=== PATIENT | female | born 1985 | race Caucasian/White ===

== ENCOUNTER 2023-03-19 20:08 | Outpatient (REF) | payer MEDICAID, SELFPAY ==
[2023-03-26 12:08] LABS: Age Gdln ACOG Testing Note (.); HPV Aptima Negative (Negative); IGP, Aptima HPV, rfx 16/18,45 Note (.)
== END 2023-03-19 20:09 | disposition home or self-care (01) ==
LOC: LAB 20:08
PROVIDERS: Visit Provider Obstetrics & Gynecology
DX: Z01.419 Encounter for gynecological examination (general) (routine) without abnormal findings (principal)
CPT/HCPCS: 87624; G0145

== ENCOUNTER 2023-10-08 22:08 | Outpatient (REF) | payer MEDICAID, SELFPAY ==
--- OUTSIDE RECORDS SUMMARY | 2023-10-08 22:14 | XMS_ITS | CCD ---
Author Organization [facility] Care Team Providers Care Manager [employer] Name Role Phone DR KHADRA COX Attending Unavailable KENNY, DR GAVIRIA Consulting Unavailable DR KHADRA COX Admitting Unavailable HOY ., DR MAIN Primary Care Unavailable KHADRA COX Attending Unavailable Allergies Allergy Classification Reported Allergen(s) Allergy Type Date of Onset Reaction(s) Facility (1 source) Codeine Drug Allergy 08-25-2014 [facility] Repository Problems Problem Classification Problem Date Documented Date Episodic/Chronic Immunizations and screening for infectious disease (1 source) Encounter for screening for human papillomavirus (HPV); Translations: [ENC SCREENING HUMAN PAPILLOMAVIRUS] Onset: 03-19-2022 Episodic Other screening for suspected conditions (not mental disorders or infectious disease) (4 sources) Encounter for screening for malignant neoplasm of cervix; Translations: [ENC SCREENING MALIG NEOPLASM CERV] Onset: 03-15-2022 Episodic Results Test Name Value Interpretation Reference Range Facil ity PAP ACOG PANEL 2: 30 to 65on 03-23-2022 . . Normal [facility] Comment on above: Result Comment: Performed at: WB Performed By: #### [id number] #### [facility] [address] [address] [address] Douglas Stout Age Gdln ACOG Testing 30-65 Normal [facility] Comment on above: Performed By: #### [id number] #### [facility] [address] [address] [address] Douglas Stout DIAGNOSIS: Comment Normal [facility] Comment on above: Result Comment: NEGATIVE FOR INTRAEPITHE LIAL LESION OR MALIGNANCY. Performed at: WB Performed By: #### [id number] #### [facility] [id number] Douglas Stout HPV Aptima Negative Normal Negative [facility] Comment on above: Result Comment: This nucleic acid amplif ication test detects fourteen high-risk HPV types (16,18,31,33,35,39,45,51,52,56,58,59,66,68) without differentiation. Performed at: =G Performed By: #### [id number] #### [facility] [address] [place] [address] Dr. Douglas Stout HPV Genotype Reflex Comment Normal [facility] Comment on above: Result Comment: Criteria not met, HPV Ge notype not performed. Performed at: WB Performed By: #### [id number] #### [facility] [address] [place] [address] Dr. Douglas Stout Methodology: Comment Normal [facility] Comment on above: Result Comment: This liquid based ThinPr ep(R) pap test was screened with the use of an image guided system. Performed at: WB Performed By: #### [id number] #### [facility] [address] [place] [address] Dr. Douglas Stout Note: Comment Normal [facility] Comment on above: Result Comment: The Pap smear is a scree neisha test designed to aid in the detection of premalignant and malignant conditions of the uterine cervix. It is not a diagnostic procedure and should not be used as the sole means of detecting cervical cancer. Both false-positive and false-negative reports do occur. . Performed at: WB Performed By: #### [id number] #### [facility] [address] [place] [address] Dr. Douglas Stout Performed by: Comment Normal [facility] Comment on above: Result Comment: Fang Raza [employer] ologist (ASCP) Performed at: WB Performed By: #### [id number] #### [facility] [address] [place] [address] Dr. Douglas Stout Specimen adequacy: Comment Normal [facility] Comment on above: Result Comment: Satisfactory for evaluat ion. Endocervical and/or squamous metaplastic cells (endocervical component) are present. Performed at: WB Performed By: #### [id number] #### [facility] [address] [place], [place] [address] Dr. Douglas Stout Encounters Encounter Date Encounter Type Care Provider Facility Start: 04-05-2023 End: 04-05-2023 ambulatory KHADRA COX Not Available Start: 03-15-2022 End: 03-15-[address] KHADRA COX Facility: Payers Date Payer Category Payer Medicaid [id number] 1985 Unknown [id number] 1985 Unknown [id number] 1958 Unknown [id number] Summary Purpose Family History No Family History Records FoundNo Family History Records Found Advance Directives No Advanced Directives Records FoundNo Advanced Directives Records Found Additional Source Comments INFORMATION SOURCE (unrecogn ized section and content) DATE CREATED AUTHOR 09/22/2022 [facility] DATE CREATED AUTHOR AUTHOR'S ORGANIZ ATION 04/07/2023 [facility] EPIC FOR RECORDS PERTAINING TO PATIENTS WHO ARE OR HAVE BEEN ENROLLED IN A CHEMICAL DEPENDENCY/SUBSTANCEABUSE PROGRAM, SOME INFORMATION MAY BE OMITTED. This clinical summary was aggregated from multiple sources. Caution should be exercised in using it in the provision of clinical care. This summary normalizes information from multiple sources, and as a consequence, information in this document may materially change the coding, format and clinical context of patient data. In addition, data may be omitted in some cases. CLINICAL DECISIONS SHOULD BE BASED ON THE PRIMARY CLINICAL RECORDS. [facility] [employer] provides no warranty or guarantee of the accuracy or completeness of information in this document.
== END 2023-10-08 22:09 | disposition home or self-care (01) ==
LOC: LAB 22:08
PROVIDERS: Visit Provider Obstetrics & Gynecology
DX: R87.612 Low grade squamous intraepithelial lesion on cytologic smear of cervix (LGSIL) (principal)
CPT/HCPCS: G0145

== ENCOUNTER 2024-03-22 12:16 | Outpatient (OUT) | payer MEDICAID, SELFPAY ==
[2024-03-22 13:41] LABS: Alanine Aminotransferase 16 U/L (14-59); Aspartate Amino Transferase 15 U/L (15-37)
== END 2024-03-22 12:17 | disposition home or self-care (01) ==
LOC: LAB 12:18
PROVIDERS: PCP Family Medicine
DX: B35.1 Tinea unguium (principal)
CPT/HCPCS: 36415; 84450; 84460

== ENCOUNTER 2024-03-25 20:57 | Outpatient (REF) | payer MEDICAID, SELFPAY ==
--- OUTSIDE RECORDS SUMMARY | 2024-03-25 21:00 | XMS_ITS | CCD ---
Author Organization [facility] Care Team Providers Care Ice Delivery Driver Name Role Phone DR HELDER TANG Attending Unavailable KENNY, DR GAVIRIA Consulting Unavailable DR HELDER TANG Admitting Unavailable COLBY ., DR MAIN Primary Care Unavailable Colby VAZQUEZ, Aris Donald Primary Care Provider [phone] HELDER TANG Attending Unavailable HELDER TANG Attending Unavailable KATHRIN BOOTH Attending Unavailable Allergies Allergy Classification Reported Allergen(s) Allergy Type Date of Onset Reaction(s) Facility (1 source) Codeine Drug Allergy 08-25-2014 [facility] (4 sources) Codeine Drug Allergy 03-19-2023 Unknown [facility] Work Phone: (4 sources) Prednisone Allergy to substance 03-19-2023 Other [facility] (4 sources) Wound Dressing Adhesive Drug Allergy 03-19-2023 Rash [facility] Medications Current Medications Medication Drug Class(es) Dates Sig (Normalized) Sig (Original) methylPREDNISolone (3 sources) Corticosteroid Start: 4 methylPREDNISolone (Medrol Dospak) 4 MG tablets Indications: Lichen planus Take as directed on package. 21 tablet 03/19/2024 Active terbinafine 250 mg oral tablet (1 source) Allylamine Antifungal Start: 4 End: 5 take 1 tablet by mouth once daily terbinafine (LamISIL) 250 MG tablet Indications: Onychomycosis Take 1 tablet (250 mg) by mouth Daily 90 tablet 03/24/2024 06/22/2024 Active Problems Active Problems Problem Classification Problem Date Documented Da te Episodic/Chronic Mycoses (5 sources) Onychomycosis; Translations: [Tinea unguium] 03-19-2024 Episodic Other connective tissue disease (2 sources) Pain in right foot; Translations: [Pain in right foot] 03-19-2024 Episodic Other inflammatory condition of skin (2 sources) Lichen planus; Translations: [Lichen planus, unspecified] 03-19-2024 Episodic Past or Other Problems Problem Classification Problem Date Documented Date [...] Name Value Interpretation Reference Range Facil ity AST AND Marcus 03-24-2024 [facility] PAP ACOG PANEL 2: 30 to 65on 03-23-2022 . . Normal [facility] Comment on above: Result Comment: Performed at: WB Performed By: #### [id number] #### [facility] [address] [place] [address] Dr. Douglas Stout Age Gdln ACOG Testing 30- Normal [facility] Comment on above: Performed By: #### [id number] #### [facility] [address] [address] [address] Douglas Stout DIAGNOSIS: Comment Normal [facility] Comment on above: Result Comment: NEGATIVE FOR INTRAEPITHE LIAL LESION OR MALIGNANCY. Performed at: WB Performed By: #### [id number] #### [facility] [address] [address] [address] Douglas Stout HPV Aptima Negative Normal Negative [facility] Comment on above: Result Comment: This nucleic acid amplif ication test detects fourteen high-risk HPV types (16,18,31,33,35,39,45,51,52,56,58,59,66,68) without differentiation. Performed at: =G Performed By: #### [id number] #### [facility] [address] [address] [address] Douglas Stout HPV Genotype Reflex Comment Normal [facility] Comment on above: Result Comment: Criteria not met, HPV Ge notype not performed. Performed at: WB Performed By: #### [id number] #### [facility] [address] [place] [address] Dr. Douglas Stout Methodology: Comment [facility] Comment on above: Result Comment: This liquid based ThinPr ep(R) pap test was screened with the use of an image guided system. Performed at: WB Performed By: #### [id number] #### [facility] [address] [place] [address] Dr. Douglas Stout Note: Comment Normal [facility] Comment on above: Result Comment: The Pap smear is a scree neisha test designed to aid in the detection of premalignant and malignant conditions of the uterine cervix. It is not a diagnostic procedure and should not be used as the sole means of detecting cervical cancer. Both false-positive and false-negative reports do occur. . Performed at: WB Performed By: #### [id number] #### [facility] [address] [place] [address] Dr. Douglas Stout Performed by: Comment Normal [facility] Comment on above: Result Comment: Fang Raza Cytotechn ologist (ASCP) Performed at: WB Performed By: #### [id number] #### [facility] [address] [place] [address] Dr. Douglas Stout Specimen adequacy: Comment [facility] Comment on above: Result Comment: Satisfactory for evaluat ion. Endocervical and/or squamous metaplastic cells (endocervical component) are present. Performed at: WB Performed By: #### [id number] #### [facility] [address] [place] [address] Dr. Douglas Stout Vital Signs Date Time Vital Sign Value Performing Clinician Faci lity 03-19-2024 13: Body height 175.3 cm Kathrin Booth DPM Work Phone: [facility] 03-19-2024 13:090400 Body mass index (BMI) [Ratio] 28.32 kg/m2 Kathrin Booth DPM Work Phone: [facility] 03-19-2024 13:090400 Body weight 87 kg Kathrin MARTINEZM Work Phone: [facility] Encounters Encounter Date Encounter Type Care Provider Facility Start: 03-24-2024 End: 03-24-2024 Orders Only Kathrin Booth DPM Work Phone: [facility] Comment on above: Onychomycosis (Prima ry Dx) Start: 03-19-2024 End: 03-19-2024 Bamboo flowsheet Kathrin Booth DPM Work Phone: [facility] Start: 03-19-2024 End: 03-19-2024 Bamboo flowsheet Kathrin Booth DPM Work Phone: [facility] Start: 03-19-2024 End: 03-19-2024 Office outpatient new 45 minutes Kathrin Booth DPM Work Phone: [facility] Comment on above: Onychomycosis (Prima ry Dx); Tinea pedis of right foot; Lichen planus; Right foot pain Start: 03-19-2024 End: 03-19-2024 ambulatory KATHRIN BOOTH Not Available Start: 10-08-2023 End: 10-08-2023 ambulatory HELDER TANG Not Available Start: 04-05-2023 End: 04-05-2023 ambulatory HELDER TANG Not Available Start: 03-15-2022 End: 03-15-[address] HELDER TANG Facility: Procedures Date Procedure Procedure Detail Performing Clinician Start: 03-24-2024 AST AND ALT Kathrin Booth DPM Work Phone: Plan of Treatment Date Care Activity Detail Author Start: 07-23-2024 End: 07-23-2024 Patient encounter procedure 07/23/2024 2:00 PM EST Office Visit [facility] [address] [place] [address] Kathrin Booth DPM [address] [place] [address] [facility] Start: 03-25-2024 End: 03-25-2024 Patient encounter procedure 03/25/2024 2:00 PM EST Office Visit [facility] [address] [place] [id number] Helder Tang DO [address] [place] [address] [facility] Start: 03-19-2024 End: 03-19-2025 Alanine aminotransferase [Enzymatic activity/volume] in Serum or Plasma ALT Lab Routine Onychomycosis Expected: 03/19/2024 (Approximate), Expires: 03/19/2025 [facility] Work Phone: Comment on above: Expected: 03/19/2024 (Approximate), Expires: 03/19/2025 Start: 03-19-2024 End: 03-19-2025 Aspartate aminotransferase [Enzymatic activity/volume] in Serum or Plasma AST Lab Routine Onychomycosis Expected: 03/19/2024 (Approximate), Expires: 03/19/2025 [facility] Comment on above: Expected: 03/19/2024 (Approximate), Expires: 03/19/2025 Start: 03-19-2024 End: 03-19-2024 Patient encounter procedure 03/19/2024 1:30 PM EDT Office Visit [facility] [address] [place] [phone] Kathrin Booth DPM [address] [place] [address] Arrived [facility] Comment on above: Arrived Immunizations Immunization Date Immunization Notes Care Provider [facility] 01-19-1999 measles, mumps and rubella virus vaccine Kathrin Booth DPM Work Phone: [facility] 01-08-1992 diphtheria, tetanus toxoids and pertussis vaccine Kathrin Booth DPM Work Phone: [facility] 01-07-1991 diphtheria, tetanus toxoids and pertussis vaccine Kathrin Booth DPM Work Phone: [facility] 01-07-1991 trivalent poliovirus vaccine, live, oral Kathrin Rusher DPM Work Phone: [facility] 12-31-1989 diphtheria, tetanus toxoids and pertussis vaccine Kathrin Rusher DPM Work Phone: [facility] 05-18-1988 haemophilus influenz ae type b vaccine, conjugate unspecified formulation Kathrin Rusher DPM Work Phone: [facility] 03-15-1988 diphtheria, tetanus toxoids and pertussis vaccine Kathrin Rusher DPM Work Phone: [facility] 03-15-1988 trivalent poliovirus vaccine, live, oral Kathrin Rusher DPM Work Phone: [facility] 02-03-1988 diphtheria, tetanus toxoids and pertussis vaccine Kathrin Rusher DPM Work Phone: [facility] 02-03-1988 trivalent poliovirus vaccine, live, oral Kathrin Rusher DPM Work Phone: [facility] 1986 measles, mumps and rubella virus vaccine Kathrin Rusher DPM Work Phone: [facility] 1986 trivalent poliovirus vaccine, live, oral Kathrin Rusher DPM Work Phone: [facility] Payers Date Payer Category Payer Medicaid [employer] [place] [place] [id number] 2022 Medicaid [id number] 1986 Unknown [id number] 1986 Unknown [id number] 1986 Unknown [id number] 1986 Unknown [id number] 1959 Unknown [id number] Social History Date Type Detail Facility Start: 03-05-2023 End: 03-19-2024 Tobacco smoking status ILIS Smokes tobacco daily [facility] History of tobacco use Cigarette Smoker [facility] Start: 10-08-2023 End: 03-19-2024 Alcoholic beverage intake Current drinker of alcohol (finding) [facility] Start: 03-05-2023 End: 03-19-2024 History of Social function [facility] Start: 03-05-2023 End: 03-19-2024 Tobacco use panel [facility] Start: 03-05-2023 Tobacco Comment Patient starte d smoking 20 years ago (noted 03/15/22).Smokes 11-20 cigarettes/day after 31-60 minutes of waking up. [facility] Start: 03-05-2023 Alcohol Comment 3 or 4 drinks on a typical day / 2 to 4 times a month. [facility] Start: 1985 Sex assigned at Female [facility] Start: 03-14-2023 Gender identity Identifies as female gender (finding) [facility] Start: 03-14-2023 Sexual orientation Heterosexual (fin ding) [facility] History of Present illness Narrative 03-19-2024 Kathrin Booth DPM - 03/19/2024 1:30 PM EDT Note Date & Type Note Facility 03-19-2024 History of Presen t illness Narrative Images from the original note were not included. Subjective Patient ID: Carly Ventura is a 39 y.o. 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 Pt relates having lichens planus and is now localized to right foot, pt relates very itchy. ). HPI This is a new patient who presents to clinic with multiple concerns. Patient primarily concerned with a rash on the plantar aspect of the right foot. She states that she has been diagnosed with lichen planus a proximally 3 years ago by a machine repairman who took a biopsy from a rash on her wrist. She states that since that time she has had a rash on the plantar aspect of the right foot. She notes pruritus. She has tried topical steroid ointment as well as topical antifungal without relief of symptoms. Continues to have redness, scaling, pruritus on the plantar aspect of the right foot. Additionally patient is concerned about yellow discoloration of the right hallux toenail. She states that she noticed this a few months ago after removing toenail [place]. No treatment tried. She denies injury. Review of Systems Constitutional: Negative for activity change and appetite change. Respiratory: Negative for chest tightness and shortness of breath. Cardiovascular: Negative for chest pain and leg swelling. Musculoskeletal: Negative for arthralgias. Skin: Positive for color change. Negative for wound. Neurological: Negative for weakness and numbness. Psychiatric/Behavioral: Negative for agitation and behavioral problems. Hematological: Does not bruise/bleed easily. Endocrine: Negative for cold intolerance and heat intolerance. Allergic/Immunologic: Negative for immunocompromised state. Past medical History Past Medical History: Diagnosis Date Anxiety Cervical dysplasia Cystitis Heart murmur HPV in female Medications Current Outpatient Medications: methylPREDNISolone (Medrol Dospak) 4 MG tablets, Take as directed on package., Disp: 21 tablet, Rfl: 0 Allergies Codeine, Prednisone, and Wound dressing adhesive Past Surgical History Past Surgical History: Procedure Laterality Date CERVICAL BIOPSY W/ LOOP ELECTRODE EXCISION 2018 SECTION, LOW TRANSVERSE 2005,2008 PAP SMEAR 02/16/2020 negative TUBAL LIGATION 2009 Family History Family History Problem Relation Name Age of Onset Heart disease Mother Psoriasis Neg Hx Objective Physical Exam Constitutional: General: She is not in acute distress. HENT: Head: Normocephalic and atraumatic. Cardiovascular: Pulses: Normal pulses. Pulmonary: Effort: Pulmonary effort is normal. No respiratory distress. Musculoskeletal: Cervical back: Neck supple. Skin: Capillary Refill: Capillary refill takes less than 2 seconds. Comments: Right hallux toenail exhibit clinical mycosis with thickened appearance, yellow/brown discoloration, crumbly texture, subungual debris. There is onycholysis of approximately 50 percent of the distal toenail. Slight tenderness with manipulation. There is scaling, peeling of the skin with mild erythema in a moccasin distribution on the plantar aspect of the right foot. No active drainage noted. Mild maceration in peeling of the skin with redness interdigitally in the 3rd and 4th webspace most notably of the right foot. Neurological: Mental Status: She is alert. Comments: No loss of protective sensation, gross sensation intact. Psychiatric: Mood and Affect: Mood normal. Behavior: Behavior normal. Assessment/Plan ICD-10-CM 1. Onychomycosis B35.1 ALT AST 2. Tinea pedis of right foot B35.3 3. Lichen planus L43.9 methylPREDNISolone (Medrol Dospak) 4 MG tablets 4. Right foot pain M79.671 Patient was examined and evaluated. Clinically patient seems to have onychomycosis and I discussed causes and treatment options. Treatment options were laid out including observation versus periodic debridement versus topical or oral antifungals. Additionally I have discussed chemical matrixectomy. At this time the patient elects for oral antifungal therapy. A clean nail nipper was utilized to take a sample of the affected right hallux toenail and sent for pathological examination, fungal stain, and culture to guide antifungal therapy. A nail nipper and electric bur tap grinder were also utilized to debride the affected nails to help reduce fungal load and to palliate the symptomatic nails. Once nail specimen reviewed if there is positive fungal infection then she will get lab work. I printed out in order requisition for her today because she will get this done at [facility]. When I receive these results I will prescribe oral antifungal therapy if appropriate. Follow-up in 4 months. Additionally patient has clinical exam consistent with tinea pedis. Possibility of lichen planus as well given her history of biopsy but this was many years ago and on her wrist. Recommend oral Medrol Dosepak at this time to reduce pruritic symptomatology along the plantar aspect of the right foot. Also believe there is a component of fungal infection given the scaling, erythema, peeling of the skin in a moccasin distribution. Recommend oral antifungal therapy. At this time we will see if there is fungal disease in the nail as well because this will change the duration of oral Lamisil therapy. If her liver enzymes are within normal we will do 3 months of oral Lamisil which will clear both the skin and nail infection very likely. Follow up 4 months for re-evaluation. This note was created with the assistance of a speech recognition program. While intending to generate a timely document that accurately reflects the content of the visit, no guarantee can be provided that every grammatical or spelling mistake has been or will be identified or corrected. Thank you for your understanding. Kathrin Booth DPM documented in this encounter [facility] Evaluation note Note Date & Type Note Facility Evaluation note Diagnosis Onychomycosis- Primary Dermatophytosis of nail Tinea pedis of right foot Lichen planus Right foot pain Pain in soft tissues of limb documented in this encounter [facility] Evaluation note Note Date & Type Note Facility Evaluation note Diagnosis Onychomycosis- Primary Dermatophytosis of nail documented in this encounter [facility] Summary Purpose Family History No Family History Records FoundNo Family History Records Found Advance Directives No Advanced Directives Records FoundNo Advanced Directives Records Found Additional Source Comments INFORMATION SOURCE (unrecogn ized section and content) DATE CREATED AUTHOR 09/22/2022 [facility] DATE CREATED AUTHOR AUTHOR'S ORGANIZ ATION 03/21/2024 [facility] EPIC Care Teams (unrecognized sec tion and content) Ice Delivery Driver Relationship Specialty Start Date End Date Aris Bishop MD [address] [place] [address] PCP - General Family Medicine 03/19/23 Ice Delivery Driver Relationship Specialty Start Date End Date Aris Bishop MD [address] [place] [address] PCP - General Family Medicine 03/19/23 Ice Delivery Driver Relationship Specialty Start Date End Date Aris Bishop MD [address] [place] [address] PCP - General Family Medicine 03/19/23 Reason for Visit (unrecogniz ed section and content) Reason Comments 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 Pt relates having lichens planus and is now localized to right foot, pt relates very itchy. FOR RECORDS PERTAINING TO PATIENTS WHO ARE [...] BE BASED ON THE PRIMARY CLINICAL RECORDS. [employer] provides no warranty or guarantee of the accuracy or completeness of information in this document.
== END 2024-03-25 20:58 | disposition home or self-care (01) ==
LOC: LAB 20:57
PROVIDERS: PCP Family Medicine; Visit Provider Obstetrics & Gynecology
DX: Z01.419 Encounter for gynecological examination (general) (routine) without abnormal findings (principal)
CPT/HCPCS: 87624; 88175

== ENCOUNTER 2024-03-29 07:58 | Outpatient (OUT) | payer MEDICAID, SELFPAY ==
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
[2024-03-29 08:39] LABS: Basophils Absolute Auto 0.1 10^3/uL (0.0-0.1); Basophils Percent Auto 0.5 % (0.2-2.0); Eosinophils Absolute Auto 0.2 10^3/uL (0.0-0.7); Eosinophils Percent Auto 1.7 % (0.9-7.0); Hematocrit 42.5 % (36.0-48.0); Hemoglobin 13.8 g/dL (12.0-16.0); Immature Granulocytes Abs Auto 0.07 10^3/uL (0.00-0.03); Immature Granulocytes Pct Auto 0.7 % (0.0-0.5); Lymphocytes Absolute Auto 2.6 10^3/uL (1.2-3.8); Lymphocytes Percent Auto 25.5 % (20.5-60.0); Mean Corpuscular HGB Conc 32.5 g/dL (29.9-35.2); Mean Corpuscular Volume 95.5 fL (81.0-99.0); Mean Platelet Volume 9.9 fL (9.5-13.5); Monocytes Absolute Auto 0.8 10^3/uL (0.3-0.8); Monocytes Percent Auto 7.9 % (1.7-12.0); Neutrophils Absolute Auto 6.5 10^3/uL (1.4-6.5); Neutrophils Percent Auto 63.7 % (43.0-75.0); Platelet Count 233 10^3/uL (150-450); Red Blood Count 4.45 10^6/uL (4.20-5.40); Red Cell Distribution Width 13.9 % (11.0-15.0); White Blood Count 10.2 10^3/uL (4.0-11.0)
[2024-03-29 08:44] LABS: Estimated Average Glucose 111 mg/dL; Glycohemoglobin A1C 5.5 % (4.5-6.2)
[2024-03-29 09:20] LABS: Alanine Aminotransferase 15 U/L (14-59); Albumin Globulin Ratio 0.9; Albumin Level 3.2 g/dL (3.4-5.0); Alkaline Phosphatase 86 U/L (46-116); Anion Gap 13.4; Aspartate Amino Transferase 11 U/L (15-37); BUN Creatinine Ratio 8.9; Bilirubin Total 0.5 mg/dL (0.2-1.0); Calcium 8.5 mg/dL (8.5-10.1); Carbon Dioxide 25.9 mmol/L (21.0-32.0); Chloride 107 mmol/L (98-107); Chol HDL Ratio 3.6; Cholesterol 221 mg/dL (<=200); Estimated GFR (African America >60 (>=60 mL/min/1.73m^2); Estimated GFR (Non-African Ame >60 (>=60 mL/min/1.73m^2); Globulin 3.6 g/dL; Glucose 97 mg/dL (74-106); HDL Cholesterol 61 mg/dL (40-60); Potassium 4.3 mmol/L (3.5-5.1); Sodium 142 mmol/L (136-145); Total Protein 6.8 g/dL (6.4-8.2); Triglycerides 120 mg/dL (<=150)
== END 2024-03-29 07:59 | disposition home or self-care (01) ==
LOC: LAB 07:59
PROVIDERS: Visit Provider Obstetrics & Gynecology
DX: R53.83 Other fatigue (principal)
CPT/HCPCS: 36415; 80053; 80061; 83036; 84443; 85025

== ENCOUNTER 2024-10-04 08:50 | Outpatient (OUT) | payer MEDICAID, SELFPAY ==
--- OUTSIDE RECORDS SUMMARY | 2024-10-04 08:55 | XMS_ITS | CCD ---
Author Organization [facility] Providers Care Hosted Services Analyst Name Role Phone DR KHADRA TANG Attending Unavailable KITTY, DR GAVIRIA Consulting Unavailable KITTY, DR GAVIRIA Admitting Unavailable COLBY ., DR MAIN Primary Care Unavailable Aris Bishop MD Primary Care Provider [phone] KHADRA TANG Attending Unavailable KATHRIN MANSFIELD Attending Unavailable KHADRA TANG Attending Unavailable JOHN CEJA Attending Unavailable JOHN CEJA Referring Unavailable SANDER DANIELS Attending Unavailable JOHN CEJA Referring Unavailable NATI EDEN Attending Unavailable JOHN CEJA Referring Unavailable SANDER DANIELS Attending Unavailable JOHN CEJA Referring Unavailable LEROY IVERSON Attending Unavailable JOHN CEJA Referring Unavailable JOHN CEJA Attending Unavailable LEROY IVERSON Attending Unavailable JOHN CEJA Referring Unavailable JAMEEL THEODORE Attending Unavailable JOHN CEJA Referring Unavailable LEROY IVERSON T Attending Unavailable JOHN CEJA Referring Unavailable LEROY IVERSON T Attending Unavailable JOHN CEJA Referring Unavailable JAMEEL THEODORE Attending Unavailable JOHN CEJA Referring Unavailable LEROY IVERSON T Attending Unavailable JOHN CEJA Referring Unavailable JR. BROWN GEORGE C Attending Unavaila JOHN Gordon Attending Unavailable JOHN CEJA Referring Unavailable NO PCP, NO PCP Primary Care Unavailable JOHN CEJA Referring Unavailable NO PCP, NO PCP Primary Care Unavailable SYD DAI Attending Unavailable JOHN CEJA Referring Unavailable NO PCP, NO PCP Primary Care Unavailable SYD DAI Attending Unavailable SYD DAI Referring Unavailable NO PCP, NO PCP Primary Care Unavailable SYD DAI Attending Unavailable MAILE HERRERA Referring Unavailable NO PCP, NO PCP Primary Care Unavailable Allergies Allergy Classification Reported Allergen(s) Allergy Type Date of Onset Reaction(s) Facility (3 sources) Codeine; Translations: [CODEINE] Drug Allergy 5 [facility] Repository (20 sources) Codeine Drug Allergy 3 Unknown [facility] Work Phone: (20 sources) Prednisone Allergy to substance 3 Other [facility] (20 sources) Wound Dressing Adhesive Drug Allergy 3 Rash [facility] (1 source) Adhesive agent; Translations: [ADHESIVE] Propensity to adverse reactions to drug (disorder) 5 [facility] Repository Medications Current Medications Medication Drug Class(es) Dates Sig (Normalized) Sig (Original) terbinafine 250 mg oral tablet (6 sources) Allylamine Antifungal Start: 03-24-2024 End: 06-22-2024 take 1 tablet by mouth once daily terbinafine (LamISIL) 250 MG tablet Indications: Onychomycosis Take 1 tablet (250 mg) by mouth Daily 90 tablet 03/24/2024 06/22/2024 Active Completed/Discontinued Medications Medication Drug Class(es) Dates Sig (Normalized) Sig (Original) celecoxib 200 mg oral capsule (19 sources) Nonsteroidal Anti-inflammatory Drug Start: 5 End: 5 take 1 capsule by mouth once daily celecoxib (CeleBREX) 200 MG capsule Indications: Acute pain of left shoulder , Scapular dyskinesis Take 1 capsule (200 mg) by mouth Daily 30 capsule 1 07/02/2024 08/26/2024 Discontinued (Therapy completed) methylPREDNISolone (6 sources) Corticosteroid Start: 4 End: 4 methylPREDNISolone (Medrol Dospak) 4 MG tablets Indications: Lichen planus Take as directed on package. 21 tablet 03/19/2024 03/25/2024 Discontinued Start: 03-19-2024 methylPREDNISo lone (Medrol Dospak) 4 MG tablets Indications: Lichen planus Take as directed on package. 21 tablet 03/19/2024 Active Problems Active Problems Problem Classification Problem Date Documented Date Episodic/Chronic Malaise and fatigue (2 sources) Fatigue; Translations: [Other fatigue] 03-25-2024 Episodic Mycoses (5 sources) Onychomycosis; Translations: [Tinea unguium] 03-19-2024 Episodic Other connective tissue disease (2 sources) Pain in right foot; Translations: [Pain in right foot] 03-19-2024 Episodic Other connective tissue disease (2 sources) Myofascial pain; Translations: [Myalgia, other site] 07-02-2024 Episodic Other hereditary and degenerative nervous system conditions (8 sources) Finding of scapular structure; Translations: [Other specified extrapyramidal and movement disorders] 07-02-2024 Chronic Other inflammatory condition of skin (2 sources) Lichen planus; Translations: [Lichen planus, unspecified] 03-19-2024 Episodic Other non-traumatic joint disorders (4 sources) Derangement of left shoulder joint; Translations: [Other specific joint derangements of left shoulder, not elsewhere classified] 07-30-2024 Chronic Other non-traumatic joint disorders (1 source) Other specific joint derangements of left shoulder, not elsewhere classified; Translations: [Other specific joint derangements of left shoulder, not elsewhere classified] Onset: 08-22-2024 Chronic Other non-traumatic joint disorders (10 sources) Pain in left shoulder; Translations: [Pain in joint, shoulder region] 07-02-2024 Episodic Other non-traumatic joint disorders (1 source) Shoulder pain Onset: 08-27-2024 Episodic Spondylosis; intervertebral disc disorders; other back problems (1 source) Spondylosis without myelopathy or radiculopathy, thoracic region; Translations: [Spondylosis without myelopathy or radiculopathy, thoracic region] Onset: 10-01-2024 Chronic Spondylosis; intervertebral disc disorders; other back problems (8 sources) Acute thoracic back pain; Translations: [Pain in thoracic spine] Onset: 08-22-2024 07-30-2024 Episodic Unclassified (2 sources) Acute pain of left shoulder 07-02-2024 Unclassified (2 sources) Finding of scapular structure 07-02-2024 Past or Other Problems Problem Classification Problem [...] Results Test Name Value Interpretation Reference Range Facility MR THORACIC SPINE WO CONTon 09-28-2024 MR THORACIC SPINE WO CONT MR THORACIC SPINE WO CONT EXAM: MRI THORACIC SPINE WITHOUT CONTRAST CLINICAL HISTORY: Thoracic spine pain, failure to improve. TECHNIQUE: Routine unenhanced MRI of the thoracic spine was obtained. COMPARISONS: Radiographs of the thoracic spine dated 08/22/2024 FINDINGS: There is no malalignment of the thoracic spine. There is no significant loss of the vertebral body or disc space heights. There are focal areas of marrow edema involving the left half of the T5, T6, and T7 vertebral bodies also involving the pedicles, facets, and adjacent posterior ribs. There are localized degenerative changes of the costovertebral junctions and these findings are suspected degenerative and mechanical in etiology. There is no associated loss of the disc space heights or convincing discrete fracture identified. There is also adjacent focal degenerative endplate marrow edema involving the left half of the T4-5 disc space. There is a benign hemangioma in the T12 vertebral body. There are no signal abnormalities of the visualized thoracic spinal cord. Disc space levels: The disc space levels of the thoracic spine are normal without evidence for significant disc bulge/protrusion, canal stenosis, neural foraminal stenosis, or focal nerve impingement. IMPRESSION: 1. Sequential marrow edema involving the left halves of the T5, T6, and T7 vertebral bodies, as well as the adjacent pedicles, facets, and ribs. There are associated degenerative changes of the left T5, T6, and T7 costovertebral junctions and these findings are suspected to represent a chronic degenerative and mechanical etiology. There is no associated loss of the vertebral body or disc space heights. There is no convincing discrete fracture identified. 2. Localized minimal nonaggressive degenerative endplate marrow edema involving the adjacent left posterior T4-5 disc space. 3. No loss of the vertebral body or disc space height throughout the thoracic spine. The disc space levels of the thoracic spine are normal. Finalized by August Obrien MD on 09/28/2024 12:18 AM Normal [facility] MR SHOULDER LT WO CONTon MR SHOULDER LT WO CONT MR SHOULDER LT WO CONT MR SHOULDER LT WO CONT CLINICAL INFORMATION: 39 years old Female with left shoulder pain times 3-5 months. COMPARISON: None PROCEDURE: Multiplanar multisequence images of the shoulder performed. No intravenous contrast. FINDINGS: ROTATOR CUFF AND ASSOCIATED STRUCTURES Long head biceps tendon: No tear or significant tendinosis. The extra articular portion of the long head of the biceps tendon is properly situated within the bicipital groove. Rotator cuff and muscles: Supraspinatus: No tear or tendinopathy. Infraspinatus: No tear or tendinopathy. Teres minor: No tear or tendinopathy. Subscapularis: No tear or tendinopathy. Fluid: No fluid in the bursa. Minimal thickening/edema of the bursa OSSEOUS STRUCTURES Acromioclavicular joint and shoulder arch: Type 1 acromion. No os acromiale. No osteoarthritis of the acromioclavicular joint. No narrowing of the shoulder arch. No signs of impingement. Bones: No Hill-Sachs, reverse Hill-Sachs, or bony Bankart lesions. No fracture. No osteonecrosis. No suspicious osseous lesion. GLENOHUMERAL JOINT Joint: Trace joint fluid. Normal alignment. Cartilage: No full thickness chondral defect. Labrum: No displaced labral tear. No paralabral cyst. Other support structures: No capsular or ligamentous abnormality. IMPRESSION: * Minimal thickening/edema of the subacromial/subdeltoid bursa. No fluid in the bursa. * Otherwise unremarkable MRI of the left shoulder. No discrete rotator cuff tear. Approved by Resident Clint Sanchez DO on 08/25/2024 1:07 PM ICliff MD have personally reviewed the image(s) and agree with and/or edited the report Finalized by Cliff Cantor MD on 08/25/2024 1:20 PM Normal [facility] XR SPINE THORACIC 2 VWSon XR SPINE THORACIC 2 VWS XR SPINE THORACIC 2 VWS EXAM: XR SPINE THORACIC 2 VWS CLINICAL INFORMATION: Acute left-sided thoracic pain. COMPARISON: None. FINDINGS: There is no malalignment within the thoracic spine. There is no significant loss of the vertebral body or disc space heights. There is no evidence for an acute displaced fracture. IMPRESSION: Normal AP and lateral views of the thoracic spine. Finalized by August Obrien MD on 08/24/2024 2:43 PM Normal [facility] XR Shoulder - left 2 Viewson 07-02-2024 Imaging Result: AP and Scap Y Left shoulder: No acute fracture or dislocation Minimal degenerative changes AC joint Visualized lung kingsley unremarkable Glenohumeral joint well aligned Impression: no acute process left shoulder [facility] observation (narrative[facility] IGP,APTIMA HPV,AGE GDLNon AGE GDLN ACOG TESTING Note . [facility] Comment on above: TESTS RESULT FLAG UN ITS REF RANGE LAB Clinician Provided Cytology Information Source.............Cervix;Endocervix No. of containers..01 ThinPrep Vial Age Algo ACOG Juana... 30-65 01 FLAG LEGEND: L-Low Normal,H-High Normal,LL-Alert Low,HH-Alert High <-Panic Low,>-Panic High,A-Abnormal,AA-Critical Abnormal Performed at: 01 =[facility] [place] [address] Lesley Metz MD, HPV APTIMA Negative Negative [facility] Comment on above: This nucleic acid am plification test detects fourteen high- risk HPV types (16,18,31,33,35,39,45,51,52,56,58,59,66,68) without differentiation. Performed at: =[facility] [place] [address] [facility] [place] [id number] Internal Review And Audit Compliance: Lesley Metz MD, Phone: [phone] Performed at: - [facility] [address] [facility] [place] [id number] Internal Review And Audit Compliance: Lesley Metz MD, Phone: [phone] IGP, APTIMA HPV, RFX 16/18,45 Note Abnormal . [facility] Comment on above: TESTS RESULT FLAG UN ITS REF RANGE LAB DIAGNOSIS: [A] 02 EPITHELIAL CELL ABNORMALITY. ATYPICAL SQUAMOUS CELLS OF UNDETERMINED SIGNIFICANCE (ASC-US). Recommendation: [A] 02 Suggest follow up as clinically appropriate. Specimen adequacy: 02 Satisfactory for evaluation. Endocervical and/or squamous metaplastic cells (endocervical component) are present. Performed by: 02 Jody Merino, Senior Lead Project Manager (ASCP) Electronically si... 02 Keren Jarrell MD, Pathologist . 02 Pathologist ICD10: 02 R87.610 Note: Note 02 The Pap smear is a screening test designed to aid in the detection of premalignant and malignant conditions of the uterine cervix. It is not a diagnostic procedure and should not be used as the sole means of detecting cervical cancer. Both false-positive and false-negative reports do occur. Test Methodology: Note 02 This liquid based ThinPrep(R) pap test was screened with the use of an image guided system. HPV Genotype Reflex Note 02 Criteria not met, HPV Genotype not performed. FLAG LEGEND: L-Low Normal,H-High Normal,LL-Alert Low,HH-Alert High <-Panic Low,>-Panic High,A-Abnormal,AA-Critical Abnormal Performed at: [address] [id number] Lesley Metz MD, Interpretation and review of laboratory results Abnormal [facility] re BRUSH-SPATULA CERVIX ENDOCERVIX CLINISYNC [facility] Healthcar e ALL CBC WITH AUTO DIFFon BASOPHILS ABSOLUTE AUTO 0.1 [facility] Basophils/100 WBC (Bld) 0.5 % 0.2 - 2.0 % [facility] Eosinophils/100 WBC (Bld) 1.7 % 0.9 - 7.0 % [facility] Erythrocyte distribution width (RBC) [Ratio] 13.9 % 11.0 - 15.0 % [facility] Hematocrit (Bld) [Volume fraction] 42.5 % 36.0 - 48.0 % [facility] Hemoglobin (Bld) [Mass/Vol] 13.8 g/dL 12.0 - 16.0 g/dL [facility] IMMATURE GRANULOCYTES ABS AUTO 0.07 High [facility] Immature granulocytes/100 WBC (Bld) 0.7 % High 0.0 - 0.5 % [facility] Interpretation and review of laboratory results Abnormal [facility] re LYMPHOCYTES ABSOLUTE AUTO 2.6 [facility] Lymphocytes/100 WBC (Bld) 25.5 % 20.5 - 60.0 % [facility] MCH (RBC) [Entitic mass] 31 pg 26.7 - 34.0 pg [facility] MCHC (RBC) [Mass/Vol] 32.5 g/dL 29.9 - 35.2 g/dL [facility] MCV (RBC) [Entitic vol] 95.5 fL 81.0 - 99.0 fL [facility] MONOCYTES ABSOLUTE AUTO 0.8 [facility] Monocytes/100 WBC (Bld) 7.9 % 1.7 - 12.0 % [facility] NEUTROPHILS ABSOLUTE AUTO 6.5 [facility] Neutrophils/100 WBC (Bld) 63.7 % 43.0 - 75.0 % [facility] Platelet mean volume (Bld) [Entitic vol] 9.9 fL 9.5 - 13.5 fL [facility] EO # 0.2 [facility] PLT 233 [facility] RBC 4.45 [facility] WBC 10.2 [facility] AST AND Marcus 03-24-2024 [facility] Cytology Cervical or vaginal smear or scraping studyOrdered By: Herlinda Saenz on 10-08-2023 [facility] PAP ACOG PANEL 2: 30 to 65on 03-23-2022 . . Normal [facility] Comment on above: Result Comment: Perf ormed at: WB Performed By: #### [id number] #### [facility] [address] [address] [address] Douglas Stout Age Gdln ACOG Testing 30-65 [facility] Comment on above: Performed By: #### [id number] #### [facility] [address] [address] [address] Douglas Stout DIAGNOSIS: Comment Normal [facility] Comment on above: Result Comment: NEGA TIVE FOR INTRAEPITHELIAL LESION OR MALIGNANCY. Performed at: WB Performed By: #### [id number] #### [facility] [address] [address] [address] Douglas Stout HPV Aptima Negative Normal Negative [facility] Comment on above: Result Comment: This nucleic acid amplification test detects fourteen high-risk HPV types (16,18,31,33,35,39,45,51,52,56,58,59,66,68) without differentiation. Performed at: =G Performed By: #### [id number] #### [facility] [address] [address] [address] Douglas Stout HPV Genotype Reflex Comment Normal [facility] Comment on above: Result Comment: Crit eria not met, HPV Genotype not performed. Performed at: WB Performed By: #### [id number] #### [facility] [address] [address] [address] Douglas Stout Methodology: Comment Normal [facility] Comment on above: Result Comment: This liquid based ThinPrep(R) pap test was screened with the use of an image guided system. Performed at: WB Performed By: #### [id number] #### [facility] [address] [address] [address] Douglas Stout Note: Comment Normal [facility] Comment on above: Result Comment: The Pap smear is a screening test designed to aid in the detection of premalignant and malignant conditions of the uterine cervix. It is not a diagnostic procedure and should not be used as the sole means of detecting cervical cancer. Both false-positive and false-negative reports do occur. . Performed at: WB Performed By: #### [id number] #### [facility] [address] [address] [address] Douglas Stout Performed by: Comment Normal [facility] Comment on above: Result Comment: Nicolette Raza, Senior Lead Project Manager (ASCP) Performed at: WB Performed By: #### [id number] #### [facility] [address] [place] [address] Dr. Douglas Stout Specimen adequacy: Comment Normal [facility] Comment on above: Result Comment: Sati sfactory for evaluation. Endocervical and/or squamous metaplastic cells (endocervical component) are present. Performed at: WB Performed By: #### [id number] #### [facility] [address] [place] [address] Dr. Douglas Stout Vital Signs Date Time Vital Sign Value Performing Clinician Faci lity 03-25-2024 14:24050 Body height 175.3 cm [employer] Work Phone: [facility] 03-25-2024 14:24-0500 Body mass index (BMI) [Ratio] 28.86 kg/m2 [employer] Work Phone: [facility] 03-25-2024 14:24-050 Body weight 88.63 kg [employer] Work Phone: [facility] 03-25-2024 14:24-0500 Diastolic blood pressure 70 mm[Hg] [employer] Work Phone: [facility] 03-25-2024 14:24-0500 Systolic blood pressure 124 mm[Hg] Khadra Tang DO Work Phone: [facility] 03-19-2024 13: Body height 175.3 cm Kathrin Mansfield DPM Work Phone: [facility] 03-19-2024 13:040 Body mass index (BMI) [Ratio] 28.32 kg/m2 Kathrin Mansfield DPM Work Phone: [facility] 03-19-2024 13: Body weight 87 kg Kathrin Mansfield DPM Work Phone: [facility] Encounters Encounter Date Encounter Type Care Provider Facility Start: 10-01-2024 End: 10-01-2024 [facility] Start: 09-25-2024 End: 09-25-2024 [facility] Start: 08-28-2024 End: 08-28-2024 Telephone encounter Jr. Jennifer Brown DO Work Phone: [facility] Comment on above: change appt Start: 08-27-2024 End: 08-27-2024 [facility] Start: 08-26-2024 End: 08-26-2024 Office outpatient visit 15 minutes Jr. Jennifer Brown DO Work Phone: [facility] Comment on above: Acute left-sided tho racic back pain (Primary Dx) Start: 08-26-2024 End: 08-26-2024 ambulatory JENNIFER VIZCAINO Not Available Start: 08-25-2024 End: 08-26-2024 ambulatory Leroy Iverson PT Work Phone: [facility] Comment on above: Acute pain of left s houlder (Primary Dx); Scapular dyskinesis Start: 08-25-2024 End: 08-25-2024 Bamboo flowsheet Leroy Iverson PT Work Phone: [facility] Start: 08-25-2024 End: 08-25-2024 Bamboo flowsheet Leroy Tone Blackston PT Work Phone: [facility] Start: 08-22-2024 End: 08-22-2024 ambulatory JOHN CEJA [facility] Start: 08-20-2024 End: 08-20-2024 ambulatory Jameel Brink INSTRUCTIONAL DESIGN SPECIALIST [facility] Comment on above: Acute pain of left s houlder (Primary Dx); Scapular dyskinesis Start: 08-20-2024 End: 08-20-2024 Bamboo flowsheet Jameel Brink INSTRUCTIONAL DESIGN SPECIALIST [facility] Start: 08-20-2024 End: 08-20-2024 Bamboo flowsheet Jameel Brink INSTRUCTIONAL DESIGN SPECIALIST [facility] Start: 08-14-2024 End: 08-14-2024 ambulatory Leroy Tone Blackston PT Work Phone: [facility] Comment on above: Acute pain of left s houlder (Primary Dx); Scapular dyskinesis Start: 08-14-2024 End: 08-14-2024 Bamboo flowsheet Leroy T Blackston PT Work Phone: [facility] Start: 08-14-2024 End: 08-14-2024 Bamboo flowsheet Leroy T Blackston PT Work Phone: [facility] Start: 08-12-2024 End: 08-13-2024 ambulatory LEROY T BLACKSTON Not Available Start: 08-06-2024 End: 08-06-2024 ambulatory JAMEEL BRINK Not Available Start: 08-05-2024 End: 08-05-2024 ambulatory LEROY Tone BLACKSTON Not Available Start: 07-30-2024 End: 07-30-2024 Bamboo flowsheet John Ceja PA Work Phone: [facility] Start: 07-30-2024 End: 07-30-2024 Bamboo flowsheet John Ceja PA Work Phone: [facility] Start: 07-30-2024 End: 07-30-2024 Office outpatient visit 15 minutes John Ceja PA Work Phone: [facility] Comment on above: Acute pain of left s houlder (Primary Dx); Acute left-sided thoracic back pain; Internal derangement of left shoulder Start: 07-30-2024 End: 07-30-2024 ambulatory JOHN J CEJA Not Available Start: 07-28-2024 End: 07-29-2024 ambulatory LEROY IVERSON Not Available Start: 07-28-2024 End: 07-28-2024 Bamboo flowsheet Leroy Iverson PT Work Phone: [facility] Start: 07-28-2024 End: 07-28-2024 Bamboo flowsheet Leroy Iverson PT Work Phone: [facility] Start: 07-21-2024 End: 07-22-2024 ambulatory Sander Daniels PT [facility] Comment on above: Acute pain of left s houlder (Primary Dx); Scapular dyskinesis Start: 07-21-2024 End: 07-21-2024 Bamboo flowsheet Sander Daniels PT [facility] Start: 07-21-2024 End: 07-21-2024 Bamboo flowsheet Sander Daniels PT [facility] Start: 07-17-2024 End: 07-17-2024 ambulatory Natikaycee Kimbley INSTRUCTIONAL DESIGN SPECIALIST [facility] Comment on above: Acute pain of left s houlder (Primary Dx); Scapular dyskinesis Start: 07-17-2024 End: 07-17-2024 Bamboo flowsheet Nati Kelbley INSTRUCTIONAL DESIGN SPECIALIST [facility] Start: 07-17-2024 End: 07-17-2024 Bamboo flowsheet Nati Kelbley INSTRUCTIONAL DESIGN SPECIALIST [facility] Start: 07-14-2024 End: 07-15-2024 ambulatory Sander Daniels PT [facility] Comment on above: Acute pain of left s houlder (Primary Dx); Scapular dyskinesis Start: 07-14-2024 End: 07-14-2024 Bamboo flowsheet Sander Daniels PT [facility] Start: 07-14-2024 End: 07-14-2024 Bamboo flowsheet Sander Daniels PT [facility] Start: 07-02-2024 End: 07-02-2024 Bamboo flowsheet John Ceja PA Work Phone: [facility] Start: 07-02-2024 End: 07-02-2024 Bamboo flowsheet John Ceja PA Work Phone: [facility] Start: 07-02-2024 End: 07-02-2024 Office outpatient new 45 minutes John COLLINS Work Phone: [facility] Comment on above: Acute pain of left s houlder (Primary Dx); Scapular dyskinesis; Chronic myofascial pain Start: 07-02-2024 End: 07-02-2024 ambulatory JOHN CEJA Not Available Start: 03-29-2024 End: 03-29-2024 Clinisync Result Encounter Khadra Kitty DO Work Phone: [facility] Unsolicited Start: 03-29-2024 End: 03-29-2024 Clinisync Result Encounter Khadra Kitty DO Work Phone: [facility] Unsolicited Start: 03-25-2024 End: 03-25-2024 Bamboo flowsheet Khadra Kitty DO Work Phone: [facility] Start: 03-25-2024 End: 04-03-2024 Bamboo flowsheet Khadra Kitty DO Work Phone: [facility] Start: 03-25-2024 End: 04-03-2024 Clinisync Result Encounter Khadra Kitty DO Work Phone: [facility] Unsolicited Start: 03-25-2024 End: 03-25-2024 Patient encounter procedure Khadra Kitty DO Work Phone: [facility] Work Phone: Start: 03-25-2024 End: 03-25-2024 Periodic preventive med est patient 18-39 yrs Khadra Kitty DO Work Phone: [facility] Comment on above: Well woman exam with routine gynecological exam; Fatigue, unspecified type Start: 03-25-2024 End: 03-25-2024 ambulatory KHADRA TANG Not Available Start: 03-24-2024 End: 03-24-2024 Orders Only Kathrin Mansfield DPM Work Phone: [facility] Comment on above: Onychomycosis (Prima ry Dx) Start: 03-19-2024 End: 03-19-2024 Bamboo flowsheet Kathrin Mansfield DPM Work Phone: [facility] Start: 03-19-2024 End: 03-19-2024 Bamboo flowsheet Kathrin Mansfield DPM Work Phone: [facility] Start: 03-19-2024 End: 03-19-2024 Office outpatient new 45 minutes Kathrin Mansfield DPM Work Phone: [facility] Comment on above: Onychomycosis (Prima ry Dx); Tinea pedis of right foot; Lichen planus; Right foot pain Start: 03-19-2024 End: 03-19-2024 ambulatory KATHRIN MANSFIELD Not Available Start: 10-08-2023 End: 10-08-2023 ambulatory KHADRA TANG Not Available Start: 03-15-2022 End: 03-15-[address] KHADRA TANG Facility: Procedures Date Procedure Procedure Detail Performing Clinician Start: 07-02-2024 Radex shoulder compl ete minimum 2 views John COLLINS Work Phone: Start: 03-29-2024 ALL CBC WITH AUTO DIFF Khadra Kitty DO Work Phone: Start: 03-25-2024 IGP,APTIMA HPV,AGE GDLN Khadra Kitty DO Work Phone: Start: 03-24-2024 AST AND ALT Kathrin Mansfield DPM Work Phone: Start: 05-20-2024 Cytp cerv/vag auto t hin layer prep mnl screen Khadra Tang DO Work Phone: Plan of Treatment Date Care Activity Detail Author Start: 09-23-2024 End: 09-23-2024 Patient encounter procedure 09/23/2024 9:45 AM EDT Office Visit [facility] [address] [place] [phone] Jr. Jennifer Brown, DO [address] [place] [address] [facility] Start: 08-26-2024 End: 08-26-2024 Patient encounter procedure 08/26/2024 8:15 AM EDT Office Visit [facility] [address] [place] [phone] Jr. Jennifer Brown, DO [address] [facility] [address] [place] [address] [facility] Start: 08-25-2024 End: 08-25-2024 ambulatory [facility] Comment on above: Arrived Start: 08-20-2024 End: 08-20-2024 ambulatory [facility] Comment on above: Acute pain of left s houlder (Primary Dx); Scapular dyskinesis Start: 08-14-2024 End: 08-14-2024 ambulatory [facility] Comment on above: Arrived Start: 08-12-2024 End: 08-12-2024 ambulatory 08/12/2024 5:00 PM EDT Treatment [facility] [address] [place] [address] Leroy Iverson, PT [address] [place] [address] [facility] Start: 08-06-2024 End: 08-06-2024 ambulatory 08/06/2024 4:00 PM EDT Treatment [facility] [address] [place] [address] Jameel Theodore PTA [facility] Start: 08-04-2024 End: 08-04-2024 ambulatory 08/04/2024 4:30 PM EDT Treatment [facility] [address] [place] [address] Leroy Iverson, PT [address] [place] [address] [facility] Start: 07-30-2024 End: 07-30-2025 MR Shoulder - left WO contrast MR shoulder left wo IV contrast Imaging Routine Internal derangement of left shoulder Expected: 07/30/2024 (Approximate), Expires: 07/30/2025 [facility] Comment on above: Expected: 07/30/2024 (Approximate), Expires: 07/30/2025 Start: 07-30-2024 End: 07-30-2025 XR Thoracic spine 2 Views XR thoracic spine 2 views Imaging Routine Acute left-sided thoracic back pain Expected: 07/30/2024 (Approximate), Expires: 07/30/2025 [facility] Work Phone: Comment on above: Expected: 07/30/2024 (Approximate), Expires: 07/30/2025 Start: 07-30-2024 End: 07-30-2024 Patient encounter procedure [facility] Comment on above: Acute pain of left s houlder (Primary Dx) Start: 07-28-2024 End: 07-28-2024 ambulatory [facility] Comment on above: Arrived Start: 07-23-2024 End: 07-23-2024 Patient encounter procedure 07/23/2024 2:00 PM EST Office Visit [facility] [address] [place] [phone] Kathrin Mansfield, DPM [address] [place], [place] [id number] [facility] Start: 07-21-2024 End: 07-21-2024 ambulatory 07/21/2024 4:30 PM EST Treatment [facility] [address] [facility] [address] [place] [address] Sander Daniels, PT [facility] Start: 07-17-2024 End: 07-17-2024 ambulatory 07/17/2024 4:00 PM EST Treatment [facility] [address] [place] [address] Nati Eden, INSTRUCTIONAL DESIGN SPECIALIST [facility] Start: 07-14-2024 End: 07-14-2024 ambulatory 07/14/2024 4:00 PM EST Evaluation [facility] [address] [facility] [address] [place] [address] Sander Daniels, PT Acute pain of left shoulder; Scapular dyskinesis [facility] Comment on above: Acute pain of left s houlder; Scapular dyskinesis Start: 07-02-2024 End: 07-02-2024 Patient encounter procedure 07/02/2024 1:30 PM EST Office Visit [facility] [address] [phone] John Ceja, PA [address] [facility] [address] [place] [address] Acute pain of left shoulder (Primary Dx) [facility] Comment on above: Acute pain of left s houlder (Primary Dx) Start: 03-25-2024 End: 03-25-2025 Lipid 1996 panel - Serum or Plasma Lipid panel Lab Routine Fatigue, unspecified type Expected: 03/25/2024 (Approximate), Expires: 03/25/2025 [facility] Comment on above: Expected: 03/25/2024 (Approximate), Expires: 03/25/2025 Start: 03-25-2024 End: 03-25-2024 Patient encounter procedure [facility] Comment on above: Arrived Start: 03-19-2024 End: 03-19-2025 Alanine aminotransferase [Enzymatic activity/volume] in Serum or Plasma ALT Lab Routine Onychomycosis Expected: 03/19/2024 (Approximate), Expires: 03/19/2025 [facility] Work Phone: Comment on above: Expected: 03/19/2024 (Approximate), Expires: 03/19/2025 Start: 03-19-2024 End: 03-19-2025 Aspartate aminotransferase [Enzymatic activity/volume] in Serum or Plasma AST Lab Routine Onychomycosis Expected: 03/19/2024 (Approximate), Expires: 03/19/2025 [facility] Comment on above: Expected: 03/19/2024 (Approximate), Expires: 03/19/2025 Start: 03-19-2024 End: 03-19-2024 Patient encounter procedure 03/19/2024 1:30 PM EDT Office Visit [facility] [address] [place] [phone] Kathrin Mansfield, DPM [address] [place] [address] Arrived [facility] Comment on above: Arrived CBC W Auto Different ial panel - Blood CBC and differential Lab Routine Fatigue, unspecified type Ordered: 03/25/2024 [facility] Comment on above: Ordered: 03/25/2024 Comprehensive metabo lic 2000 panel - Serum or Plasma Comprehensive metabolic panel Lab Routine Fatigue, unspecified type Ordered: 03/25/2024 [facility] Comment on above: Ordered: 03/25/2024 Cytology Cervical or vaginal smear or scraping study Pap Smear Pathology and Cytology Routine Well woman exam with routine gynecological exam Ordered: 03/25/2024 [facility] Work Phone: Comment on above: Ordered: 03/25/2024 Hemoglobin A1c/Hemoglobin.total in Blood Hemoglobin A1c Lab Routine Fatigue, unspecified type Ordered: 03/25/2024 [facility] Comment on above: Ordered: 03/25/2024 Human papilloma viru s DNA [Presence] in Unspecified specimen by Probe with amplification HPV DNA probe, amplified Microbiology Routine Well woman exam with routine gynecological exam Ordered: 03/25/2024 [facility] Comment on above: Ordered: 03/25/2024 Thyrotropin [Units/volume] in Serum or Plasma TSH Lab Routine Fatigue, unspecified type Ordered: 03/25/2024 [facility] Work Phone: Comment on above: Ordered: 03/25/2024 Immunizations Immunization Date Immunization Notes Care Provider Alexander mohitjose 01-19-1999 measles, mumps and rubella virus vaccine Kathrin Rusher DPM Work Phone: [facility] 01-08-1992 diphtheria, tetanus toxoids and pertussis vaccine Kathrin Rusher DPM Work Phone: [facility] 01-07-1991 diphtheria, tetanus toxoids and pertussis vaccine Kathrin Rusher DPM Work Phone: [facility] 01-07-1991 trivalent poliovirus vaccine, live, oral Kathrin Rusher DPM Work Phone: [facility] 12-31-1989 diphtheria, tetanus toxoids and pertussis vaccine Kathrin Rusher DPM Work Phone: [facility] 05-18-1988 haemophilus influenz ae type b vaccine, conjugate unspecified formulation Kathrin Rusher DPM Work Phone: [facility] 03-15-1988 diphtheria, tetanus toxoids and pertussis vaccine Kathrin Rusher DPM Work Phone: [facility] 03-15-1988 trivalent poliovirus vaccine, live, oral Kathrin Rusher DPM Work Phone: [facility] 02-03-1988 diphtheria, tetanus toxoids and pertussis vaccine Kathrin Rusher DPM Work Phone: [facility] 02-03-1988 trivalent poliovirus vaccine, live, oral Kathrin Rusher DPM Work Phone: [facility] 1986 measles, mumps and rubella virus vaccine Kathrin Rusher DPM Work Phone: [facility] 1986 trivalent poliovirus vaccine, live, oral Kathrin Rusher DPM Work Phone: [facility] Payers Date Payer Category Payer Medicaid [facility] [id number] 2022 Medicaid [id number] 1986 Unknown [id number] [id number] 1986 Unknown [id number] 2.16.840.1.261437.3.579.2.1258 1986 Unknown [id number] 2.16.840.1.510691.3.579.2.1258 1986 Unknown [id number] 2.16.840.1.093376.3.579.2.1258 1986 Unknown [id number] 2.16.840.1.051408.3.579.2.1258 1986 Unknown [id number] 2.16.840.1.961250.3.579.2.1258 1986 Unknown [id number] 2.16.840.1.416661.3.579.2.1258 1986 Unknown [id number] 2.16.840.1.927930.3.579.2.1258 1986 Unknown [id number] 2.16.840.1.194809.3.579.2.1258 1986 Unknown [id number] 2.16.840.1.704222.3.579.2.1258 1986 Unknown [id number] 2.16.840.1.302695.3.579.2.1258 1986 Unknown [id number] 2.16.840.1.447084.3.579.2.1258 1986 Unknown [id number] 2.16.840.1.481262.3.579.2.1259 1986 Unknown [id number] 2.16.840.1.220870.3.579.2.1259 1986 Unknown [id number] 2.16.840.1.821760.3.579.2.1259 1986 Unknown [id number] 2.16.840.1.989168.3.579.2.9 1986 Unknown [id number] 2.16.840.1.474594.3.579.2.1259 1986 Unknown [id number] 2.16.840.1.254567.3.579.2.9 1986 Unknown [id number] 2.16.840.1.165502.3.579.2.1286 1986 Unknown [id number] 2.16.840.1.686537.3.579.2.1285 1986 Unknown [id number] 2.16.840.1.965594.3.579.2.1286 1986 Unknown [id number] 2.16.840.1.044164.3.579.2.1286 1986 Unknown [id number] 2.16.840.1.666642.3.579.2.1286 1959 Unknown [id number] Social History Date Type Detail Facility Start: 03-05-2023 End: 03-19-2024 Tobacco smoking status [facility] Smokes tobacco daily [facility] History of tobacco use Cigarette Smoker [facility] Start: 10-08-2023 End: 08-26-2024 Alcoholic beverage intake Current drinker of alcohol (finding) [facility] Start: 03-05-2023 End: 08-26-2024 History of Social function [facility] Start: 03-05-2023 End: 08-26-2024 Tobacco use panel [facility] Start: 03-05-2023 Tobacco Comment Patient starte d smoking 20 years ago (noted 03/15/22).Smokes 11-20 cigarettes/day after 31-60 minutes of waking up. [facility] Start: 03-05-2023 Alcohol Comment 3 or 4 drinks on a typical day / 2 to 4 times a month. [facility] Start: 1985 Sex assigned at Female N [facility] Start: 03-14-2023 Gender identity Identifies as female gender (finding) [facility] Start: 03-14-2023 Sexual orientation Heterosexual (fin ding) [facility] Clinical Notes 03-19-2024 to 08-28-2024 Telephone Encounter - Sandra Jennings - 08/28/2024 2:55 PM EDTTelephone Encounter - [facility] - 08/28/2024 2:55 PM EDTJr. Jennifer Brown, DO - 08/26/2024 8:15 AM EDT Note Date & Type Note Facility 08-28-2024 Telephone encount er Note Carly seen Dr. Brown 08/26 he referred her to Pain Management Dr. Herrera, but, before they will see her they want her to have a Thor MRI and she couldn't get in to have that done until the , she cancelled her next appt with Dr Brown that was scheduled for the . But once she gets the MRI done then she will see Pain Management, and then will call back and reschedule with Dr. Brown to set up his appt. [facility] 08-28-2024 Miscellaneous Notes Formattin g of this note might be different from the original. Carly seen Dr. Brown 08/26 he referred her to Pain Management Dr. Herrera, but, before they will see her they want her to have a Thor MRI and she couldn't get in to have that done until the , she cancelled her next appt with Dr Brown that was scheduled for the . But once she gets the MRI done then she will see Pain Management, and then will call back and reschedule with Dr. Brown to set up his appt. documented in this encounter [facility] 08-26-2024 History of Presen t illness Narrative Images from the original note were not included. EveryHISTORY OF PRESENT ILLNESS: EST PT Carly Ventura is an 39 y.o. @ female. (EST PT WITH [facility]) RECHECK LT SHOULDER PAIN - HERE FOR RESULTS; XRAY T-SPINE AND MRI LT SHOULDER DONE 08/22/24 @ [facility] - [facility] ALSO REFERRED PT TO PAIN MANAGEMENT ; 1ST APPT IS TOMORROW (08/27/24) - FINISHED PT [facility] [place]; TRIED DRY NEEDLING; DENIES RELIEF - S/P CELEBREX; DISCONTINUED DUE TO HEART PALPITATIONS MRI LT SHOULDER 08/22/24 [facility] 08/22/24 [facility] ([facility] SHOULDER 07/02/24 IN [facility] XRAY EXA 04/09/19 DEPO INJECTION 04/09/19 - NO RELIEF P.T [facility] (#4 VISITS) PAIN MANAGEMENT [facility]; 1ST VISIT WILL BE 08/27/24 NOTES SOME LATERAL SHOULDER AFTER PHYSICAL THERAPY-PAIN CONTINUES BETWEEN LT SCAPULA AND SPINE- DENIES RADIATING PAIN- DENIES N/T- PAIN IS CONSTANT- INCREASE PAIN WITH SNEEZING/YAWNING/COUGHING-NOTES SOME LIMITATIONS WITH SHOULDER ROM- +TYLENOL/IBUPROFEN - +WAKES HS RT HANDED ALLERGIES: Allergies Allergen Reactions Codeine Unknown Prednisone Other Wound Dressing Adhesive Rash Band-aids HOME MEDICATIONS: Current Outpatient Medications Medication Instructions celecoxib (CELEBREX) 200 mg, Oral, Daily PHYSICAL EXAM: Shoulder Musculoskeletal Exam Inspection Left Left shoulder inspection is normal. Ecchymosis: none Peripheral edema: none Atrophy: none Masses: none Palpation Left Crepitus: no crepitus Increased warmth: none Tenderness: present Anterior shoulder: none Posterior shoulder: moderate Clavicle: none AC joint: mild Rotator cuff: mild Trapezius: moderate Medial scapula: severe Superior pole of scapula: severe Inferior pole of scapula: none Bicipital groove: none Proximal biceps: none Distal biceps: none Lateral arm: mild Elbow: none Palpation additional comments: + pain left parathoracic soft tissues/ + pain medial scapular border left Neg MARCELL TEST, No winging noted. Range of Motion Right Right shoulder active abduction: + pain passing 90 degrees. Left Left shoulder range of motion is normal. Active ROM: pain. Passive ROM: pain. Active forward elevation: 160. Passive forward elevation: 180. Shoulder active abduction: 160. Passive abduction: 160. Active external rotation at side: 80. Passive external rotation at side: 80. Internal rotation: L5 and L2. Strength Left External rotation: 5/5. External rotation is affected by pain. Internal rotation: 5/5. Internal rotation is affected by pain. Abduction: 5/5. Biceps: 5/5. Triceps: 5/5. Neurovascular Left Radial pulse: normal and 2+ Capillary refill: <3 sec Axillary nerve sensory distribution: normal Scapula Left Left shoulder scapula is normal. Position: normal Dyskinesia: positive Winging: lateral Special Tests Left Rotator Cuff Signs Pham test: positive Painful arc test: positive Biceps/jaun Signs Speed's test: negative General Constitutional: appears stated age Neurological: alert and oriented x3 Vitals: There is no height or weight on file to calculate BMI. Tobacco Use: High Risk (07/30/2024) Patient History Smoking Tobacco Use: Every Day Smokeless Tobacco Use: Unknown Passive Exposure: Not on file Alcohol Use: Not on file IMAGING: Procedures No orders of the defined types were placed in this encounter. ASSESSMENT: No diagnosis found. PLAN: We have discussed her case with her at length including stretching her home exercise program and restrictions. She has an appointment with pain management tomorrow. We will see her back in 1 month. If her symptoms persist or worsen, we would probably recommend an MRI of her thoracic spine. She has not responded to physical therapy sessions. Pain is along the medial border of her left scapula. There was no gross evidence of winging. Questions answered in laymen terms at the bedside. The diagnosis, home exercise plan and any ongoing restrictions/ recommendations reviewed. If unable to be reached in office, I recommend evaluation at nearest Emergency Room if any symptoms worsened or new symptoms develop for requiring urgent evaluation. documented in this encounter [facility] 08-25-2024 History of Presen t illness Narrative Images from the original note were not included. Physical Therapy Treatment Visit Patient Name: Carly Ventura Today's Date: 08/25/24 Encounter Diagnoses Name Primary? Acute pain of left shoulder Yes Scapular dyskinesis Visit number: 10 Timed Code Treatment : 30 minutes Total Treatment Time: 30 minutes Time In: 1622 Time Out: 1700 History: Pt states left shoulder has been gradually worsening over the last 3 months. Pt states she has been noticing popping and tightness in shoulder but now having significant pain. States can barely buckle seat belt with left UE. Some pain in anterior shoulder but greatest most posterior and near shoulder blade. Pt states she has had multiple cortisone injections; however, never really noticed relief. Last injection was about 10 years ago. Precautions: Wendell Subjective: Pt. Reports of no change in her left scapular pain. Pt reports that there is improvement in pain and less frequency of shooting pain. Pain: 5/10 w/o activity, gets to a shooting pain. Objective: PT Evaluation (07/14/2024) LEFT SHOULDER AROM: 108 degrees flexion, 106 degrees abduction, 65 degrees ER, IR to mid lumbar region PROM: 132 degrees flexion, 114 degrees abduction, full ER Joint mobility: limited thoracic mobility mid to lower thoracic regions Strength: shoulder extension 4-/5 due to pain, middle trap 3/5 due to pain, lower trap 3-/5 due to pain Palpation: Moderate to severe tenderness left mid to lower thoracic region and Special Test: pain with lift off testing, pain with Neers at 54 degrees elevation Treatment: Manual Therapy: (12 minutes) Delivered manual while in prone to thoracic region. STM/TPR to upper trap , levator, and rhomboids. Thoracic PA mobs, grade II to T1- T10, one cavitation at T3-T5 level. Rotational mobs on R side due to L side discomfort. Supine cervical Passive ROM and stretches to improve ROM. Hypertonic of cervical region limited ROM. Therapeutic Exercise: (18 minutes supervised) guided pt through ther and flex ex per grid to improve postural cervical muscle strength, awareness and mobility Therapeutic Activity: Exercises to improve dynamic activities, functional tasks, functional mobility to return to prior activity level as needed. Neuromuscular re-education: ( minutes supervised) Movements performed to improve muscular facilitation of scap stabilizers and postural awareness. Moderate cues needed to improve scapular movement and coordination Balance Training, Muscle Facilitation, Dynamic Stability, Core Stabilization, and Blood Flow Restriction Training (BFRT) as needed. Modalities: ( minutes) Post session pt seated IFC/MHP to thoracic area to reduce muscle tone and soreness Assessment: Pt has completed 9 PT sessions for left shoulder and scapular pain. Focused on postural and scapular/shoulder strength to reduce reliance on rhomboid regions. Moderate cues needed to improve scapular movement and coordination. Less TTP to UT muscle today. MRI is scheduled for 08/22/24 Pain management scheduled for next week. No progress with PT treatment recommend discharge. Outcome Measure: Upper Extremity Functional Index (UEFI): 40/80 Rehab Diagnosis: left shoulder pain and weakness Short Term Goal: To be met in 2 weeks Goal 1: Pt to be instructed in home exercise program. 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 Goal 2: Pt to achieve 140 degrees of left shoulder flexion to assist with overhead reaching. Goal 3: Pt to achieve 120 degrees of left shoulder abduction to assist with grooming hair. Goal 4: Pt to achieve 4+ to 5/5 strength left shoulder in all planes to assist with functional tasks and lifting. Goal 5: Pt to score no less than 60/80 on UEFI indicating improved QOL. PLAN: Pt. Will be discharged from PT due to no progress toward PT goals. I hereby deem this POC medically necessary. Please sign below. Date: documented in this encounter [facility] 08-14-2024 History of Presen t illness Narrative Images from the original note were not included. Physical Therapy Treatment Visit Patient Name: Carly Ventura Today's Date: 08/14/24 Encounter Diagnoses Name Primary? Acute pain of left shoulder Yes Scapular dyskinesis Visit number: 8 Timed Code Treatment : 25 minutes Total Treatment Time: 33 minutes Time In: 1600 Time Out: 1633 History: Pt states left shoulder has been gradually worsening over the last 3 months. Pt states she has been noticing popping and tightness in shoulder but now having significant pain. States can barely buckle seat belt with left UE. Some pain in anterior shoulder but greatest most posterior and near shoulder blade. Pt states she has had multiple cortisone injections; however, never really noticed relief. Last injection was about 10 years ago. Precautions: Wendell Subjective: Pt. Reports of no change in her left scapular pain. No progress. Pain: 10 Objective: PT Evaluation (07/14/2024) LEFT SHOULDER AROM: 108 degrees flexion, 106 degrees abduction, 65 degrees ER, IR to mid lumbar region PROM: 132 degrees flexion, 114 degrees abduction, full ER Joint mobility: limited thoracic mobility mid to lower thoracic regions Strength: shoulder extension 4-/5 due to pain, middle trap 3/5 due to pain, lower trap 3-/5 due to pain Palpation: Moderate to severe tenderness left mid to lower thoracic region and Special Test: pain with lift off testing, pain with Neers at 54 degrees elevation Treatment: Manual Therapy: (15 minutes) Delivered manual while in prone to thoracic region. STM/TPR to upper trap , levator, and rhomboids. Thoracic PA mobs, grade II to T1- T10, one cavitation at T3-T5 level. Rotational mobs on R side due to L side discomfort. Therapeutic Exercise: (15 minutes supervised) guided pt through ther and flex ex per grid to improve postural cervical muscle strength, awareness and mobility Therapeutic Activity: Exercises to improve dynamic activities, functional tasks, functional mobility to return to prior activity level as needed. Neuromuscular re-education: ( minutes supervised) Movements performed to improve muscular facilitation of scap stabilizers and postural awareness. Moderate cues needed to improve scapular movement and coordination Balance Training, Muscle Facilitation, Dynamic Stability, Core Stabilization, and Blood Flow Restriction Training (BFRT) as needed. Modalities: ( minutes) Post session pt seated IFC/MHP to thoracic area to reduce muscle tone and soreness Assessment: Pt has completed 8 PT sessions for left shoulder and scapular pain. Focused on postural and scapular/shoulder strength to reduce reliance on rhomboid regions. Moderate cues needed to improve scapular movement and coordination. Pain with shoulder flex above 150 degrees. No progress toward PT goals. Less TTP to UT muscle today. Cervical spine tightness still present. Outcome Measure: Upper Extremity Functional Index (UEFI): 40/80 Rehab Diagnosis: left shoulder pain and weakness Short Term Goal: To be met in 2 weeks Goal 1: Pt to be instructed in home exercise program. [facility] Goals: To be met in 10 weeks Goal 1: Pt to report independence and compliance with home program. Goal 2: Pt to achieve 140 degrees of left shoulder flexion to assist with overhead reaching. Goal 3: Pt to achieve 120 degrees of left shoulder abduction to assist with grooming hair. Goal 4: Pt to achieve 4+ to 5/5 strength left shoulder in all planes to assist with functional tasks and lifting. Goal 5: Pt to score no less than 60/80 on UEFI indicating improved QOL. Pt will benefit from skilled PT for 2x/week from 07/14/2024 to 09/22/2024 to address the above impairments. I hereby deem this POC medically necessary. Please sign below. Date: documented in this encounter [facility] 07-30-2024 History of Presen t illness Narrative Images from the original note were not included. HISTORY OF PRESENT ILLNESS: EST PT Carly Ventura is an 39 y.o. @ female. (EST PT) RECHECK LT SHOULDER PAIN - S/P CELEBREX, TOPICAL CAPSAICIN CREAM, AND P.T AT [facility] (#4 VISITS) XRAY (L) SHOULDER 07/02/24 IN EPIC XRAY EXA 04/09/19 DEPO INJECTION 04/09/19 - NO RELIEF P.T [facility] (#4 VISITS) MINIMAL IMPROVEMENT WITH CELEBREX. +TYL PRN. NOT MUCH DIFFERENCE FROM THERAPY. PAIN CONTINUES NEAR SCAPULA AND SPINE. OCCAS RADIATES TO RIBS. DENIES TOPICALS. MINIMAL NUMBNESS IN LT HAND AT HS. WEAKNESS. PAIN IS WORSE WITH MOVEMENTS. WAKES AT HS. RT HANDED. ALLERGIES: Allergies Allergen Reactions Codeine Unknown Prednisone Other Wound Dressing Adhesive Rash Band-aids HOME MEDICATIONS: Current Outpatient Medications Medication Instructions celecoxib (CELEBREX) 200 mg, Oral, Daily PHYSICAL EXAM: Shoulder Musculoskeletal Exam Inspection Left Left shoulder inspection is normal. Ecchymosis: none Peripheral edema: none Atrophy: none Masses: none Palpation Left Crepitus: no crepitus Increased warmth: none Tenderness: present Anterior shoulder: none Posterior shoulder: moderate Clavicle: none AC joint: mild Rotator cuff: mild Trapezius: moderate Medial scapula: severe Superior pole of scapula: severe Inferior pole of scapula: none Bicipital groove: none Proximal biceps: none Distal biceps: none Lateral arm: mild Elbow: none Palpation additional comments: + pain left parathoracic soft tissues/ + pain medial scapular border Neg MARCELL TEST Range of Motion Right Right shoulder active abduction: + pain passing 90 degrees. Left Left shoulder range of motion is normal. Active ROM: pain. Passive ROM: pain. Active forward elevation: 160. Passive forward elevation: 180. Shoulder active abduction: 160. Passive abduction: 160. Active external rotation at side: 80. Passive external rotation at side: 80. Internal rotation: L5 and L2. Strength Left External rotation: 5/5. External rotation is affected by pain. Internal rotation: 5/5. Internal rotation is affected by pain. Abduction: 5/5. Biceps: 5/5. Triceps: 5/5. Neurovascular Left Radial pulse: normal and 2+ Capillary refill: <3 sec Axillary nerve sensory distribution: normal Scapula Left Left shoulder scapula is normal. Position: normal Dyskinesia: positive Winging: lateral Special Tests Left Rotator Cuff Signs Pham test: positive Painful arc test: positive Biceps/jaun Signs Speed's test: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
[2024-10-04 09:10] LABS: Basophils Percent Auto 0.4 % (0.2-2.0); Eosinophils Absolute Auto 0.1 10^3/uL (0.0-0.7); Eosinophils Percent Auto 1.1 % (0.9-7.0); Hemoglobin 14.2 g/dL (12.0-16.0); Immature Granulocytes Abs Auto 0.04 10^3/uL (0.00-0.03); Immature Granulocytes Pct Auto 0.4 % (0.0-0.5); Lymphocytes Absolute Auto 2.3 10^3/uL (1.2-3.8); Lymphocytes Percent Auto 24.2 % (20.5-60.0); Mean Corpuscular Hemoglobin 30.9 pg (26.7-34.0); Mean Corpuscular Volume 93.5 fL (81.0-99.0); Mean Platelet Volume 9.7 fL (9.5-13.5); Monocytes Absolute Auto 0.7 10^3/uL (0.3-0.8); Monocytes Percent Auto 7.9 % (1.7-12.0); Neutrophils Absolute Auto 6.2 10^3/uL (1.4-6.5); Platelet Count 251 10^3/uL (150-450); Red Cell Distribution Width 15.2 % (11.0-15.0); White Blood Count 9.4 10^3/uL (4.0-11.0)
[2024-10-04 09:27] LABS: Estimated Average Glucose 120 mg/dL; Glycohemoglobin A1C 5.8 % (4.5-6.2)
[2024-10-04 09:47] LABS: Alanine Aminotransferase 19 U/L (14-59); Albumin Globulin Ratio 0.9; Albumin Level 3.4 g/dL (3.4-5.0); Alkaline Phosphatase 102 U/L (46-116); Anion Gap 8.5; Aspartate Amino Transferase 15 U/L (15-37); BUN Creatinine Ratio 14.3; Bilirubin Total 0.5 mg/dL (0.2-1.0); Calcium 9.1 mg/dL (8.5-10.1); Carbon Dioxide 30.6 mmol/L (21.0-32.0); Chloride 104 mmol/L (98-107); Chol HDL Ratio 4.6; Cholesterol 239 mg/dL (<=200); Estimated GFR (African America >60 (>=60 mL/min/1.73m^2); Estimated GFR (Non-African Ame >60 (>=60 mL/min/1.73m^2); Free T3 2.62 pg/mL (2.18-3.98); Glucose 117 mg/dL (74-106); HDL Cholesterol 52 mg/dL (40-60); Potassium 4.1 mmol/L (3.5-5.1); Sodium 139 mmol/L (136-145); Thyroid Stimulating Hormone 1.334 uIU/mL (0.358-3.740); Total Protein 7.4 g/dL (6.4-8.2); Triglycerides 129 mg/dL (<=150); VLDL CHOLESTEROL 25.8 mg/dL
== END 2024-10-04 08:51 | disposition home or self-care (01) ==
PROVIDERS: PCP Family Medicine; Visit Provider Family Medicine
DX: I10 Essential (primary) hypertension (principal)
CPT/HCPCS: 36415; 80053; 80061; 83036; 84436; 84443; 84481; 85025

== ENCOUNTER 2025-01-24 12:30 | Outpatient (OUT) | payer BC, SELFPAY ==
--- OUTSIDE RECORDS SUMMARY | 2024-09-04 09:37 | XMS_ITS ---
Author Organization [facility] [place] Address [address] [place] [address] Care Team Providers Care Warehouse Loader Name Role Phone Denis Bishop Primary Care Provider [phone] REASON FOR VISIT BP Check Medications Medication SIG (Take, Route, Frequency, Duration) Notes Start Date End Date Status Coreg 12.5 MG 1 tablet with food O rally Twice a day for 30 days 09/01/2024 Active hydroCHLOROthiazide 25 MG 1 tablet in th e morning Orally Once a day for 30 days 09/04/2024 Active Encounters Encounter Location Date Provider Diagnosis [facility] [address] [place] [address] 09/04/2024 Denis Bishop Hypertension I10 Assessments Encounter Date Diagnosis (ICD Code) Assessment Notes Treatment Notes Treatment Clinical Notes Section Notes 09/04/2024 Hypertension (ICD-10 - I10) Plan Of Treatment Medication Medication Name Sig Start Date Stop Date Notes Coreg 12.5 MG 1 tablet with food O rally Twice a day for 30 days 09/01/2024 hydroCHLOROthiazide 25 MG 1 tablet in th e morning Orally Once a day for 30 days 09/04/2024 Progress Notes * Carly VENTURADOB:1985 (39 yo F)Acc No.[id number]:09/04/2024 Patient: Martine MIRANDAary :1985 A ge:39 Y S ex:Female Address:[address] [place] [address] [address], [place], [address] * Refills Refill Coreg Tablet, 12.5 MG, Orally, 60, 1 tablet with food, Twice a day, 30 days Start hydroCHLOROthiazide Tablet, 25 MG, Orally, 30, 1 tablet in the morning, Once a day, 30 days * true * Date: Generated for Ashlee seals/Yan/Anaitting on: 0 01/24/2025 12:36 PM EDT
--- OUTSIDE RECORDS SUMMARY | 2024-09-04 09:45 | XMS_ITS ---
Author Organization [facility] in [place] Address [address] [place] [address] Care Team Providers Care Reclamation Furnace Operator Name Role Phone Denis Bishop Primary Care Provider [phone] REASON FOR VISIT bp check Vital Signs Height 69 in 09/04/2024 Blood pressure systolic 188 mm Hg 09/05/19 25 Blood pressure diastolic 110 mm Hg 025 Encounters Encounter Location Date Provider Diagnosis [facility] [address] [place] [address] 09/04/2024 Denis Bishop Hypertension I10 Assessments Encounter Date Diagnosis (ICD Code) Assessment Notes Treatment Notes Treatment Clinical Notes Section Notes 09/04/2024 Hypertension (ICD-10 - I10) Plan Of Treatment No Information Progress Notes * MARY CARMEN CarlyDOB:1985 (39 yo F)Acc No.[id number]:09/04/2024 BP Check Patient: Carly MIRANDA Provider: Dale Bishop ([facility])MD :1985 A ge:39 Y S ex:Female Date:09/04/2024 Address:[address] [place] [address] [address], [id number] Check In:01:33 PM ESTCheck O ut:01:37 PM EST Subjective: * Chief Complaints: * 1 . Bp check. * Active Problem List I10 Hypertension Modified On:09/01/2024W/U Status:confirmed E78.5 Hyperlipidemia Modified On:10/06/2024W/U Status:confirmed * Medical History: Objective: * Vitals: H t: 69 in, BP:188/110mm Hg, Ht-cm: 175.26 cm. Assessment: * Assessment: 1. H ypertension - I10 (Primary) Plan: * Treatment: * * Sign off status: Completed Visit Status: C SKYLER (Check Out) true * Provider: Dale Bishop ([facility])MD Date: 0 09/04/2024 Generated for Ashlee seals/Yan/Anaitting on: 0 01/24/2025 12:36 PM EDT
--- OUTSIDE RECORDS SUMMARY | 2024-09-18 07:15 | XMS_ITS ---
Author Organization [facility] in [place] Address [address] [place] [address] Care Team Providers Care Epic Director Name Role Phone Denis Bishop Primary Care Provider [phone] REASON FOR VISIT BP CHECK Vital Signs Height 69 in 09/18/2024 Blood pressure systolic 170 mm Hg 09/19/19 25 Blood pressure diastolic 104 mm Hg 025 Encounters Encounter Location Date Provider Diagnosis [facility] [address] [place] [address] 09/18/2024 Denis Bishop Plan Of Treatment No Information Progress Notes * Carly LENTZDOB:1985 (39 yo F)Acc No.[id number]:09/18/2024 BP Check Patient: Carly MIRANDA Provider: Dale Bishop ([facility])MD :1985 A ge:39 Y S ex:Female Date:09/18/2024 Address:[address] [place] [address] [address], [id number] Check In:11:17 AM ESTCheck O ut:11:26 AM EST Subjective: * Chief Complaints: * 1 . BP CHECK. * Active Problem List I10 Hypertension Modified On:09/01/2024W/U Status:confirmed E78.5 Hyperlipidemia Modified On:10/06/2024/U Status:confirmed * Medical History: Objective: * Vitals: H t: 69 in, BP:170/104mm Hg, Ht-cm: 175.26 cm. Assessment: Plan: * Treatment: * * Sign off status: Completed Visit Status: Lay HOLLAND (Check Out) true * Provider: Dale Bishop ([facility])MD Date: 0 09/18/2024 Generated for Ashlee seals/aYn/Anaitting on: 0 01/24/2025 12:35 PM EDT
--- OUTSIDE RECORDS SUMMARY | 2024-09-18 07:23 | XMS_ITS ---
Author Organization [facility] in [place] Address [address] [place] [address] Care Team Providers Care Property Disposal Officer Name Role Phone Denis Bishop Primary Care Provider [phone] REASON FOR VISIT b/p check- Medications Medication SIG (Take, Route, Frequency, Duration) Notes Start Date End Date Status Coreg 25 MG 1 tablet with food O rally Twice a day for 30 days 09/01/2024 Active Encounters Encounter Location Date Provider Diagnosis [facility] [address] [place] [address] 09/18/2024 Denis Bishop Hypertension I10 Assessments Encounter Date Diagnosis (ICD Code) Assessment Notes Treatment Notes Treatment Clinical Notes Section Notes 09/18/2024 Hypertension (ICD-10 - I10) Plan Of Treatment Medication Medication Name Sig Start Date Stop Date Notes Coreg 25 MG 1 tablet with food O rally Twice a day for 30 days 09/01/2024 Pending Test Test Name Order Date COMPREHENSIVE METABOLIC PROFILE WITH GFR 09/18/2024 CBC W/AUTO DIFF 09/18/2024 GLYCOHEMOGLOBIN A1C 09/18/2024 THYROID PANEL (T4/TSH/FREE T3) Lipid Panel 09/18/2024 Progress Notes * Carly VENTURADOB:1985 (39 yo F)Acc No.[id number]:09/18/2024 Patient: Martine MIRANDAary :1985 A ge:39 Y S ex:Female Address:[address] [place] [address], [place] [address] * Refills Refill Coreg Tablet, 25 MG, Orally, 60, 1 tablet with food, Twice a day, 30 days Subjective: * Chief Complaints: * B /p check- * Medical History: * Surgical History: * Hospitalization/Major Diagno stic Procedure: * Medications: Objective: * Vitals: * Physical Examination: Assessment: * Assessment: 1. H ypertension - I10 Plan: * Treatment: * Procedure Codes: * true * Date: Generated for Ashlee seals/Yan/eTnicksmitting on: 0 01/24/2025 12:36 PM EDT
--- OUTSIDE RECORDS SUMMARY | 2024-10-05 18:52 | XMS_ITS ---
Author Organization [facility] [place] Address [address] [place] [address] Care Team Providers Care Discharge Door Operator Name Role Phone Denis Bishop Primary Care Provider [phone] REASON FOR VISIT labs Problems Problem Type SNOMED Code ICD Code Onset Dates Problem Status W/U Status Risk Notes Problem Hyperlipidemia (86024777) Hyperlipidemia (E78.5) Active confirmed Encounters Encounter Location Date Provider Diagnosis [facility] [address] [place] [address] 10/05/2024 Denis Bishop Hyperlipidemia E78.5 Assessments Encounter Date Diagnosis (ICD Code) Assessment Notes Treatment Notes Treatment Clinical Notes Section Notes 10/05/2024 Hyperlipidemia (ICD-10 - E78.5) Plan Of Treatment Pending Test Test Name Order Date Lipid Panel 10/05/2024 Progress Notes * Carly VENTURADOB:1985 (39 yo F)Acc No.[id number]:10/05/2024 Patient: Carly MIRANDA :1985 A ge:39 Y S ex:Female Address:[address] [place] [address] [address], [place], [address] Subjective: * Chief Complaints: * L abs * Medical History: * Surgical History: * Hospitalization/Major Diagno stic Procedure: * Medications: Objective: * Vitals: * Physical Examination: Assessment: * Assessment: 1. H yperlipidemia - E78.5 (Primary) Plan: * Treatment: * Procedure Codes: * true * Date: Generated for Ashlee seals/Yan/Nikita on: 0 01/24/2025 12:36 PM EDT
--- OUTSIDE RECORDS SUMMARY | 2025-01-21 15:00 | XMS_ITS | Encounter Summary ---
Author Organization [facility] Address [address] [address] Care Team Providers Care Crepe Sole Scourer Name Role Phone Aris Bishop MD Primary Care Provider [phone] Reason for Visit * Reason Comments Menstrual Problem Encounter Details Date Type Department Care Team (Late st Contact Info) Description 01/21/2025 3:00 PM EDT Office [facility] [address] [place] [phone] Helder Tang DO [address] [facility] [place] [address] Amenorrhea (Primary Dx); Irregular periods/menstrual cycles Social History Tobacco Use Types Packs/Day Years Used Date Smoking Tobacco: Every Day Cigarettes Comments:Patient started smo mallika 20 years ago (noted 03/15/22). Smokes 11-20 cigarettes/day after 31-60 minutes of waking up. Alcohol Use Standard Drinks/Week Comments Yes 0 (1 standard drink = 0.6 oz pure alcohol) 3 or 4 drinks on a typical day / 2 to 4 times a month. Comments Unknown Sex and Gender Information Value Date Recorded Sex Assigned at Female 03/14/2023 9:47 AM EDT Legal Sex Female 8:28 PM EDT Gender Identity Female 03/14/2023 9:47 AM EDT Sexual Orientation Straight 03/14/2023 9: 47 AM EDT documented as of this encounter Last Filed Vital Signs Vital Sign Reading Time Taken Comments Blood Pressure 120/76 01/21/2025 3:27 PM EDT Pulse - - Temperature - - Respiratory Rate - - Oxygen Saturation - - Inhaled Oxygen Concentration - - Weight 88.5 kg (195 lb) 01/21/2025 3:27 PM EDT Height - - Body Mass Index 28.8 03/25/2024 2:24 PM EST documented in this encounter Plan of Treatment Upcoming Encounters Date Type Department Care Team ([facility] st Contact Info) Description 04/15/2025 2:00 PM EST Office Visit [facility] [address] [address] Helder Tang DO [address] [facility] [place] [address] Scheduled Orders Name Type Priority Associated Diagnoses Orde r Schedule POCT , urine manually resulted Point of Care Testing Routine Irregular periods/menstrual cycles Ordered: 01/21/2025 TSH Lab Routine Amenorrhea Ordered: 01/21/2025 CBC and differential Lab Routine Amenorrhea Ordered: 01/21/2025 Prolactin Lab Routine Amenorrhea Ordered: 01/21/2025 hCG, quantitative, Lab Routine Amenorrhea Ordered: 01/21/2025 Hemoglobin A1c Lab Routine Amenorrhea Ordered: 01/21/2025 US Pelvis w/ TV Imaging Routine Amenorrhea Expected: 01/21/2025, Expires: 01/21/2026 documented as of this encounter Visit Diagnoses Diagnosis Amenorrhea- Primary Absence of menstruation Irregular periods/menstrual cycles documented in this encounter Care Teams Crepe Sole Scourer Relationship Specialty Start Date End Date Aris Bishop MD [address] [place] [address] PCP - General Family Medicine 03/19/23 documented as of this encounter
--- NOTE | 2025-01-24 | US_ITS ---
The [address] [address] Patient Name: SUSAN LENTZ MRN: [id number] date: 1985 Sex: F Assigned Patient Location: US Current Patient Location: Accession/Order Number: [id number] Exam Date: 01/24/2025 13:58 Report Date: 01/24/2025 14:57 At the request of: KASHMIR RAMSEY Procedure: US pelvis w/ transvaginal Pelvic ultrasound. Reason for exam: Hematuria. Comparison: none Technique: Transabdominal imaging of the uterus and ovaries was performed. Transvaginal imaging of the uterus and ovaries was also obtained. Additional spectral Doppler analysis of the ovaries was also obtained. Findings: Uterus measures 6.9 x 3.1 x 3.3 cm. Endometrium measures 4.3 mm without focal abnormality. Fibroid involving the anterior fundus measuring 1.7 x 1.5 x 1.4 cm. Right ovary measures 2.3 x 1.9 x 2.0 cm. Left ovary measures 1.6 x 1.5 x 1.8 cm. Normal arterial and venous Doppler waveforms. No adnexal mass or cyst. US/US pelvis w/ transvaginal Impression: Fibroid uterus. Unremarkable endometrium and ovaries. Impression dictated by: Abhinav Grullon Jr., D.O. 01/24/2025 2:57 PM Dictation Location: [place] [address] Electronically authenticated by: [id number] Y Date: 01/24/2025 14:57
--- OUTSIDE RECORDS SUMMARY | 2025-01-24 12:36 | XMS_ITS | Encounter Summary ---
Author Organization [facility] Address [address] [place] [address] Care Team Providers Care Utility Sales And Service Manager Name Role Phone Aris Bishop MD Primary Care Provider [phone] Encounter Details Date Type Department Care Team (Late st Contact Info) Description 04/04/2024 Orders Only [facility] [address] [place] [address] Herlinda Saenz [place] [address] [place] [address] Social History Tobacco Use Types Packs/Day Years [...] AM EDT documented as of this encounter Plan of Treatment Upcoming Encounters Date Type Department Care Team (Late st Contact Info) Description 04/15/2025 2:00 PM EST Office Visit [facility] [address] [place] [address] Helder Tang DO [address] [place] [address] documented as of this encounter Procedures Procedure Name Priority Date/Time Associated Diagnosis Comments PAP SMEAR Routine 03/26/2024 12:00 AM EST documented in this encounter Results * Pap Smear (03/26/2024 12:00 AM EST) Swab Cervical swab / Unknown us Helder Tang DO LAB CYTOLOGY ORDERABLES Final Re sult EXTERNAL LAB documented in this encounter Visit Diagnoses Not on filedocumented in this encounter Care Teams Utility Sales And Service Manager Relationship Specialty Start Date End Date Aris Bishop MD [address] [place] [address] PCP - General Family Medicine 03/19/23 documented as of this encounter
--- OUTSIDE RECORDS SUMMARY | 2025-01-24 12:36 | XMS_ITS | Encounter Summary ---
Author Organization [facility] Address [address] [place] [address] Care Team Providers Care Vba Programmer Name Role Phone Aris Bishop MD Primary Care Provider [phone] Encounter Details Date Type Department Care Team (Late Contact Info) Description 01/21/2025 Bamboo flowsheet [facility] [address] [place] [address] Helder Tang DO [address] [place] [address] Dr [place], [facility] Social History Tobacco Use Types Packs/Day Years [...] Encounters Date Type Department Care Team (Late Contact Info) Description 04/15/2025 2:00 PM EST Office Visit [facility] [address] [place] [phone] Helder Tang, [address] [place], [place] [phone] documented as of this encounter Visit Diagnoses Not on filedocumented in this encounter Care Teams Vba Programmer Relationship Specialty Start Date End Date Aris Bishop MD [address] [facility] [place] [address] PCP - General Family Medicine 03/19/23 documented as of this encounter
--- OUTSIDE RECORDS SUMMARY | 2025-01-24 12:36 | XMS_ITS | Clinical Summary ---
Author Organization [facility] Address [address] [place] [address] [place] [address] Care Team Providers Care Cardiology Coordinator Name Role Phone Aris Bishop MD Primary Care Provider [phone] Allergies Active Allergy Reactions Criticality Noted Date Comments Codeine Unknown 03/19/2023 Prednisone Other 03/19/2023 Wound Dressing Adhesive Rash Low 03/19/2023 Band-aids Medications carvedilol (Coreg) 12.5 MG tablet Take 12.5 mg by mouth in the morning and 12.5 mg in the evening. Take with meals. 09/04/2024 Active hydroCHLOROthia zide (HYDRODiuril) 25 MG tablet Take 25 mg by mouth Daily Active cyclobenzaprine (Flexeril) 10 MG tablet Take 10 mg by mouth 3 (three) times a day as needed for muscle spasms 01/17/2025 Active meloxicam (Mobic) 7.5 MG tablet Take 7.5 mg by mouth Daily 01/17/2025 Active Active Problems No known active problems Encounters Date Type Department Care Team Description 01/21/2025 3:00 PM EDT Office Visit [facility] [address] [place] [address] Helder Tang DO Amenorrhea (Primary Dx); Irregular periods/menstrual cycles 01/21/2025 Bamboo flowsheet [facility] [address] [place] [address] Helder Tang DO from Last 3 Months Immunizations Immunization Administration Dates Next Due DTP 01/08/1992,01/07/1991,12/31/1989 ,03/15/1988,02/03/1988 HiB, unspecified 05/18/1988 MMR 01/19/1999,1986 OPV 01/07/1991,03/15/1988,02/03/1988 ,1986 Family History Medical History Relation Name Comments Heart disease Mother Psoriasis Neg Hx Relation Name Status Comments Father Alive Mother Alive Social History Tobacco Use Types Packs/Day Years Used Date Smoking Tobacco: Every Day Cigarettes Tobacco Cessation:Ready to Q uit: Not Asked; Counseling Given: Not Answered Comments:Patient started smoking 20 years ago (noted 03/15/22). [...] Orientation Straight 03/14/2023 9: 47 AM EDT Last Filed Vital Signs Vital Sign Reading Time Taken Comments Blood Pressure 120/76 01/21/2025 3:27 PM EDT Pulse - - Temperature - - Respiratory Rate - - Oxygen Saturation - - Inhaled Oxygen Concentration - - Weight 88.5 kg (195 lb) 01/21/2025 3:27 PM EDT Height 175.3 cm (5' 9 ) 03/25/2024 2:24 PM EST Body Mass Index 28.8 03/25/2024 2:24 PM EST Plan of Treatment Upcoming Encounters Date Type Department Care Team (Late st Contact Info) Description 04/15/2025 2:00 PM EST Office Visit [facility] [address] [place] [phone] Helder Tang DO [address] [place] [address] Insurance BC[employer] Care Teams Cardiology Coordinator Relationship Specialty Start Date End Date Aris Bishop MD [address] [place] [address] PCP - General Family Medicine 03/19/23
--- OUTSIDE RECORDS SUMMARY | 2025-01-24 12:36 | XMS_ITS | Encounter Summary ---
Author Organization [facility] Address [address] [place] [address] Care Team Providers Care Automobile Accessories Installer Name Role Phone Aris Bishop MD Primary Care Provider [phone] Encounter Details Date Type Department Care Team (Late st Contact Info) Description 08/24/2024 External Result Encounter [facility] [address] [place] [phone] Hector Ceja, KARINA [address] [place] [phone] Social History Tobacco Use Types Packs/Day Years [...] PM EST Office Visit [facility] [address] [place] [address] [place] [phone] Helder Tang, DO [address] [facility] [address] [place] [phone] documented as of this encounter Procedures Procedure Name Priority Date/Time Associated Diagnosis Comments MR SHOULDER LEFT WO IV CONTRAST 08/25/2024 1:21 PM EDT XR THORACIC SPINE 2 VIEWS 08/24/2024 2:44 PM EDT documented in this encounter Results * MR shoulder left wo IV contrast (08/25/2024 1:21 PM EDT) Anatomical Region Laterality Modality Upper Extremities, Shoulder Left Magn etic Resonance 08/25/2024 1:21 PM EDT Narrative 08/25/2024 1:20 PM EDT THIS EXAM WAS PERFORMED AT [facility] MR SHOULDER LT WO CONT CLINICAL INFORMATION: [...] Cliff Cantor MD on 08/25/2024 1:20 PM Procedure Note Radiology, Radiologist, MD - 08/25/2024 THIS EXAM WAS PERFORMED AT [facility] SHOULDER LT WO CONT CLINICAL INFORMATION: 39 years old Female with left shoulder pain times3-5 months. COMPARISON: None PROCEDURE: Multiplanar multisequence images of the shoulder performed. Nointravenous contrast. FINDINGS: ROTATOR CUFF AND ASSOCIATED STRUCTURES Long head biceps tendon: No tear or significant tendinosis. The extraarticular portion of the long head of the biceps tendon is properlysituated within the bicipital groove. Rotator cuff and muscles: Supraspinatus: No tear or tendinopathy. Infraspinatus: No tear or tendinopathy. Teres minor: No tear or tendinopathy. Subscapularis: No tear or tendinopathy. Fluid: No fluid in the bursa. Minimal thickening/edema of the bursa OSSEOUS STRUCTURES Acromioclavicular joint and shoulder arch: Type 1 acromion. No osacromiale. No osteoarthritis of the acromioclavicular joint. No narrowingof the shoulder arch. No signs of impingement. Bones: No Hill-Sachs, reverse Hill-Sachs, or bony Bankart lesions. Nofracture. No osteonecrosis. No suspicious osseous lesion. GLENOHUMERAL JOINT Joint: Trace joint fluid. Normal alignment. Cartilage: No full thickness chondral defect. Labrum: No displaced labral tear. No paralabral cyst. Other support structures: No capsular or ligamentous abnormality. IMPRESSION: * Minimal thickening/edema of the subacromial/subdeltoid bursa. No fluidin the bursa. * Otherwise unremarkable MRI of the left shoulder. No discrete rotatorcuff tear. Approved by Resident Clint Sanchez DO on 08/25/2024 1:07 PM Cliff Vaughn MD have personally reviewed the image(s) and agree withand/or edited the report Finalized by Cliff Cantor MD on 08/25/2024 1:20 PM us [facility] IMG MRI PROCEDURES Final Resu lt * XR thoracic spine 2 views (08/24/2024 2:44 PM EDT) Anatomical Region Laterality Modality Spine, T-spine Radiographic Yesica ging 08/24/2024 2:44 PM EDT Narrative 08/24/2024 2:43 PM EDT [facility] EXAM: XR SPINE THORACIC 2 VWS CLINICAL [...] August Obrien MD on 08/24/2024 2:43 PM Procedure Note Radiology, Radiologist, MD - 08/24/2024 THIS EXAM WAS PERFORMED AT [facility] EXAM: XR SPINE THORACIC 2 VWS CLINICAL INFORMATION: Acute left-sided thoracic pain. COMPARISON: None. FINDINGS: There is no malalignment within the thoracic spine. There is nosignificant loss of the vertebral body or disc space heights. There is noevidence for an acute displaced fracture. IMPRESSION: Normal AP and lateral views of the thoracic spine. Finalized by August Obrien MD on 08/24/2024 2:43 PM [facility] XR PROCEDURES Final Resul t documented in this encounter Visit Diagnoses Not on filedocumented in this encounter Care Teams Automobile Accessories Installer Relationship Specialty Start Date End Date Aris Bishop MD [address] [place] [phone] PCP - General Family Medicine 03/19/23 documented as of this encounter
--- OUTSIDE RECORDS SUMMARY | 2025-01-24 12:36 | XMS_ITS | Encounter Summary ---
Author Organization [facility] Address [address] [place] [address] Care Team Providers Care Dog Show Judge Name Role Phone Aris Bishop MD Primary Care Provider [phone] Encounter Details Date Type Department Care Team (Late st Contact Info) Description 04/01/2024 Abstract [facility] [address] [place] [phone] Ildefonso Mansfield, DPM [address] [place] [address] Social History Tobacco Use Types Packs/Day Years [...] PM EST Office Visit [facility] [address] [place] [address] [place] [phone] Helder Tang, [address] [place] [address] documented as of this encounter Visit Diagnoses Not on filedocumented in this encounter Care Teams Dog Show Judge Relationship Specialty Start Date End Date Aris Bishop MD [address] [facility] [place] [address] PCP - General Family Medicine 03/19/23 documented as of this encounter
--- OUTSIDE RECORDS SUMMARY | 2025-01-24 12:36 | XMS_ITS | Clinical Summary ---
Author Organization [facility] tem Address [facility] [address] [place] [address] Care Team Providers Care Pocket Flap Creasing Machine Operator Name Role Phone No Pcp, No Pcp Primary Care Provider Unavailabl e Allergies Active Allergy Reactions Criticality Noted Date Comments Adhesive Rash Low 08/27/2024 Codeine Vomiting 08/27/2024 Medications hydroCHLOROthia zide (HYDRODIURIL) 25 mg tablet Take 1 tablet (25 mg total) by mouth daily. 09/04/2024 Active carvediloL (COREG) 25 mg tablet Take 1 tablet (25 mg total) by mouth in the morning and 1 tablet (25 mg total) in the evening. Take with meals. 09/01/2024 Active Active Problems Problem Noted Date Diagnosed Date Cervical radiculopathy 11/12/2024 Thoracic spondylosis without myelopathy 10/02/19 Encounters Date Type Department Care Team Description 12/16/2024 4:35 PM EDT - 12/16/2024 11:59 PM EDT Hospital Encounter [facility] - Radiology [address] [place] [address] Cervical radiculopathy Discharge Disposition: Home 12/16/2024 Travel 11/12/2024 1:30 PM EDT Office Visit [facility] [address] [place] [phone] Lorena Padgett PA-C Cervical radiculopathy (Primary Dx); Thoracic spondylosis without myelopathy 11/12/2024 Travel from Last 3 Months Family History Medical History Relation Name Comments Alcohol abuse Father Cirrhosis Father Relation Name Status Comments Father Social History Tobacco Use Types Packs/Day Years Used Date Smoking Tobacco: Every Day Cigarettes 1 25.4 Started: 08/28/1999 Smokeless Tobacco: Never Tobacco Cessation:Ready to Q uit: No; Counseling Given: Not Answered Alcohol Use Standard Drinks/Week Comments Yes 0 (1 standard drink = 0.6 oz pure alcohol) 10 drinks/week, twisted tea daily Childcare Answer Date Recorded Childcare Unknown 10/30/2018 Employment Answer Date Recorded Employment Unknown 10/30/2018 Hunger Screening Answer Date Recorded Within the past 12 months we worried whether our food would run out before we got money to buy more. Never True 11/12/2024 Within the past 12 months th e food we bought just didn't last and we didn't have money to get more. Never True 11/12/2024 Comments Unknown Sex and Gender Information Value Date Recorded Sex Assigned at Not on file Legal Sex Female 12:03 PM EDT Gender Identity Not on file Sexual Orientation Not on file Last Filed Vital Signs Vital Sign Reading Time Taken Comments Blood Pressure 140/95 11/12/2024 1:42 PM EDT Pulse 62 11/12/2024 1:42 PM EDT Temperature - - Respiratory Rate 16 10/01/2024 1:12 PM EDT Oxygen Saturation 98% 11/12/2024 1:42 PM EDT Inhaled Oxygen Concentration - - Weight 88.5 kg (195 lb) 11/12/2024 1:42 PM EDT Height 175.3 cm (5' 9 ) 11/12/2024 1:42 PM EDT Body Mass Index 28.8 11/12/2024 1:42 PM EDT Plan of Treatment Upcoming Encounters Date Type Department Care Team (Late st Contact Info) Description 01/28/2025 12:45 PM EDT Office Visit [facility] [address] [place] [address] Lorena Padgett PAReaganC [address] [place] [address] Health Maintenance Due Date Last Done Comments Tobacco Counseling 1985 DTaP,Tdap and Td Vaccines (6 - Tdap) 1997 01/08/1992, 01/07/1991, 12/31/1989, Additional history exists Depression Screening 1998 Adult BMI Follow Up Plan 01/30/2004 Pap Smear 2007 Influenza Vaccine 01/19/2025 Adult BMI Screening 11/12/2025 11/12/2024 Tobacco Screening 11/12/2025 11/12/2024 Medical Devices Not on file Procedures Procedure Name Priority Date/Time Associated Diagnosis Comments XR SPINE CERVICAL 3 VWS OR LESS Routine 12/16/2024 4:43 PM EDT Cervical radiculopathy from Last 3 Months Results * X-ray spine cervical 3 views or less (12/16/2024 4:43 PM EDT) Anatomical Region Laterality Modality MSK, Neuro, Spine, C-spine N/A Compu yessenia Radiography 12/17/2024 9:40 AM EDT Narrative 12/17/2024 9:41 AM EDT CERVICAL SPINE 3 VIEW COMPARISON: None. HISTORY: Cervical radiculopathy. . IMPRESSION: * No evidence for an acute fracture. No subluxation. C7-T1 level is partially obscured by the shoulders. * C5-6 disc space narrowing with posterior endplate spurring. Diffuse facet arthropathy. Finalized by Cliff Cantor MD on 12/17/2024 9:41 AM Procedure Note Cliff Cantor MD - 12/17/2024 CERVICAL SPINE 3 VIEW COMPARISON: None. HISTORY: Cervical radiculopathy. . IMPRESSION: * No evidence for an acute fracture. No subluxation. C7-T1 level ispartially obscured by the shoulders. * C5-6 disc space narrowing with posterior endplate spurring. Diffusefacet arthropathy. Finalized by Cliff Cantor MD on 12/17/2024 9:41 AM Lorena Padgett PA-C [facility] Final Result from Last 3 Months Insurance [employer] Care Teams Pocket Flap Creasing Machine Operator Relationship Specialty Start Date End Date No Pcp, No Pcp [place]ST[place] [id number] PCP - General 07/23/13
--- OUTSIDE RECORDS SUMMARY | 2025-01-24 12:37 | XMS_ITS | CCD ---
Author Organization [facility] Care Team Providers Care Crew Leader/Control Room Operator Name Role Phone KITTY, DR GAVIRIA Attending Unavailable KITTY, DR GAVIRIA Consulting Unavailable KITTY, DR GAVIRIA Admitting Unavailable COLBY ., DR MAIN Primary Care Unavailable Aris Bishop MD Primary Care Provider [phone] JOHN CEJA Attending Unavailable JOHN CEJA Referring Unavailable NO PCP, NO PCP Primary Care Unavailable JOHN CEJA Referring Unavailable NO PCP, NO PCP Primary Care Unavailable SYD PADGETT Attending Unavailable JOHN CEJA Referring Unavailable NO PCP, NO PCP Primary Care Unavailable VERHOFF, SYD N Attending Unavailable VERHOFF, SYD N Referring Unavailable NO PCP, NO PCP Primary Care Unavailable VERHOFF, SYD N Attending Unavailable HERRERA, MAILE E Referring Unavailable NO PCP, NO PCP Primary Care Unavailable HERRERA, MAILE E Admitting Unavailable HERRERA, MAILE E Attending Unavailable HERRERA, MAILE E Referring Unavailable NO PCP, NO PCP Primary Care Unavailable VERHOFF, SYD N Attending Unavailable VERHOFF, SYD N Referring Unavailable NO PCP, NO PCP Primary Care Unavailable VERHOFF, SYD N Referring Unavailable NO PCP, NO PCP Primary Care Unavailable Migdalia Crystal DO Attending Provider [phone] Aris Bishop MD Primary Care Provider [phone] Aris Bishop MD Primary Care Provider [phone] JOHN CEJA Attending Unavailable JOHN CEJA Referring [...] IVERSON Attending Unavailable JOHN CEJA Referring Unavailable LEROY IVERSON Attending Unavailable JOHN CEJA Referring Unavailable JAMEEL THEODORE Attending Unavailable JOHN CEJA Referring Unavailable LEROY IVERSON Attending Unavailable JOHN CEJA Referring Unavailable JR. BROWN GEORGE C Attending Unavaila KATHRIN Deutsch Attending Unavailable KHADRA TANG Attending Unavailable KHADRA TANG Attending Unavailable Allergies Allergy Classification Reported Allergen(s) Allergy Type Date of Onset Reaction(s) Facility (3 sources) Codeine; Translations: [CODEINE] Drug Allergy 5 [facility] (20 sources) Codeine Drug Allergy 3 Unknown [facility] Work Phone: (20 sources) Prednisone Allergy to substance 3 Other [facility] (20 sources) Wound Dressing Adhesive Drug Allergy 3 Rash [facility] Healthcare (1 source) Adhesive agent; Translations: [...] [Pain in joint, shoulder region] 07-02-2024 Episodic Spondylosis; intervertebral disc disorders; other back problems (2 sources) Thoracic spondylosis without myelopathy; Translations: [Spondylosis without myelopathy or radiculopathy, thoracic region] Onset: 10-01-2024 Chronic Spondylosis; intervertebral disc disorders; other back problems (9 sources) Acute thoracic back pain; Translations: [Pain [...] SCREENING HUMAN PAPILLOMAVIRUS] Onset: 03-19-2022 Episodic Other non-traumatic joint disorders (1 source) Shoulder pain Onset: 08-27-2024 Episodic Other screening for suspected conditions (not mental disorders or infectious disease) (4 sources) Encounter for screening for malignant neoplasm of cervix; Translations: [ENC SCREENING MALIG NEOPLASM CERV] Onset: 03-15-2022 Episodic Results Test Name Value Interpretation Reference Range Facility XR SPINE CERVICAL 3 VWS OR L ESSon 12-17-2024 XR SPINE CERVICAL 3 VWS OR LESS XR SPINE CERVICAL 3 VWS OR LESS CERVICAL SPINE 3 VIEW COMPARISON: None. HISTORY: Cervical radiculopathy. . IMPRESSION: * No evidence for an acute fracture. No subluxation. C7-T1 level is partially obscured by the shoulders. * C5-6 disc space narrowing with posterior endplate spurring. Diffuse facet arthropathy. Finalized by Cliff Cantor MD on 12/17/2024 9:41 AM Normal [facility] MR THORACIC SPINE WO CONTon 09-28-2024 MR [...] Obrien MD on 09/28/2024 12:18 AM Normal [facility] MR SHOULDER LT WO CONTon MR SHOULDER [...] Clint Sanchez DO on 08/25/2024 1:07 PM I, Cliff Cantor MD have personally reviewed the image(s) and agree with and/or edited the report Finalized by Cliff Cantor MD on 08/25/2024 1:20 PM Normal [facility] XR SPINE THORACIC 2 VWSon XR SPINE [...] Obrien MD on 08/24/2024 2:43 PM Normal [facility] XR Shoulder - left 2 Viewson 07-02-2024 Imaging Result: AP and Scap Y Left shoulder: No acute fracture or dislocation Minimal degenerative changes AC joint Visualized lung kingsley unremarkable Glenohumeral joint well aligned Impression: no acute process left shoulder [facility] observation (narrative) [facility] IGP,APTIMA HPV,AGE GDLNon AGE GDLN ACOG TESTING Note . [facility] Comment on above: TESTS RESULT FLAG U NITS REF RANGE LAB Clinician Provided Cytology Information Source.............Cervix;Endocervix No. of containers..01 ThinPrep Vial Age Algo ACOG Juana... 30-65 01 FLAG LEGEND: L-Low Normal,H-High Normal,LL-Alert Low,HH-Alert High <-Panic Low,>-Panic High,A-Abnormal,AA-Critical Abnormal Performed at: 01 =[address] [address] Lesley Metz MD, HPV APTIMA Negative Negative [facility] Comment on above: This nucleic acid am plification test detects fourteen high- risk HPV types (16,18,31,33,35,39,45,51,52,56,58,59,66,68) without differentiation. Performed at: =[address] [id number] Development Coach: Lesley Metz MD, Phone: [phone] Performed at: [address] [id number] Development Coach: Lesley Metz MD, Phone: [phone] IGP, APTIMA HPV, RFX 16/18,45 Note Abnormal . [facility] Comment on above: TESTS RESULT FLAG UN ITS REF RANGE LAB DIAGNOSIS: [A] 02 EPITHELIAL CELL ABNORMALITY. ATYPICAL SQUAMOUS CELLS OF UNDETERMINED SIGNIFICANCE (ASC-US). Recommendation: [A] 02 Suggest follow up as clinically appropriate. Specimen adequacy: 02 Satisfactory for evaluation. Endocervical and/or squamous metaplastic cells (endocervical component) are present. Performed by: Buck Merino, Girls Tennis Coach (ASCP) Electronically Keren Jarrell MD, Pathologist . Pathologist ICD10: 02 R87.610 Note: Note 02 [...] <-Panic Low,>-Panic High,A-Abnormal,AA-Critical Abnormal Performed at: [address] [address] Lesley Metz MD, Interpretation and review of laboratory results Abnormal [facility] [employer] re BRUSH-SPATULA CERVIX ENDOCERVIX [facility] WePow e ALL CBC WITH AUTO DIFFon BASOPHILS ABSOLUTE AUTO 0.1 [facility] Basophils/100 WBC (Bld) 0.5 % 0.2 - 2.0 % [facility] Eosinophils/100 WBC (Bld) 1.7 % 0.9 - 7.0 % [facility] Erythrocyte distribution width (RBC) [Ratio] 13.9 % 11.0 - 15.0 % [facility] [employer] Hematocrit (Bld) [Volume fraction] 42.5 % 36.0 - 48.0 % [facility] [employer] Hemoglobin (Bld) [Mass/Vol] 13.8 g/dL 12.0 - 16.0 g/dL [facility] IMMATURE GRANULOCYTES ABS AUTO 0.07 High [facility] Immature granulocytes/100 WBC (Bld) 0.7 % High 0.0 - 0.5 % [facility] Interpretation and review of laboratory results Abnormal [facility] LYMPHOCYTES ABSOLUTE AUTO 2.6 [facility] Lymphocytes/100 WBC (Bld) 25.5 % 20.5 - 60.0 % [facility] MCH (RBC) [Entitic mass] 31 pg 26.7 - 34.0 pg [facility] MCHC (RBC) [Mass/Vol] 32.5 g/dL 29.9 - 35.2 g/dL [facility] MCV (RBC) [Entitic vol] 95.5 fL 81.0 - 99.0 fL [facility] MONOCYTES ABSOLUTE AUTO 0.8 [facility] Monocytes/100 WBC (Bld) 7.9 % 1.7 - 12.0 % [facility] NEUTROPHILS ABSOLUTE AUTO 6.5 [facility] Neutrophils/100 WBC (Bld) 63.7 % 43.0 - 75.0 % [facility] Platelet mean volume (Bld) [Entitic vol] 9.9 fL 9.5 - 13.5 fL [facility] TBH EO # 0.2 [facility] PLT 233 [facility] RBC 4.45 [facility] WBC 10.2 [facility] Health[facility] e AST AND Marcus 03-24-2024 [facility] Cytology Cervical or vaginal smear or scraping studyOrdered By: Herlinda Saenz on 10-08-2023 [facility] Healthcar e PAP ACOG PANEL 2: 30 to 65on 03-23-[address] [facility] Comment on above: Result Comment: Perf ormed at: WB Performed By: #### [id number] #### [facility] [address] [address] [address] Douglas Stout Age Gdln ACOG Testing [address] [facility] Comment on above: Performed By: #### [id number] #### [facility] [address] [address] [address] Douglas Stout DIAGNOSIS: Comment Normal [facility] Comment on above: Result Comment: NEGA TIVE FOR INTRAEPITHELIAL LESION OR MALIGNANCY. Performed at: WB Performed By: #### [id number] #### [facility] [address] [place] [address] Dr. Douglas Stout HPV Aptima Negative Normal Negative [facility] Comment on above: Result Comment: This nucleic acid amplification test detects fourteen high-risk HPV types (16,18,31,33,35,39,45,51,52,56,58,59,66,68) without differentiation. Performed at: =G Performed By: #### [id number] #### [facility] [address] [place] [address] Dr. Douglas Stout HPV Genotype Reflex Comment Normal [facility] Comment on above: Result Comment: Crit eria not met, HPV Genotype not performed. Performed at: WB Performed By: #### [id number] #### [facility] [address] [place] [address] Dr. Douglas Stout Methodology: Comment Normal [facility] Comment on above: Result Comment: This liquid based ThinPrep(R) pap test was screened with the use of an image guided system. Performed at: WB Performed By: #### [id number] #### [facility] [address] [place] [address] Dr. Douglas Stout Note: Comment Normal [facility] Comment on above: Result Comment: The Pap smear is a screening test designed to aid in the detection of premalignant and malignant conditions of the uterine cervix. It is not a diagnostic procedure and should not be used as the sole means of detecting cervical cancer. Both false-positive and false-negative reports do occur. . Performed at: WB Performed By: #### [id number] #### [facility] [address] [place] [address] Dr. Douglas Stout Performed by: Comment Normal [facility] Comment on above: Result Comment: Nicolette Raza, Girls Tennis Coach (ASCP) Performed at: WB Performed By: #### [id number] #### [facility] [address] [place] [address] Dr. Douglas Stout Specimen adequacy: Comment Normal [facility] Comment on above: Result Comment: Sati sfactory for evaluation. Endocervical and/or squamous metaplastic cells (endocervical component) are present. Performed at: Performed By: #### [id number] #### [facility] [address] [place] [address] Dr. Douglas Stout Vital Signs Date Time Vital Sign Value Performing Clinician Faci lity 03-25-2024 14:24-0500 Body height 175.3 cm Khadra Kitty DO Work Phone: [facility] 03-25-2024 14:24-0500 Body mass index (BMI) [Ratio] 28.86 kg/m2 Khadra Kitty DO Work Phone: [facility] 03-25-2024 14:24-0500 Body weight 88.63 kg Khadra Kitty DO Work Phone: [facility] 03-25-2024 14:24-0500 Diastolic blood pressure 70 mm[Hg] Khadra Kitty DO Work Phone: [facility] 03-25-2024 14:24-0500 Systolic blood pressure 124 mm[Hg] Khadra Kitty DO Work Phone: [facility] 03-19-2024 13:09-0400 Body height 175.3 cm Kathrinmary Mansfield DPM Work Phone: [facility] 03-19-2024 13:09-0400 Body mass index (BMI) [Ratio] 28.32 kg/m2 Kathrin Rusher DPM Work Phone: [facility] 03-19-2024 13:09-0400 Body weight 87 kg Kathrin Rusher DPM Work Phone: [facility] Healthcare Encounters Encounter Date Encounter Type Care Provider Facility Start: 01-21-2025 End: 01-21-2025 ambulatory KHADRA KITTY Not Available Start: 01-21-2025 End: 01-21-2025 Bamboo flowsheet [facility]hadra Kitty [facility] Start: 01-21-2025 End: 01-21-2025 Bamboo flowsheet Khadra Kitty DO Work Phone: [facility] Start: 01-14-2025 End: 01-14-2025 ambulatory Aris Bishop MD Work Phone: [facility] Work Phone: Start: 01-14-2025 End: 01-14-2025 Patient encounter procedure Migdalia Herrmann Marah DO -[facility] Work Phone: Start: 12-16-2024 End: 12-16-2024 ambulatory [facility] Start: 11-12-2024 End: 11-12-2024 ambulatory [facility] Start: 10-17-2024 End: 10-17-2024 ambulatory [facility] Start: 10-01-2024 End: 10-01-2024 ambulatory [facility] Start: 09-25-2024 End: 09-25-2024 ambulatory [facility] Start: 08-28-2024 End: 08-28-2024 Telephone encounter Jr. Jennifer Brown DO Work Phone: [facility] Comment on above: change appt Start: 08-27-2024 End: 08-27-2024 ambulatory [facility] Start: 08-26-2024 End: 08-26-2024 Office outpatient visit 15 minutes Jr. Jennifer Brown DO Work Phone: [facility] Comment on above: Acute left-sided tho racic back pain (Primary Dx) Start: 08-26-2024 End: 08-26-2024 ambulatory JENNIFER VIZCAINO Not Available Start: 08-25-2024 End: 08-26-2024 ambulatory Leroy Iverson PT Work Phone: [facility] Comment on above: Acute pain of left s houlder (Primary Dx); Scapular dyskinesis Start: 08-25-2024 End: 08-25-2024 Bamboo flowsheet Leroy Teagueton PT Work Phone: [facility] Start: 08-25-2024 End: 08-25-2024 Bamboo flowsheet Leroy Obando Blackston PT Work Phone: [facility] Start: 08-22-2024 End: 08-22-2024 ambulatory JOHN CEJA [facility] Start: 08-20-2024 End: 08-20-2024 ambulatory Jameel Abdullahi HEAD PASTRY CHEF [facility] Comment on above: Acute pain of left s houlder (Primary Dx); Scapular dyskinesis Start: 08-20-2024 End: 08-20-2024 Bamboo flowsheet Jameel Brink HEAD PASTRY CHEF [facility] Start: 08-20-2024 End: 08-20-2024 Bamboo flowsheet Jameel Brink HEAD PASTRY CHEF [facility] Start: 08-14-2024 End: 08-14-2024 ambulatory Leroy Teagueton PT Work Phone: [facility] Comment on above: Acute pain of left s houlder (Primary Dx); Scapular dyskinesis Start: 08-14-2024 End: 08-14-2024 Bamboo flowsheet Leroy Teagueton PT Work Phone: [facility] Start: 08-14-2024 End: 08-14-2024 Bamboo flowsheet Leroy T Amoston PT Work Phone: [facility] Start: 08-12-2024 End: 08-13-2024 ambulatory LEROY Tone AMOSTON Not Available Start: 08-06-2024 End: 08-06-2024 ambulatory JAMEEL BRBOB Not Available Start: 08-05-2024 End: 08-05-2024 ambulatory LEROY Tone AMOSTON Not Available Start: 07-30-2024 End: 07-30-2024 Bamboo flowsheet John Ceja PA Work Phone: [facility] Start: 07-30-2024 End: 07-30-2024 Bamboo flowsheet John J Marcial PA Work Phone: [facility] Start: 07-30-2024 End: 07-30-2024 Office outpatient visit 15 minutes John J Marcial PA Work Phone: [facility] Comment on above: Acute pain of left s houlder (Primary Dx); Acute left-sided thoracic back pain; Internal derangement of left shoulder Start: 07-30-2024 End: 07-30-2024 ambulatory JOHN Herrmann CEJA Not Available Start: 07-28-2024 End: 07-29-2024 ambulatory LEROY T SOHAIL Not Available Start: 07-28-2024 End: 07-28-2024 Bamboo [...] [facility] Start: 07-17-2024 End: 07-17-2024 ambulatory Nati Kelbley HEAD PASTRY CHEF [facility] Comment on above: Acute pain of left s houlder (Primary Dx); Scapular dyskinesis Start: 07-17-2024 End: 07-17-2024 Bamboo flowsheet Nati Kelbley HEAD PASTRY CHEF [facility] Start: 07-17-2024 End: 07-17-2024 Bamboo flowsheet Nati Kelbley HEAD PASTRY CHEF [facility] Start: 07-14-2024 End: 07-15-2024 ambulatory Sander Daniels PT [facility] Comment on above: Acute pain of left s houlder (Primary Dx); Scapular dyskinesis Start: 07-14-2024 End: 07-14-2024 Bamboo flowsheet Sander Daniels PT [facility] Start: 07-14-2024 End: 07-14-2024 Bamboo flowsheet Sander Daniels PT [facility] Start: 07-02-2024 End: 07-02-2024 Bamboo flowsheet John COLLINS Work Phone: [facility] Start: 07-02-2024 End: 07-02-2024 Bamboo flowsheet John Ceja PA Work Phone: [facility] Start: 07-02-2024 End: 07-02-2024 Office outpatient new 45 minutes John COLLINS Work Phone: [facility] Comment on above: Acute pain of left s annette (Primary Dx); Scapular dyskinesis; Chronic myofascial pain [...] encounter procedure Khadra Kitty DO Work Phone: [facility] Work Phone: Start: 03-25-2024 End: 03-25-2024 Periodic preventive med est patient 18-39 yrs Khadra Kitty DO Work Phone: [facility] Comment on above: Well woman exam with routine gynecological exam; Fatigue, unspecified type Start: 03-25-2024 End: 03-25-2024 ambulatory KHADRA TANG Not Available Start: 03-24-2024 End: 03-24-2024 Orders Only Kathrin Mansfield DPM Work Phone: [facility] Comment on above: Onychomycosis (Prima ry Dx) Start: 03-19-2024 End: 03-19-2024 Bamboo flowsheet Kathrin Mansfield DPM Work Phone: [facility] Start: 03-19-2024 End: 03-19-2024 Bamboo flowsheet Kathrin Mansfield DPM Work Phone: [facility] Start: 03-19-2024 End: 03-19-2024 Office outpatient new 45 minutes Kathrin Mansfield DPM Work Phone: [facility] Comment on above: Onychomycosis (Prima ry Dx); Tinea pedis of right foot; Lichen planus; Right foot pain Start: 03-19-2024 End: 03-19-2024 ambulatory KATHRIN MANSFIELD Not Available Start: 03-15-2022 End: 03-15-[address] KHADRA TANG Facility:H1 Procedures Date Procedure Procedure Detail Performing Clinician Start: 07-02-2024 Radex shoulder compl ete minimum 2 views John COLLINS Work Phone: Start: 03-29-2024 ALL CBC WITH AUTO DIFF Khadra Tang DO Work Phone: Start: 03-25-2024 IGP,APTIMA HPV,AGE GDLN Khadra Kitty DO Work Phone: Start: 03-24-2024 AST AND ALT Kathrin Mansfield DPM Work Phone: Start: 10-08-2023 Cytp cerv/vag auto t hin layer prep mnl screen Khadra Tang DO Work Phone: Plan of Treatment Date Care Activity Detail Author Start: 04-15-2025 End: 04-15-2025 Patient encounter procedure 04/15/2025 2:00 PM EST Office Visit [facility] [address] [place] [phone] Khadra Tang, DO [address] [place] [address] [facility] Start: 09-23-2024 End: 09-23-2024 Patient encounter procedure 09/23/2024 9:45 AM EDT Office Visit [facility] [address] [place] [phone] Jr. Jennifer Brown, DO [address] [place] [address] [facility] Start: 08-26-2024 End: 08-26-2024 Patient encounter procedure 08/26/2024 8:15 AM EDT Office Visit [facility] [address] [place] [phone] Jr. Jennifer Brown, DO [address] [place] [address] [facility] Start: 08-25-2024 End: 08-25-2024 ambulatory [facility] Comment on above: Arrived Start: 08-20-2024 End: 08-20-2024 ambulatory [facility] Comment on above: Acute pain of left s annette (Primary Dx); Scapular dyskinesis Start: 08-14-2024 End: 08-14-2024 ambulatory [facility] Comment on above: Arrived Start: 08-12-2024 End: 08-12-2024 ambulatory 08/12/2024 5:00 PM EDT Treatment [facility] [address] [place] [address] Leroy Iverson, PT [address] [place] [address] [facility] Start: 08-06-2024 End: 08-06-2024 ambulatory 08/06/2024 4:00 PM EDT Treatment [facility] [address] [place] [address] Jameel Theodore, HEAD PASTRY CHEF [facility] Start: 08-04-2024 End: 08-04-2024 ambulatory 08/04/2024 4:30 PM EDT Treatment [facility] [address] [place] [address] Leroy Iverson, PT [address] [place] [address] [facility] Start: 07-30-2024 End: 07-30-2025 [...] 07-30-2024 End: 07-30-2024 Patient encounter procedure [facility] Comment on above: Acute pain of left s houlder (Primary Dx) Start: 07-28-2024 End: 07-28-2024 ambulatory [facility] Comment on above: Arrived Start: 07-23-2024 End: 07-23-2024 Patient encounter procedure 07/23/2024 2:00 PM EST [facility] Visit [facility] [address] [place] [phone] Kathrin Mansfield, DPM [address] [place] [address] [facility] Start: 07-21-2024 End: 07-21-2024 ambulatory 07/21/2024 4:30 PM EST Treatment [facility] [address] [facility] [address] [place] [phone] Sander Daniels, PT [facility] Start: 07-17-2024 End: 07-17-2024 ambulatory 07/17/2024 4:00 PM EST Treatment [facility] [address] [facility] [address] [place] [address] Nati Eden, HEAD PASTRY CHEF [facility] Start: 07-14-2024 End: 07-14-2024 ambulatory 07/14/2024 4:00 PM EST Evaluation [facility] [address] [facility] [address] [place] [address] Sander Daniels, PT Acute pain of left shoulder; Scapular dyskinesis [facility] Comment on above: Acute pain of left s houlder; Scapular dyskinesis Start: 07-02-2024 End: 07-02-2024 Patient encounter procedure 07/02/2024 1:30 PM EST Office Visit [facility] [address] [phone] John Ceja, PA [address] [place] [address] Acute pain of left shoulder (Primary Dx) [facility] Comment on above: Acute pain of left s houlder (Primary Dx) Start: 03-25-2024 End: 03-25-2025 Lipid 1996 panel - Serum or Plasma Lipid panel Lab Routine Fatigue, unspecified type Expected: 03/25/2024 (Approximate), Expires: 03/25/2025 [facility] Comment on above: Expected: 03/25/2024 (Approximate), Expires: 03/25/2025 Start: 03-25-2024 End: 03-25-2024 Patient encounter procedure [facility] Comment on above: Arrived Start: 03-19-2024 End: 03-19-2025 Alanine aminotransferase [Enzymatic activity/volume] in Serum or Plasma ALT Lab Routine Onychomycosis Expected: 03/19/2024 (Approximate), Expires: 03/19/2025 [facility] Work Phone: Comment on above: Expected: 03/19/2024 (Approximate), Expires: 03/19/2025 Start: 03-19-2024 End: 03-19-2025 Aspartate aminotransferase [Enzymatic activity/volume] in Serum or Plasma AST Lab Routine Onychomycosis Expected: 03/19/2024 (Approximate), Expires: 03/19/2025 [facility] Comment on above: Expected: 03/19/2024 (Approximate), Expires: 03/19/2025 Start: 03-19-2024 End: 03-19-2024 Patient encounter procedure 03/19/2024 1:30 PM EDT Office Visit [facility] [address] [place] [phone] Kathrin Mansfield, DPM [address] [place], [place] [phone] Arrived [facility] Comment on above: Arrived CBC W Auto Different ial panel - Blood CBC and differential Lab Routine Fatigue, unspecified type Ordered: 03/25/2024 [facility] Comment on above: Ordered: 03/25/2024 Comprehensive metabo lic 2000 panel - Serum or Plasma Comprehensive metabolic panel Lab Routine Fatigue, unspecified type Ordered: 03/25/2024 [facility] Comment on above: Ordered: 03/25/2024 Cytology Cervical or vaginal smear or scraping study Pap Smear Pathology and Cytology Routine Well woman exam with routine gynecological exam Ordered: 03/25/2024 [facility] Work Phone: Comment on above: Ordered: 03/25/2024 Hemoglobin A1c/Hemoglobin.total in Blood Hemoglobin A1c Lab Routine Fatigue, unspecified type Ordered: 03/25/2024 [facility] Comment on above: Ordered: 03/25/2024 Human papilloma viru s DNA [Presence] in Unspecified specimen by Probe with amplification HPV DNA probe, amplified Microbiology Routine Well woman exam with routine gynecological exam Ordered: 03/25/2024 [facility] Comment on above: Ordered: 03/25/2024 Thyrotropin [Units/volume] in Serum or Plasma TSH Lab Routine Fatigue, unspecified type Ordered: 03/25/2024 [facility] Work Phone: Comment on above: Ordered: 03/25/2024 Immunizations Immunization Date Immunization Notes Care Provider Alexander de luna 01-19-1998 measles, mumps and rubella virus vaccine Kathrin Rusher DPM Work Phone: [facility] 01-08-1992 diphtheria, tetanus toxoids and pertussis vaccine Kathrin Rusher DPM Work Phone: [facility] 01-07-1991 diphtheria, tetanus toxoids and pertussis vaccine Kathrin Rusher DPM Work Phone: [facility] 01-07-1991 trivalent poliovirus vaccine, live, oral Kathrin Rusher DPM Work Phone: [facility] 12-31-1989 diphtheria, tetanus toxoids and pertussis vaccine Kathrin Rusher DPM Work Phone: [facility] 05-18-1988 haemophilus influenz ae type b vaccine, conjugate unspecified formulation Kathrin Rusher DPM Work Phone: [facility] 03-15-1988 diphtheria, tetanus toxoids and pertussis vaccine Kathrin Rusher DPM Work Phone: [facility] 03-15-1988 trivalent poliovirus vaccine, live, oral Kathrin Rusher DPM Work Phone: [facility] 02-03-1988 diphtheria, tetanus toxoids and pertussis vaccine Kathrin Rusher DPM Work Phone: [facility] 02-03-1988 trivalent poliovirus vaccine, live, oral Kathrin Rusher DPM Work Phone: [facility] 1986 measles, mumps and rubella virus vaccine Kathrin Mansfield DPM Work Phone: [facility] 1986 trivalent poliovirus vaccine, live, oral Kathrin Mansfield DPM Work Phone: [facility] Healthcare Payers Date Payer Category Payer [facility] er [id number] 2024 Unknown [id number] 2022 Medicaid [employer] [id number] 2022 Medicaid [id number] 1986 Unknown [id number] 2.16.840.1.927198.3.579.2. 593 1986 Unknown [id number] 2.16.840.1.918470.3.579.2. 1286 1986 Unknown [id number] 2.16.840.1.085629.3.579.2. 1285 1986 Unknown [id number] 2.16.840.1.378501.3.579.2. 1285 1986 Unknown [id number] 2.16.840.1.292154.3.579.2. 1285 1986 Unknown [id number] 2.16.840.1.279407.3.579.2. 1285 1986 Unknown [id number] 2.16.840.1.999785.3.579.2. 1285 1986 Unknown [id number] 2.16.840.1.643968.3.579.2. 1285 1986 Unknown [id number] 2.16.840.1.864796.3.579.2. 1285 1986 Unknown [id number] 2.16.840.1.471666.3.579.2. 1258 1986 Unknown [id number] 2.16.840.1.436847.3.579.2. 1258 1986 Unknown [id number] 2.16.840.1.786183.3.579.2. 1258 1986 Unknown [id number] 2.16.840.1.720476.3.579.2. 1258 1986 Unknown [id number] 2.16.840.1.768240.3.579.2. 1258 1986 Unknown [id number] 2.16.840.1.535924.3.579.2. 1258 1986 Unknown [id number] 2.16.840.1.542871.3.579.2. 1258 1986 Unknown [id number] 2.16.840.1.870419.3.579.2. 1258 1986 Unknown [id number] 2.16.840.1.370236.3.579.2. 1258 1986 Unknown [id number] 2.16.840.1.486051.3.579.2. 1258 1986 Unknown [id number] 2.16.840.1.722426.3.579.2. 1258 1986 Unknown [id number] 2.16.840.1.327078.3.579.2. 1258 1986 Unknown [id number] 2.16.840.1.680693.3.579.2. 1258 1986 Unknown [id number] 2.16.840.1.617490.3.579.2. 1258 1986 Unknown [id number] 2.16.840.1.135313.3.579.2. 1258 1986 Unknown [id number] 2.16.840.1.686809.3.579.2. 1258 1986 Unknown [id number] 2.16.840.1.028041.3.579.2. 9 1959 Unknown [id number] Social History Date Type Detail Facility Start: 03-05-2023 End: 03-19-2024 Tobacco smoking status NDIS Smokes tobacco daily [facility] Healthcare History of tobacco use Cigarette Smoker N [facility] Start: 10-08-2023 End: 08-26-2024 Alcoholic beverage intake Current drinker of alcohol (finding) [facility] Start: 03-05-2023 End: 08-26-2024 History of Social function [facility] Start: 03-05-2023 End: 08-26-2024 Tobacco use panel [facility] Start: 03-05-2023 Tobacco Comment Patient started smoking 20 years ago (noted 03/15/22).Smokes 11-20 cigarettes/day after 31-60 minutes of waking up. [facility] Start: 03-05-2023 Alcohol Comment 3 or 4 drinks on a typical day / 2 to 4 times a month. [facility] Healthcare Start: 1985 Sex assigned at Female [facility] Start: 03-14-2023 Gender identity Identifies as female gender (finding) [facility] Start: 03-14-2023 Sexual orientation Heterosexual (finding) [facility] Tobacco smoking stat us NHIS Unknown if ever smoked [facility] Work Phone: Sex Female (finding) [facility] Clinical Notes 03-19-2024 to 08-28-2024 Telephone Encounter - Sandra Lopez - 08/28/2024 2:55 PM EDTTelephone Encounter - Sandra [place] - 08/28/2024 2:55 PM EDTJr. Jennifer Brown, [...] Dr. Brown to set up his appt. [facility] 08-28-2024 Miscellaneous Notes Formattin g of this note might be different from the original. Carly seen Dr. Brown 08/26 he referred her to Pain Management Dr. eHrrera, but, before they will see her they [...] up his appt. documented in this encounter [facility] 08-26-2024 History of Presen t illness Narrative Images from the original note were not included. EveryHISTORY OF PRESENT ILLNESS: EST PT Carly Lentz is an 39 y.o. @ female. (EST PT WITH [facility]) RECHECK LT SHOULDER PAIN - HERE FOR RESULTS; XRAY T-SPINE AND MRI LT SHOULDER DONE 08/22/24 @ [facility] - [facility] ALSO REFERRED PT TO PAIN MANAGEMENT ; 1ST APPT IS TOMORROW (08/27/24) - FINISHED PT PERFECTOS MIGUEL; TRIED DRY NEEDLING; DENIES RELIEF - S/P CELEBREX; DISCONTINUED DUE TO HEART PALPITATIONS MRI LT SHOULDER 08/22/24 [facility] 08/22/24 [facility] (L[facility] SHOULDER 07/02/24 IN [facility]RAY EXA 04/09/19 DEPO INJECTION 04/09/19 - NO RELIEF P.T [facility] (#4 VISITS) PAIN MANAGEMENT [facility]; 1ST VISIT WILL BE 08/27/24 NOTES [...] requiring urgent evaluation. documented in this encounter [facility] 08-25-2024 History of Presen t illness Narrative Images from the original note were not included. Physical Therapy Treatment Visit Patient Name: Carly Lentz Today's Date: 08/25/24 Encounter Diagnoses Name Primary? [...] injection was about 10 years ago. Precautions: [place] Subjective: Pt. Reports of no change in [...] to be instructed in home exercise program. Urban Sociologist Goals: To be met in 10 weeks [...] sign below. Date: documented in this encounter [facility] 08-14-2024 History of Presen t illness Narrative Images from the original note were not included. Physical Therapy Treatment Visit Patient Name: Carly Lentz Today's Date: 08/14/24 Encounter Diagnoses Name Primary? [...] injection was about 10 years ago. Precautions: [place] Subjective: Pt. Reports of no change in her left scapular pain. No progress. Pain: 6/10 Objective: PT Evaluation (07/14/2024) LEFT SHOULDER AROM: [...] to be instructed in home exercise program. Penitentiary Goals: To be met in 10 weeks [...] sign below. Date: documented in this encounter [facility] 07-30-2024 History of Presen t illness Narrative Images from the original note were not included. HISTORY OF PRESENT ILLNESS: EST PT Carly Lentz is an 39 y.o. @ female. (EST PT) RECHECK LT SHOULDER PAIN - S/P CELEBREX, TOPICAL CAPSAICIN CREAM, AND P.T AT [facility] (#4 VISITS) XRAY (L) SHOULDER 07/02/24 IN [facility] XRAY EXA 04/09/19 DEPO INJECTION 04/09/19 - NO RELIEF P.T [facility] (#4 VISITS) MINIMAL IMPROVEMENT WITH CELEBREX. +TYL [...] requiring urgent evaluation. documented in this encounter [facility] 07-21-2024 History of Presen t illness Narrative Images from the original note were not included. Physical Therapy Treatment Visit Patient Name: Carly Lentz Today's Date: 07/21/2024 Encounter Diagnoses Name Primary? [...] injection was about 10 years ago. Precautions: [place] Subjective: Left shoulder and scapular region pain [...] to be instructed in home exercise program. Penitentiary Goals: To be met in 10 weeks [...] sign below. Date: documented in this encounter [facility] 07-02-2024 History of Presen t illness Narrative Images from the original note were not included. NAME: Carly Lentz : 1985 HISTORY OF PRESENT ILLNESS: NEW PT Carly Lentz is an 39 y.o. @ female. (NEW [...] LOOP ELECTRODE EXCISION 2018 SECTION, LOW TRANSVERSE 2005,2009 PAP SMEAR 02/16/2020 negative TUBAL LIGATION 2008 [...] requiring urgent evaluation. documented in this encounter [facility] 03-25-2024 History of Presen t illness Narrative Reason for Appointment: Patient ID: Carly Lentz is a 39 y.o. female who presents [...] nursing note reviewed. Exam conducted with a watch adjuster present. Vitals: Estimated body mass index is [...] Khadra Tang DO documented in this encounter [facility] 03-19-2024 History of Presen t illness Narrative Images from the original note were not included. Subjective Patient ID: Carly Lentz is a 39 y.o. 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 No treatment tried. She denies injury. Review [...] therapy. A nail nipper and electric bur grinder and plater were also utilized to debride the affected nails to help reduce fungal load and to palliate the symptomatic nails. Once nail specimen reviewed if there is positive fungal infection then she will get lab work. I printed out in order requisition for her today because she will get this done at [facility]. When I receive these results [...] Kathrin Mansfield DPM documented in this encounter [facility] Evaluation note Diagnosis Onychomycosis- Primary Dermatophytosis of nail Tinea pedis of right foot Lichen planus Right foot pain Pain in soft tissues of limb [facility] Diagnosis Onychomycosis- Primary Dermatophytosis of nail documented in this encounter [facility] HealthcareEvaluation note* Diagnosis Well woman exam with routine gynecological exam Routine gynecological examination Fatigue, unspecified type documented in this encounter [facility]Evaluation note* Diagnosis Acute pain of left shoulder- Primary Scapular dyskinesis Lack of coordination Chronic myofascial pain documented in this encounter [facility]* Diagnosis Acute pain of left shoulder- Primary Scapular dyskinesis Lack of coordination documented in this encounter [facility]* Diagnosis Acute pain of left shoulder- Primary Scapular dyskinesis Lack of coordination documented in this encounter [facility]* Diagnosis Acute pain of left shoulder- Primary Acute left-sided thoracic back pain Internal derangement of left shoulder documented in this encounter [facility]* Diagnosis Acute pain of left shoulder- Primary Scapular dyskinesis Lack of coordination documented in this encounter [facility]* Diagnosis Acute pain of left shoulder- Primary Scapular dyskinesis Lack of coordination documented in this encounter [facility] HealthcareEvaluation note* Diagnosis Acute left-sided thoracic back pain- Primary documented in this encounter [facility] HealthcareEvaluation noteNo assessment information availableThe [facility] Work Phone: Reqkpm for referral (narrative)No reason for referral information availableThe [facility] Work Phone: Reason for visit Narrative* Consultation (Routine) - Authorized Specialty Diagnoses / Procedures Referred By Tricia obando Referred To Contact Physical Therapy Diagnoses Acute pain of left shoulder Scapular dyskinesis Procedures [place] OFFICE/OUTPATIENT [facility] 60 MINUTES John Ceja PA [address] [facility] [address] [place] [address] Phone: tel: fax: Leroy Iverson, PT [address] [facility] [address] [place] [address] Phone: tel: fax: Referral ID Status Reason Start Date Expiration Date Visits Requested Visits Authorized [id number] Authorized Consult and Treat 07/02/2024 12/29/2024 30 30 [facility] Consultation (Routine) - Authorized Specialty Diagnoses / Procedures Referred By Tricia obando Referred To Contact Physical Therapy Diagnoses Acute pain of left shoulder Scapular dyskinesis Procedures GA OFFICE/OUTPATIENT [facility] 60 MINUTES John Ceja PA [address] [facility] [address] [place] [address] Phone: tel: fax: Leroy Iverson, PT [address] [facility] [address] [place] [address] Phone: tel: fax: Referral ID Status Reason Start Date Expiration Date Visits Requested Visits Authorized [id number] Authorized Consult and Treat 07/02/2024 05/20/2025 30 30 [facility] N[facility]* Consultation (Routine) - Closed Specialty Diagnoses / Procedures Referred By Tricia obando Referred To Contact Physical Therapy Diagnoses Acute pain of left shoulder Scapular dyskinesis Procedures [place] OFFICE/OUTPATIENT NEW [facility] 60 MINUTES John Ceja PA [address] [facility] [address] [place] [address] Phone: tel: fax: Leroy Iverson, PT [address] [facility] [address] [place] [address] Phone: tel: fax: Referral ID Status Reason Start Date Expiration Date V isits Requested Visits Authorized [id number] Closed Consult and Treat 07/02/2024 05/20/2025 30 30 [facility] Healthcare Summary Purpose Family History No Family History Records FoundNo Family History Records FoundNo Family History Records Found Advance Directives No Advanced Directives Records Found Advance Directive Response Recorded Date/ Time Advance Directives No December 02 11:45am Chief Complaint and Reason for Visit Chief Complaint Admit Date PRINCESS Padgett PA-C January 142024 12:46pm Additional Source Comments INFORMATION SOURCE (unrecogn ized section and content) DATE CREATED AUTHOR 09/22/2022 [facility] DATE CREATED AUTHOR AUTHOR'S ORGANIZ ATION 12/18/2024 [facility] DATE CREATED AUTHOR AUTHOR'S ORGANIZ ATION 01/23/2025 [facility] dical Specialists EPIC Care Teams (unrecognized sec tion and content) Crew Leader/Control Room Operator Relationship Specialty Start Date End Date Aris Bishop MD [address] [place] [facility] [place] [address] PCP - General Family Medicine 03/19/23 Crew Leader/Control Room Operator Relationship Specialty Start Date End Date Aris Bishop MD [address] [facility] [place] [address] PCP - General Family Medicine 03/19/23 Crew Leader/Control Room Operator Relationship Specialty Start Date End Date Aris Bishop MD [address] [facility] [place] [address] PCP - General Family Medicine 03/19/23 Crew Leader/Control Room Operator Relationship Specialty Start Date End Date Aris Bishop MD [address] [facility] [place] [address] PCP - General Family Medicine 03/19/23 Crew Leader/Control Room Operator Relationship Specialty Start Date End Date Aris Bishop MD [address] [facility] [place] [address] PCP - General Family Medicine 03/19/23 Crew Leader/Control Room Operator Relationship Specialty Start Date End Date Aris Bishop MD [address] [facility] [place] [address] PCP - General Family Medicine 03/19/23 Crew Leader/Control Room Operator Relationship Specialty Start Date End Date Aris Bishop MD [address] [facility] [place] [address] PCP - General Family Medicine 03/19/23 Crew Leader/Control Room Operator Relationship Specialty Start Date End Date Aris Bishop MD [address] [facility] [place] [address] PCP - General Family Medicine 03/19/23 Crew Leader/Control Room Operator Relationship Specialty Start Date End Date Aris Bishop MD [address] [facility] [place] [address] PCP - General Family Medicine 03/19/23 Crew Leader/Control Room Operator Relationship Specialty Start Date End Date Aris Bishop MD [address] [facility] [place] [address] PCP - General Family Medicine 03/19/23 Crew Leader/Control Room Operator Relationship Specialty Start Date End Date Aris Bishop MD [address] [facility], [facility] PCP - General Family Medicine 03/19/23 Crew Leader/Control Room Operator Relationship Specialty Start Date End Date Aris Bishop MD [address] [facility] [place] [address] PCP - General Family Medicine 03/19/23 Crew Leader/Control Room Operator Relationship Specialty Start Date End Date Aris Bishop MD [address] [facility] [place] [address] PCP - General Family Medicine 03/19/23 Crew Leader/Control Room Operator Relationship Specialty Start Date End Date Aris Bishop MD [address] [facility] [place] [address] PCP - General Family Medicine 03/19/23 Crew Leader/Control Room Operator Relationship Specialty Start Date End Date Aris Bishop MD [address] [place] [address] PCP - General Family Medicine 03/19/23 Crew Leader/Control Room Operator Relationship Specialty Start Date End Date Aris Bishop MD [address] [place] [address] PCP - General Family Medicine 03/19/23 Crew Leader/Control Room Operator Relationship Specialty Start Date End Date Aris Bishop MD [address] [facility] [place] [address] PCP - General Family Medicine 03/19/23 Team Status: Active Member Role Status Dates Aris Bishop MD Primary Care Provider Active Team Status: Inactive Member Role Status Dates Migdalia Crystal DO Attending Provider Active Sta rt: January 14, 2025 End: January 14, 2025 Aris Bishop MD Primary Care Provider Active Start: January 14, 2025 End: January 14, 2025 Crew Leader/Control Room Operator Relationship Specialty Start Date End Date Aris Bishop MD [address] [place] [facility] [place] [address] PCP - General Family Medicine 03/19/23 Reason for Visit (unrecogniz ed section and content) Reason Comments 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 Pt relates having lichens planus and is now localized to right foot, pt relates very itchy. Reason Comments Well Women Visit Reason Comments Pain Reason Comments Follow-up Reason Comments Pain Reason Onset Date Comments change appt 08/28/2024 Goals (unrecognized section and content) Goals may be documented in a n alternate section FOR RECORDS PERTAINING TO PATIENTS WHO ARE [...] BE BASED ON THE PRIMARY CLINICAL RECORDS. [facility] [employer] [employer] [facility]. provides no warranty or guarantee of the accuracy or completeness of information in this document.
--- OUTSIDE RECORDS SUMMARY | 2025-01-24 12:37 | XMS_ITS | Encounter Summary ---
Author Organization [facility] Address [address] [place] [address] Care Team Providers Care Director Client Services Name Role Phone Aris Bishop MD Primary Care Provider [phone] Encounter Details Date Type Department Care Team (Late st Contact Info) Description 03/05/2023 Abstract [facility] [address] [place] [address] Helder Tang, DO [address] [place] [address] Dr Shae [place], [facility] Social History Tobacco Use Types Packs/Day Years Used Date Smoking Tobacco: Every Day Cigarettes Tobacco Cessation:Ready to Q uit: Yes; Counseling Given: Not Answered Comments:Patient started smoking [...] Description 04/15/2025 2:00 PM EST Office Visit [facility] [address] [place] [address] Helder Tang DO [address] [facility] [address] [place], [place] [id number] documented as of this encounter Visit Diagnoses Not on filedocumented in this encounter Care Teams Director Client Services Relationship Specialty Start Date End Date Aris Bishop MD [address] [facility] [place] [address] PCP - General Family Medicine 03/19/23 documented as of this encounter
--- OUTSIDE RECORDS SUMMARY | 2025-01-24 12:37 | XMS_ITS | Patient Health Record ---
Author Organization [facility] in [place] Address [address] [place] [address] Care Team Providers Care Driver Name Role Phone Denis Bishop Primary Care Provider Allergies No Known Allergies Results Component Value Reference Range Notes SGOT Reviewed date:03/23/2024 11:43:48 AM Interpretation: Performing Lab: Notes/Report: [facility] , Aspartate Amino Transferase 15 15-37 U/L Performing Lab: see note ML - [facility] LB SGPT Reviewed date:03/23/2024 11:43:48 AM Interpretation: Performing Lab: Notes/Report: [facility] , Alanine Aminotransferase 16 14-59 U/L Performing Lab: see note ML - [facility] LB IGP,Aptima HPV,Age Gdln Reviewed date:04/06/2024 02:18:27 PM Interpretation: Performing Lab: Notes/Report: BRUSH-SPATULA CERVIX ENDOCERVIX [facility] , Age Gdln ACOG Testing Note . ---- No. of containers..01 ThinPrep Vial Source.............Cervix;En docervix Lesley Metz MD, Age Algo ACOG [place]... 30-65 01 Performed at: L-Low Normal,H-High Normal,LL-Alert Low,HH-Alert High FLAG LEGEND: ---- TESTS RESULT FLAG UNITS REF RANGE LAB <-Panic Low,>-Panic High,A-Abnormal,AA-Critical Abnormal ---- 01 [facility] Clin[facility] Provided Cytology Information [address] [place] [address] IGP, Aptima HPV, rfx 16/18,45 Note . Criteria not met, HPV Genotype not performed. L-Low Normal,H-High Normal,LL-Alert Low,HH-Alert High Specimen adequacy: 02 The Pap smear is a screening test designed to aid in the Suggest follow up as clinically appropriate. Test Methodology: Note 02 Jody Merino, Line Tender [place] (ASCP) DIAGNOSIS: [A] 02 should not be used as the sole means of detecting cervical Recommendation: [A] 02 cells (endocervical component) are present. uterine cervix. It is not a diagnostic procedure and occur. ---- This liquid based ThinPrep(R) pap test was screened with R87.610 Performed at: Performed by: 02 Keren Jarrell MD, Pathologist Lesley Metz MD, Electronically si... 02 ---- EPITHELIAL CELL ABNORMALITY. Pathologist ICD10: 02 HPV Genotype Reflex Note 02 FLAG LEGEND: Note: Note 02 [address] [place] [address] 02 [facility] . 02 the use of an image guided system. ATYPICAL SQUAMOUS CELLS OF UNDETERMINED SIGNIFICANCE (ASC-US). ---- <-Panic Low,>-Panic High,A-Abnormal,AA-Critical Abnormal Satisfactory for evaluation. Endocervical and/or squamous metaplastic detection of premalignant and malignant conditions of the TESTS RESULT FLAG UNITS REF RANGE LAB cancer. Both false-positive and false-negative reports do HPV Aptima Negative Negative Sash Finisher: Lesley Metz MD, Phone: [phone] Sash Finisher: Lesley Metz MD, Phone: [phone] [address], [place] [id number] risk HPV types (16,18,31,33,35,39,45,51,52, 56,58,59,66,68) without differentiation. This nucleic acid amplification test detects fourteen high- [address], [place] [id number] Performed at: =[facility] Performed at: [facility] Performing Lab: see note [facility] LB CBC AUTO DIFF Reviewed date:10/05/2024 10:52:43 PM Interpretation: Performing Lab: Notes/Report: [facility] , White Blood Count 9.4 4.0-11.0 10 3/uL Red Blood Count 4.60 4.20-5.40 10 6/uL Hemoglobin 14.2 12.0-16.0 g/dL Hematocrit 43.0 36.0-48.0 % Mean Corpuscular Volume 93.5 81.0-99.0 fL Mean Corpuscular Hemoglobin 30.9 26.7-34.0 pg Mean Corpuscular HGB Conc 33.0 29.9-35.2 g/dL Red Cell Distribution Width 15.2 11.0-15.0 % Platelet Count 251 150-450 10 3/uL Mean Platelet Volume 9.7 9.5-13.5 fL Neutrophils Percent Auto 66.0 43.0-75.0 % Lymphocytes Percent Auto 24.2 20.5-60.0 % Monocytes Percent Auto 7.9 1.7-12.0 % Eosinophils Percent Auto 1.1 0.9-7.0 % Basophils Percent Auto 0.4 0.2-2.0 % Immature Granulocytes Pct Auto 0.4 0.0-0.5 % Neutrophils Absolute Auto 6.2 1.4-6.5 10 3/uL Lymphocytes Absolute Auto 2.3 1.2-3.8 10 3/uL Monocytes Absolute Auto 0.7 0.3-0.8 10 3/uL Eosinophils Absolute Auto 0.1 0.0-0.7 10 3/uL Basophils Absolute Auto 0.0 0.0-0.1 10 3/uL Immature Granulocytes Abs Auto 0.04 0.00-0.03 10 3/uL Performing Lab: see note ML - [facility] FREE T3 Reviewed date:10/05/2024 10:52:43 PM Interpretation: Performing Lab: Notes/Report: [facility] , Free T3 2.62 2.18-3.98 pg/mL Performing Lab: see note ML - [facility] LB GLYCOHEMOGLOBIN A1C Reviewed date:10/05/2024 10:52:43 PM Interpretation: Performing Lab: Notes/Report: [facility] , Glycohemoglobin A1C 5.8 4.5-6.2 % ADA RECOMMENDED LIMIT 4.0 - 6.0 ADA THERAPEUTIC TARGET < 7.0 > 7.0 ACTION SUGGESTED Estimated Average Glucose 120 Performing Lab: see note ML - [facility] LB LIPID PROFILE Reviewed date:10/05/2024 10:52:43 PM Interpretation: Performing Lab: Notes/Report: [facility] , Triglycerides 129 <=150 mg/dL Cholesterol 239 <=200 mg/dL HDL Cholesterol 52 40-60 mg/dL <40 mg/dl - HIGH CARDIOVASCULAR RISK > or =60 mg/dl - LOW CARDIOVASCULAR RISK LDL Cholesterol Calculated 162.0 <100 mg/dl OPTIMAL 160-189 mg/dl HIGH 130-159 mg/dl BORDERLINE HIGH 100-129 mg/dl NEAR OR ABOVE OPTIMAL >190 mg/dl VERY HIGH VLDL CHOLESTEROL 25.8 Chol HDL Ratio 4.6 4.4 - 7.1 AVERAGE RISK 3.3 - 4.4 LOW RISK >11.0 HIGH RISK 7.1 - 11.0 MODERATE RISK Performing Lab: see note ML - [facility] PROF 14(COMP METB) Reviewed date:10/05/2024 10:52:43 PM Interpretation: Performing Lab: Notes/Report: [facility] , Sodium 139 136-145 mmol/L Potassium 4.1 3.5-5.1 mmol/L Chloride 104 98-107 mmol/L Carbon Dioxide 30.6 21.0-32.0 mmol/L Anion Gap 8.5 Glucose 117 74-106 mg/dL Blood Urea Nitrogen 14.0 7.0-18.0 mg/dL Creatinine 0.98 0.55-1.02 mg/dL Estimated GFR ( Amalia >60 >=60 mL/min/1.73m 2 Estimated GFR (Non- Rosario >60 >=60 mL/min/1.73m 2 BUN Creatinine Ratio 14.3 Calcium 9.1 8.5-10.1 mg/dL Bilirubin Total 0.5 0.2-1.0 mg/dL Aspartate Amino Transferase 15 15-37 U/L Alanine Aminotransferase 19 14-59 U/L Alkaline Phosphatase 102 46-116 U/L Total Protein 7.4 6.4-8.2 g/dL Albumin Level 3.4 3.4-5.0 g/dL Globulin 4.0 Albumin Globulin Ratio 0.9 Performing Lab: see note ML - [facility] T4 Reviewed date:10/05/2024 10:52:43 PM Interpretation: Performing Lab: Notes/Report: [facility] , T4 Thyroxine 8.00 4.80-13.90 ug/dL Performing Lab: see note ML - [facility] TSH Reviewed date:10/05/2024 10:52:43 PM Interpretation: Performing Lab: Notes/Report: [facility] , Thyroid Stimulating Hormone 1.334 0.358-3.740 u IU/mL Performing Lab: see note ML - [facility] Reason For Referral No Information Medications Medication SIG (Take, Route, Frequency, Duration) Notes Start Date End Date Status Coreg 25 MG 1 tablet with food O rally Twice a day for 30 days Active hydroCHLOROthiazide 25 MG TAKE 1 TABLET BY MOUTH EVERY DAY IN THE MORNING FOR 30 DAYS for 30 Active Social History Tobacco Use: Social History Observation Description Date Details (start date - stop date) Current Smoker 01/19/2000 - NA Tobacco Control (Standard) Question Answer Notes Tobacco use: Current smoker When did you start smoking? 01/19/2000 How many cigarettes a day do you smoke? 21-30 AUDIT-C (Standard) Question Answer Notes Did you have a drink contain ing alcohol in the past year? Yes How often did you have a dri nk containing alcohol in the past year? Monthly or less (1 point) How many drinks did you have on a typical day when you were drinking in the past year? 3 or 4 drinks (1 point) How often did you have six o r more drinks on one occasion in the past year? 4 or more times a week (4 points) Points 6 Interpretation Positive Problems Problem Type SNOMED Code ICD Code Onset Dates Problem Status W/U Status Risk Notes Problem Hyperlipidemia (81297556) Hyperlipidemia (E78.5) Active confirmed Problem Hypertension (12595405) Hypertension (I10) Active confirmed Vital Signs Blood pressure diastolic 104 mm Hg 09/18/2024 Height 69 in 09/18/2024 Blood pressure systolic 170 mm Hg 09/18/2024 Weight 195 lbs 09/01/2024 BMI 28.79 kg/m2 09/01/2024 Encounters Encounter Location Date Provider Diagnosis [facility] [address] [place] [address] 09/01/2024 Denis Hoy Hypertension I10 [facility] [address] [place] [address] 09/04/2024 Denis Hoy Hypertension I10 [facility] [address] [place] [address] 09/18/2024 Denis Hoy Hypertension I10 [facility] [address] [place] [address] 10/05/2024 Denis Hoy Hyperlipidemia E78.5 [facility] [address] [place] [address] 09/04/2024 Denis Hoy Hypertension I10 [facility] [address] [place] [address] 09/18/2024 Denis Hoy Assessments Encounter Date Diagnosis (ICD Code) Assessment Notes Treatment Notes Treatment Clinical Notes Section Notes 09/01/2024 Hypertension (ICD-10 - I10) 09/04/2024 Hypertension (ICD-10 - I10) 09/04/2024 Hypertension (ICD-10 - I10) 09/18/2024 Hypertension (ICD-10 - I10) 10/05/2024 Hyperlipidemia (ICD-10 - E78.5) 09/01/2024 Other Continue taking medications as prescribed and monitor BP at home regularly. Plan Of Treatment Pending Test Test Name Order Date COMPREHENSIVE METABOLIC PROFILE WITH GFR 09/18/2024 CBC W/AUTO DIFF 09/18/2024 GLYCOHEMOGLOBIN A1C 09/18/2024 THYROID PANEL (T4/TSH/FREE T3) Lipid Panel 09/18/2024 Lipid Panel 10/05/2024 Insurance Providers Payer Name Payer Address Payer Phone Subscriber Number Group Number Insured Name Patient Relationship to Insured Coverage Start Date Coverage End Date [employer] [place] [employer] [address] [address] [place] [address] [id number] Carly Ventura Self - patient is the insured
[2025-01-24 13:21] LABS: Hematocrit 42.1 % (36.0-48.0); Hemoglobin 14.1 g/dL (12.0-16.0); Immature Granulocytes Abs Auto 0.05 10^3/uL (0.00-0.03); Immature Granulocytes Pct Auto 0.6 % (0.0-0.5); Lymphocytes Absolute Auto 3.0 10^3/uL (1.2-3.8); Mean Corpuscular HGB Conc 33.5 g/dL (29.9-35.2); Mean Corpuscular Hemoglobin 32.8 pg (26.7-34.0); Mean Corpuscular Volume 97.9 fL (81.0-99.0); Platelet Count 278 10^3/uL (150-450); Red Blood Count 4.30 10^6/uL (4.20-5.40); White Blood Count 9.0 10^3/uL (4.0-11.0)
[2025-01-24 13:45] LABS: Thyroid Stimulating Hormone 2.240 uIU/mL (0.358-3.740)
== END 2025-01-24 12:31 | disposition home or self-care (01) ==
PROVIDERS: PCP Family Medicine; Visit Provider Nurse Practitioner Family
DX: N91.2 Amenorrhea, unspecified (principal); D25.9 Leiomyoma of uterus, unspecified
CPT/HCPCS: 36415; 76830; 76856; 83036; 84146; 84443; 84702; 85025

== ENCOUNTER 2025-02-11 06:43 | Outpatient (OUT) | payer BC, SELFPAY ==
--- NOTE | 2025-02-11 06:46 | MR_ITS ---
The [address] [address] Patient Name: SUSAN LENTZ MRN: [id number] date: 1985 Sex: F Assigned Patient Location: MRI Current Patient Location: MRI Accession/Order Number: [id number] Exam Date: 02/11/2025 07:00 Report Date: 02/11/2025 09:42 At the request of: KHADRA COX DO Procedure: MR pituitary wo/w con MR pituitary wo/w con 02/11/2025 7:51 AM SIGN AND SYMPTOMS: ^ELEVATED PROLACTIN LEVELS PROTOCOL: Multiplanar multisequence MR images of the brain with and without IV contrast CONTRAST: 18 mL of intravenous Dotarem COMPARISON: None. FINDINGS: Extra axial spaces: Age appropriate. Hemorrhage: None. Ventricular system: Within normal limits. Basal cisterns: Within normal limits and not effaced. Cerebral parenchyma: Normal in signal. Midline shift: None.. Cerebellum: Within normal limits. Brainstem: Within normal limits. OTHER: Calvarium: Normal marrow signal. Vascular system: Satisfactory flow voids within the anterior and posterior circulation. Visualized Paranasal sinuses: Within normal limits. Visualized Orbits: Within normal limits. Visualized upper cervical spine: Within normal limits. Sella and skull base: Centered to the right of midline within the sella is a 9 x 8 x 6 mm area of hypoenhancement changes accompanying T1 hyperintense signal layering dependently on precontrast T1 images. This is most consistent with a pituitary microadenoma possibly complicated by proteinaceous debris or previous hemorrhage. The pituitary stalk is deviated to the left midline as a result. MR/MR pituitary wo/w con IMPRESSION: Centered to the right of midline within the sella is a 9 x 8 x 6 mm area of hypoenhancement changes accompanying T1 hyperintense signal layering dependently on precontrast T1 images. This is most consistent with a pituitary microadenoma possibly complicated by proteinaceous debris or previous hemorrhage. No acute intracranial pathology or abnormal postcontrast enhancement is noted otherwise. Impression dictated by: Jones Diallo M.D. 02/11/2025 9:42 AM Dictation Location: [place] [address] Electronically authenticated by: [id number] Y Date: 02/11/2025 09:42
--- OUTSIDE RECORDS SUMMARY | 2025-02-11 06:46 | XMS_ITS | CCD ---
Author Organization [facility] Care Team Providers Care Patient Experience Coordinator Name Role Phone KITTY, DR GAVIRIA Attending Unavailable KITTY, DR GAVIRIA Consulting Unavailable KITTY, DR GAVIRIA Admitting Unavailable COLBY ., DR MAIN Primary Care Unavailable Aris Bishop MD Primary Care Provider [phone] Migdalia Crystal DO Attending Provider [phone] Aris Bishop MD Primary Care Provider [phone] Aris Bishop MD Primary Care Provider [phone] JOHN CEJA Attending Unavailable JOHN CEJA Referring Unavailable NO PCP, NO PCP Primary Care Unavailable JOHN CEJA Referring Unavailable NO PCP, NO PCP Primary Care Unavailable VERCARRI, SYD Jaffe Attending Unavailable JOHN CEJA Referring Unavailable NO PCP, NO PCP Primary Care Unavailable VERHOFF, SYD N Attending Unavailable VERHOFF, SYD N Referring Unavailable NO PCP, NO PCP Primary Care Unavailable VERHOFF, SYD N Attending Unavailable HERRERA, MALIE E Referring Unavailable NO PCP, NO PCP [...] NO PCP Primary Care Unavailable JOHN CEJA Attending Unavailable JOHN CEJA [...] TANG Attending Unavailable KHADRA TANG Attending Unavailable KHADRA TANG Attending Unavailable Allergies Allergy Classification Reported Allergen(s) Allergy Type Date of Onset Reaction(s) Facility (3 sources) Codeine; Translations: [CODEINE] Drug Allergy 5 The [facility] Repository (20 sources) Codeine Drug Allergy 3 Unknown [facility] Healthcare Work Phone: (20 sources) Prednisone Allergy to substance 3 Other [facility] Healthcare (20 sources) Wound Dressing Adhesive Drug Allergy 3 Rash [facility] Healthcare (1 source) Adhesive agent; Translations: [ADHESIVE] Propensity to adverse reactions to drug (disorder) 5 [facility] Repository Medications Current Medications Medication Drug Class(es) Dates Sig (Normalized) Sig (Original) carvedilol 12.5 mg oral tablet (7 sources) alpha-Adrenergic Efra, beta-Adrenergic Efra Start: 5 take 1 tablet by mouth in the morning carvedilol (Coreg) 12.5 MG tablet Take 12.5 mg by mouth in the morning and 12.5 mg in the evening. Take with meals. 09/04/2024 Active hydroCHLOROthiazide 25 mg oral tablet (7 sources) Thiazide Diuretic take 1 tablet by mouth once daily hydroCHLOROthiazide (HYDRODiuril) 25 MG tablet Take 25 mg by mouth Daily Active medroxyPROGESTERone acetate 10 mg oral tablet (2 sources) Progestin Start: 5 End: 6 take 1 tablet by mouth once daily medroxyPROGESTERone (Provera) 10 MG tablet Indications: Amenorrhea Take 1 tablet (10 mg) by mouth Daily Take 1 tablet by mouth daily for 7 days beginning on day 16 of the menstrual cycle. 14 tablet 3 02/04/2025 02/04/2026 Active meloxicam 15 mg oral tablet (9 sources) Nonsteroidal Anti-inflammator y Drug Start: take 1 tablet by mouth once daily meloxicam (Mobic) 15 MG tablet Take 15 mg by mouth Daily 01/28/2025 Active Start: 01-17-2025 End: 02-04-2025 take 1 tablet by mouth once daily meloxicam (Mobic) 7.5 MG tablet Take 7.5 mg by mouth Daily 01/17/2025 02/04/2025 Discontinued (Other) 24 hr metFORMIN hydrochloride 500 mg extended release oral tablet (2 sources) Biguanide Start: 02-04-2025 End: 02-04-2026 take 1 tablet by mouth every twenty-four hours at mealtime metFORMIN XR (Glucophage-XR) 500 MG 24 hr tablet Indications: Insulin resistance Take 1 tablet (500 mg) by mouth in the evening. Take with meals Do not crush, chew, or split. 30 tablet 11 02/04/2025 02/04/2026 Active terbinafine 250 mg oral tablet (6 sources) Allylamine Antifungal Start: 03-24-2024 End: 06-22-2024 take 1 tablet by mouth once daily terbinafine (LamISIL) 250 MG tablet Indications: Onychomycosis Take 1 tablet (250 mg) by mouth Daily 90 tablet 03/24/2024 06/22/2024 Active Completed/Discontinued Medications Medication Drug Class(es) Dates Sig (Normalized) Sig (Original) celecoxib 200 mg oral capsule (19 sources) Nonsteroidal Anti-inflammatory Drug Start: End: take 1 capsule by mouth once daily celecoxib (CeleBREX) 200 MG capsule Indications: Acute pain of left shoulder , Scapular dyskinesis Take 1 capsule (200 mg) by mouth Daily 30 capsule 1 07/02/2024 08/26/2024 Discontinued (Therapy completed) cyclobenzaprine hydrochloride 10 mg oral tablet (7 sources) Muscle Relaxant Start: End: take 1 tablet by mouth three times daily as needed for muscle spasms cyclobenzaprine (Flexeril) 10 MG tablet Take 10 mg by mouth 3 (three) times a day as needed for muscle spasms 01/17/2025 02/04/2025 Discontinued (Other) methylPREDNISolone (6 sources) Corticosteroid Start: End: methylPREDNISolone (Medrol Dospak) 4 MG tablets Indications: Lichen planus Take as directed on package. 21 tablet 03/19/2024 03/25/2024 Discontinued Start: 03-19-2024 methylPREDNISo lone (Medrol Dospak) 4 MG tablets Indications: Lichen planus Take as directed on package. 21 tablet 03/19/2024 Active Problems Active Problems Problem Classification Problem Date Documented Date Episodic/Chronic Administrative/social admission (2 sources) Patient encounter status; Translations: [Person consulting for explanation of examination or test findings] 02-04-2025 Episodic Malaise and fatigue (2 sources) Fatigue; Translations: [Other fatigue] 03-25-2024 Episodic Menstrual disorders (6 sources) Amenorrhea; Translations: [Amenorrhea, unspecified] 02-04-2025 Chronic Mycoses (5 sources) Onychomycosis; Translations: [Tinea unguium] 03-19-2024 Episodic Other and unspecified benign neoplasm (2 sources) Leiomyoma; Translations: [Benign neoplasm of connective and other soft tissue, unspecified] 02-04-2025 Episodic Other connective tissue disease (2 sources) [...] in joint, shoulder region] 07-02-2024 Episodic Other nutritional; endocrine; and metabolic disorders (2 sources) Insulin resistance; Translations: [Insulin resistance] 02-04-2025 Chronic Spondylosis; intervertebral disc disorders; other back problems (3 sources) Spondylosis without myelopathy or radiculopathy, cervical region; Translations: [Thoracic spondylosis without myelopathy] Onset: 10-01-2024 Chronic Spondylosis; intervertebral disc disorders; other back problems (10 sources) Acute thoracic back pain; Translations: [Pain [...] Test Name Value Interpretation Reference Range Facility ALL CBC WITH AUTO DIFFon BASOPHILS ABSOLUTE AUTO [address] [facility] Basophils/100 WBC (Bld) 0.4 % 0.2 - 2.0 % [facility] Eosinophils/100 WBC (Bld) 1.7 % 0.9 - 7.0 % [facility] Erythrocyte distribution width (RBC) [Ratio] 15.7 % High 11.0 - 15.0 % [facility] Hematocrit (Bld) [Volume fraction] 42.1 % 36.0 - 48.0 % [facility] Hemoglobin (Bld) [Mass/Vol] 14.1 g/dL 12.0 - 16.0 g/dL [facility] IMMATURE GRANULOCYTES ABS AUTO 0.05 High [facility] Immature granulocytes/100 WBC (Bld) 0.6 % High 0.0 - 0.5 % [facility] Interpretation and review of laboratory results Abnormal [facility] LYMPHOCYTES ABSOLUTE AUTO 3 [facility] Lymphocytes/100 WBC (Bld) 33.1 % 20.5 - 60.0 % [facility] MCH (RBC) [Entitic mass] 32.8 pg 26.7 - 34.0 pg [facility] MCHC (RBC) [Mass/Vol] 33.5 g/dL 29.9 - 35.2 g/dL [facility] MCV (RBC) [Entitic vol] 97.9 fL 81.0 - 99.0 fL [facility] MONOCYTES ABSOLUTE AUTO 0.7 N [facility] Monocytes/100 WBC (Bld) 7.7 % 1.7 - 12.0 % [facility] NEUTROPHILS ABSOLUTE AUTO 5.1 [facility] Neutrophils/100 WBC (Bld) 56.5 % 43.0 - 75.0 % [facility] Platelet mean volume (Bld) [Entitic vol] 9.8 fL 9.5 - 13.5 fL [facility] EO # 0.2 [facility] PLT 278 [facility] RBC 4.3 [facility] WBC 9 [facility] US PELVIS W/ TRANSVAGINALon 01-24-2025 [place] [address] Ultrasound Report Signed Patient: CARLY LENTZ MR#: [id number] : 1985 Acct:[id number] Age/Sex: 39 / F ADM Date: 01/24/25 Loc: US Attending Dr: Annette Davis Ordering Physician: Annette Davis Date of Service: 01/24/25 Procedure(s): US pelvis w/ transvaginal Accession Number(s): [id number] cc: Annette aDvis; Aris Bishop M.D. [address] [address] Patient Name: CARLY LENTZ MRN: [id number] date: 1985 Sex: F Assigned Patient Location: US Current Patient Location: US Accession/Order Number: [id number] Exam Date: 01/24/2025 13:58 Report Date: 01/24/2025 14:57 At the request of: ANNETTE DAVIS Procedure: US pelvis w/ transvaginal Pelvic ultrasound. Reason for exam: Hematuria. Comparison: none Technique: Transabdominal imaging of the uterus and ovaries was performed. Transvaginal imaging of the uterus and ovaries was also obtained. Additional spectral Doppler analysis of the ovaries was also obtained. Findings: Uterus measures 6.9 x 3.1 x 3.3 cm. Endometrium measures 4.3 mm without focal abnormality. Fibroid involving the anterior fundus measuring 1.7 x 1.5 x 1.4 cm. Right ovary measures 2.3 x 1.9 x 2.0 cm. Left ovary measures 1.6 x 1.5 x 1.8 cm. Normal arterial and venous Doppler waveforms. No adnexal mass or cyst. US/US pelvis w/ transvaginal Impression: Fibroid uterus. Unremarkable endometrium and ovaries. Impression dictated by: Abhinav Grullon Jr., Hua 01/24/2025 2:57 PM Dictation Location: [place] [address] Electronically authenticated by: [id number] Y Date: 01/24/2025 14:57 Dictated By: Abhinav Grullon M.D. Signed By: 01/24/25 1500 DD/ 1457 TD/TT: Audio/Video Engineer: [facility] Radiology, Radiologist, MD - 01/24/2025 [place] [address] Ultrasound Report Signed Patient: CARLY LENTZ MR#: [id number] : 1985 Acct:[id number] Age/Sex: 39 / F ADM Date: 01/24/25 Loc: US Attending Dr: Annette Davis Ordering Physician: Annette Davis Date of Service: 01/24/25 Procedure(s): US pelvis w/ transvaginal Accession Number(s): [id number] cc: Annette Davis; Aris Bishop M.D. The [address] [address] Patient Name: CARLY LENTZ MRN: [id number] date: 1985 Sex: F Assigned Patient Location: US Current Patient Location: US Accession/Order Number: [id number] Exam Date: 01/24/2025 13:58 Report Date: 01/24/2025 14:57 At the request of: ANNETTE DAVIS Procedure: US pelvis w/ transvaginal Pelvic ultrasound. Reason for exam: Hematuria. Comparison: none Technique: Transabdominal imaging of the uterus and ovaries was performed. Transvaginal imaging of the uterus and ovaries was also obtained. Additional spectral Doppler analysis of the ovaries was also obtained. Findings: Uterus measures 6.9 x 3.1 x 3.3 cm. Endometrium measures 4.3 mm without focal abnormality. Fibroid involving the anterior fundus measuring 1.7 x 1.5 x 1.4 cm. Right ovary measures 2.3 x 1.9 x 2.0 cm. Left ovary measures 1.6 x 1.5 x 1.8 cm. Normal arterial and venous Doppler waveforms. No adnexal mass or cyst. US/US pelvis w/ transvaginal Impression: Fibroid uterus. Unremarkable endometrium and ovaries. Impression dictated by: Abhinav Grullon Jr., D.O. 01/24/2025 2:57 PM Dictation Location: [place] [address] Electronically authenticated by: [id number] Y Date: 01/24/2025 14:57 Dictated By: Abhinav Grullon M.D. Signed By: 01/24/25 1500 DD/ 1457 TD/TT: Audio/Video Engineer: [facility] Radiology Study observation (narrative) [facility] US PELVIS W/ TRANSVAGINALOrd ered By: Radiologist Radiology on 01-24-2025 [facility] Work Phone: XR SPINE CERVICAL 3 VWS OR L [...] Cantor MD on 12/17/2024 9:41 AM Normal [facility] MR THORACIC SPINE WO CONTon 09-28-2024 MR [...] Obrien MD on 09/28/2024 12:18 AM Normal [facility] MR SHOULDER LT WO CONTon MR SHOULDER [...] abnormality. IMPRESSION: * Minimal thickening/edema of the subacromial/subdeltoi d bursa. No fluid in the bursa. * Otherwise unremarkable MRI of the left shoulder. No discrete rotator cuff tear. Approved by Resident Clint Sanchez DO on 08/25/2024 1:07 PM ICliff MD have personally reviewed the image(s) and agree with and/or edited the report Finalized by Cliff Cantor MD on 08/25/2024 1:20 PM Normal [facility] XR SPINE THORACIC 2 VWSon XR SPINE THORACIC 2 VWS XR SPINE THORACI C 2 VWS EXAM: XR SPINE THORACIC 2 [...] Obrien MD on 08/24/2024 2:43 PM Normal [facility] XR Shoulder - left 2 [facility] 07-02-2024 Imaging Result: AP and Scap Y Left shoulder: No acute fracture or dislocation Minimal degenerative changes AC joint Visualized lung kingsley unremarkable Glenohumeral joint well aligned Impression: no acute process left shoulder [facility] Radiology Study observation (narrative) [facility] IGP,APTIMA HPV,AGE GDLNon AGE GDLN ACOG TESTING Note . [facility] Comment on above: TESTS RESULT FLAG UN ITS REF RANGE LAB Clinician Provided Cytology Information Source.............Cervix;Endocervix No. of containers..01 ThinPrep Vial Age Algo ACOG Juana... 30-65 01 FLAG LEGEND: L-Low Normal,H-High Normal,LL-Alert Low,HH-Alert High <-Panic Low,>-Panic High,A-Abnormal,AA-Critical Abnormal Performed at: 01 =G [address] [address] Lesley Metz MD, HPV APTIMA Negative Negative [facility] Comment on above: This nucleic acid am plification test detects fourteen high- risk HPV types (16,18,31,33,35,39,45,51,52,56,58,59,66,68) without differentiation. Performed at: =G - [facility] [place] [place] [address] [place], [place] [id number] Medical Nurse: Lesley Metz MD, Phone: [phone] Performed at: WB - [facility] [place] [address] [facility], [place] [id number] Medical Nurse: Lesley Metz MD, Phone: [phone] IGP, APTIMA HPV, RFX 16/18,45 Note Abnormal . [facility] Comment on above: TESTS RESULT FLAG U NITS REF RANGE LAB DIAGNOSIS: [A] 02 EPITHELIAL CELL ABNORMALITY. ATYPICAL SQUAMOUS CELLS OF UNDETERMINED SIGNIFICANCE (ASC-US). Recommendation: [A] 02 Suggest follow up as clinically appropriate. Specimen adequacy: 02 Satisfactory for evaluation. Endocervical and/or squamous metaplastic cells (endocervical component) are present. Performed by: 02 Jody Merino, Dead Mail Checker (ASCP) Electronically si... 02 Keren Jarrell MD, [...] <-Panic Low,>-Panic High,A-Abnormal,AA-Critical Abnormal Performed at: [address] [facility] [place] [address] Lesley Metz MD, Interpretation and review of laboratory results Abnormal [facility] BRUSH-SPATULA CERVIX ENDOCERVIX [facility] ALL CBC WITH AUTO DIFFon BASOPHILS ABSOLUTE AUTO 0.[address] [facility] Basophils/100 WBC (Bld) 0.5 % 0.2 - 2.0 % [facility] Eosinophils/100 WBC (Bld) 1.7 % 0.9 - 7.0 % [facility] Erythrocyte distribution width (RBC) [Ratio] 13.9 % 11.0 - 15.0 % [facility] Hematocrit (Bld) [Volume fraction] 42.5 % 36.0 - 48.0 % [facility] Hemoglobin (Bld) [Mass/Vol] 13.8 g/dL 12.0 - 16.0 g/dL [facility] IMMATURE GRANULOCYTES ABS AUTO 0.07 High [facility] Immature granulocytes/100 WBC (Bld) 0.7 % High 0.0 - 0.5 % [facility] Interpretation and review of laboratory results Abnormal [facility] LYMPHOCYTES ABSOLUTE AUTO 2.6 [facility] Lymphocytes/100 WBC (Bld) 25.5 % 20.5 - 60.0 % [facility] MCH (RBC) [Entitic mass] 31 pg 26.7 - 34.0 pg [facility] MCHC (RBC) [Mass/Vol] 32.5 g/dL 29.9 - 35.2 g/dL [facility] MCV (RBC) [Entitic vol] 95.5 fL 81.0 - 99.0 fL [facility] MONOCYTES ABSOLUTE AUTO 0.[address] [facility] Monocytes/100 WBC (Bld) 7.9 % 1.7 - 12.0 % [facility] NEUTROPHILS ABSOLUTE AUTO 6.5 [facility] Neutrophils/100 WBC (Bld) 63.7 % 43.0 - 75.0 % [facility] Platelet mean volume (Bld) [Entitic vol] 9.9 fL 9.5 - 13.5 fL [facility] TB EO # 0.2 [facility] TB PLT 233 [facility] RBC 4.45 [facility] WBC 10.2 [facility] AST AND Marcus 03-24-2024 [facility] Cytology Cervical or vaginal smear or scraping studyOrdered By: Herlinda Saenz on 10-08-2023 [facility] PAP ACOG PANEL 2: 30 to 65on 03-23-2022 . . Normal [facility] Comment on above: Result Comment: Perf ormed at: WB Performed By: #### [id number] #### [facility] [address] [place] [address] [address] Douglas Stout Age Gdln ACOG Testing 30-65 [facility] Comment on above: Performed By: #### [id number] #### [facility] [address] [place] [address] [address] Douglas Stout DIAGNOSIS: Comment Normal [facility] Comment on above: Result Comment: NEGA TIVE FOR INTRAEPITHELIAL LESION OR MALIGNANCY. Performed at: WB Performed By: #### [id number] #### [facility] [address] [place] [address] [address] Douglas Stout HPV Aptima Negative Normal Negative [facility] Comment on above: Result Comment: This nucleic acid amplification test detects fourteen high-risk HPV types (16,18,31,33,35,39,45,51,52,56,58,59,66,68) without differentiation. Performed at: =G Performed By: #### [id number] #### [facility] [address] [place] [address] [address] Douglas Stout HPV Genotype Reflex Comment Normal [facility] Comment on above: Result Comment: Crit eria not met, HPV Genotype not performed. Performed at: WB Performed By: #### [id number] #### [facility] [address] [place] [address] [address] Douglas Stout Methodology: Comment Normal [facility] Comment on above: Result Comment: This liquid based ThinPrep(R) pap test was screened with the use of an image guided system. Performed at: WB Performed By: #### [id number] #### [facility] [address] [place] [address] [address] Douglas Stout Note: Comment Normal [facility] Comment on above: Result Comment: The Pap smear is a screening test designed to aid in the detection of premalignant and malignant conditions of the uterine cervix. It is not a diagnostic procedure and should not be used as the sole means of detecting cervical cancer. Both false-positive and false-negative reports do occur. . Performed at: WB Performed By: #### [id number] #### [facility] [address] [place] [address] [address] Douglas Stout Performed by: Comment Normal [facility] Comment on above: Result Comment: Nicolette Raza, Dead Mail Checker (ASCP) Performed at: WB Performed By: #### [id number] #### [facility] [address] [place] [address] Dr. Douglas Stout Specimen adequacy: Comment Normal [facility] Comment on above: Result Comment: Sati sfactory for evaluation. Endocervical and/or squamous metaplastic cells (endocervical component) are present. Performed at: WB Performed By: #### [id number] #### [facility] [address] [place] [address] Dr. Douglas Stout Vital Signs Date Time Vital Sign Value Performing Clinician Abel akiser 02-04-2025 13:00-0400 Body mass index (BMI) [Ratio] 28.81 kg/m2 Invesdor DO Work Phone: [facility] 02-04-2025 13:00-0400 Body weight 88.51 kg Invesdor DO Work Phone: [facility] 02-04-2025 13:00-0400 Diastolic blood pressure 76 mm[Hg] Teamleader Work Phone: [facility] 02-04-2025 13:00-0400 Systolic blood pressure 116 mm[Hg] Teamleader Work Phone: [facility] 01-21-2025 15:27-0400 Body mass index (BMI) [Ratio] 28.8 kg/m2 Khadra Kitty DO Work Phone: [facility] 01-21-2025 15:27-0400 Body weight 88.45 kg Kharda Kitty DO Work Phone: [facility] 01-21-2025 15:27-0400 Diastolic blood pressure 76 mm[Hg] Khadra Kitty DO Work Phone: [facility] 01-21-2025 15:27-0400 Systolic blood pressure 120 mm[Hg] Khadra Kitty DO Work Phone: [facility] 03-25-2024 14:24-0500 Body height 175.3 cm Khadra Kitty DO Work Phone: [facility] 03-25-2024 14:24-0500 Body mass index (BMI) [Ratio] 28.86 kg/m2 Khadra Kitty DO Work Phone: [facility] 03-25-2024 14:24-0500 Body weight 88.63 kg Khadra Kitty DO Work Phone: [facility] 03-25-2024 14:24-0500 Diastolic blood pressure 70 mm[Hg] Khadra Kitty DO Work Phone: [facility] 03-25-2024 14:24-0500 Systolic blood pressure 124 mm[Hg] Khadra Kitty DO Work Phone: [facility] 03-19-2024 13:09-0400 Body height 175.3 cm Kathrin Mansfield DPM Work Phone: [facility] 03-19-2024 13:09-0400 Body mass index (BMI) [Ratio] 28.32 kg/m2 Kathrin Mansfield DPM Work Phone: [facility] 03-19-2024 13:09-0400 Body weight 87 kg Kathrin Mansfield DPM Work Phone: [facility] Encounters Encounter Date Encounter Type Care Provider Facility Start: 02-04-2025 End: 02-04-2025 Bamboo flowsheet Khadra Kitty DO Work Phone: [facility] Start: 02-04-2025 End: 02-04-2025 Bamboo flowsheet Khadra Kitty DO Work Phone: [facility] Start: 02-04-2025 End: 02-04-2025 Office outpatient visit 15 minutes Khadra Kitty DO Work Phone: [facility] Comment on above: Encounter to discuss test results; Insulin resistance; Fibroids; Amenorrhea Start: 02-04-2025 End: 02-04-2025 ambulatory KHADRA KITTY Not Available Start: 01-28-2025 End: 01-28-2025 ambulatory [facility] Start: 01-24-2025 End: 01-24-2025 Clinisync Result Encounter Annette Davis NP Work Phone: [facility] Unsolicited Start: 01-24-2025 End: 01-24-2025 Clinisync Result Encounter Annette Davis NP Work Phone: [facility] Unsolicited Start: 01-21-2025 End: 01-21-2025 ambulatory KHADRA KITTY Not Available Start: 01-21-2025 End: 01-21-2025 Office outpatient visit 15 minutes Khadra Kitty DO Work Phone: [facility] Comment on above: Amenorrhea (Primary Dx); Irregular periods/menstrual cycles Start: 01-21-2025 End: 01-21-2025 Bamboo flowsheet Khadra Kitty DO Work Phone: [facility] Start: 01-21-2025 End: 01-21-2025 Bamboo flowsheet Khadra Kitty DO Work Phone: [facility] Start: 01-14-2025 End: 01-14-2025 ambulatory Aris Bishop MD Work Phone: [facility] Work Phone: Start: 01-14-2025 End: 01-14-2025 Patient encounter procedure Migdalia Herrmann Marah DO -[facility] [place] Work Phone: Start: 12-16-2024 End: 12-16-2024 ambulatory [facility] Start: 11-12-2024 End: 11-12-2024 ambulatory [facility] Start: 10-17-2024 End: 10-17-2024 ambulatory MIALE Galo [facility] Start: 10-01-2024 End: 10-01-2024 ambulatory [facility] Start: 09-25-2024 End: 09-25-2024 [facility] Start: 08-28-2024 End: 08-28-2024 Telephone encounter Jr. Jennifer Brown DO Work Phone: [facility] Comment on above: change appt Start: 08-27-2024 End: 08-27-2024 ambulatory [facility] Start: 08-26-2024 End: 08-26-2024 Office outpatient visit [...] Scapular dyskinesis Start: 08-25-2024 End: 08-25-2024 Bamboo flowsvianey Iverson PT Work Phone: [facility] Start: 08-25-2024 End: 08-25-2024 Bamboo flowsheet Leroy Tone [place] PT Work Phone: [facility] Start: 08-22-2024 End: 08-22-2024 ambulatory JOHN CEJA [facility] Start: 08-20-2024 End: 08-20-2024 ambulatory Jameel Theodore [employer]ER[employer] PROFESSION[employer] [facility] Comment on above: Acute pain of left s houlder (Primary Dx); Scapular dyskinesis Start: 08-20-2024 End: 08-20-2024 Bamboo flowsheet Jameel Brink [employer]IVIL ENGINEERING PROFESSIONAL [facility] Start: 08-20-2024 End: 08-20-2024 Bamboo flowsheet Jameel Brink CIVIL ENGINEERING PROFESSIONAL [facility] Start: 08-14-2024 End: 08-14-2024 ambulatory Leroy Tone [place] PT Work Phone: [facility] PT Comment on above: Acute pain of left s houlder (Primary Dx); Scapular dyskinesis Start: 08-14-2024 End: 08-14-2024 Bamboo flowsheet Leroy Teagueton PT Work Phone: [facility] Start: 08-14-2024 End: 08-14-2024 Bamboo flowsheet Leroy Tone Amoston PT Work Phone: [facility] Start: 08-12-2024 End: 08-13-2024 ambulatory LEROY Tone AMOSTON Not Available Start: 08-06-2024 End: 08-06-2024 ambulatory JAMEEL THEODORE Not Available Start: 08-05-2024 End: 08-05-2024 ambulatory [...] shoulder Start: 07-30-2024 End: 07-30-2024 ambulatory JOHN CEJA Not Available Start: 07-28-2024 End: 07-29-2024 ambulatory LEROY IVERSON Not Available Start: 07-28-2024 End: 07-28-2024 Bamboo flowsheet Leroy Iverson PT Work Phone: [facility] Start: 07-28-2024 End: 07-28-2024 Bamboo flowsheet Leroy Obando Amosmata PT Work Phone: [facility] Start: 07-21-2024 End: 07-22-2024 ambulatory Sander Daniels PT [facility] Comment on above: Acute pain of left s houlder (Primary Dx); Scapular dyskinesis Start: 07-21-2024 End: 07-21-2024 Bamboo flowsheet Sander Daniels PT [facility] Start: 07-21-2024 End: 07-21-2024 Bamboo flowsheet Sander Daniels PT [facility] Start: 07-17-2024 End: 07-17-2024 ambulatory Nati Kimbley CIVIL ENGINEERING PROFESSIONAL [facility] Comment on above: Acute pain of left s houlder (Primary Dx); Scapular dyskinesis Start: 07-17-2024 End: 07-17-2024 Bamboo flowsheet Nati Kelbley CIVIL ENGINEERING PROFESSIONAL [facility] Start: 07-17-2024 End: 07-17-2024 Bamboo flowsheet Nati Kelbley CIVIL ENGINEERING PROFESSIONAL [facility] Start: 07-14-2024 End: 07-15-2024 [...] 07-02-2024 Office outpatient new 45 minutes John Ceja PA Work Phone: [facility] [...] 18-39 yrs Khadra Kitty DO Work Phone: [facility] Comment on above: Well woman exam with routine gynecological exam; Fatigue, unspecified type Start: 03-25-2024 End: 03-25-2024 ambulatory KHADRA TANG Not Available Start: 03-24-2024 End: 03-24-2024 Orders Only Kathrin Mansfield DPM Work Phone: [facility] Comment on above: Onychomycosis (Prima ry Dx) Start: 03-19-2024 End: 03-19-2024 Bamboo flowsheet Kathrin Mansfield DPM Work Phone: [facility] Start: 03-19-2024 End: 03-19-2024 Bamboo flowsheet Kathrin Mansfield DPM Work Phone: [facility] Start: 03-19-2024 End: 03-19-2024 Office outpatient new 45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 Specialty Start Date End Date Aris Bishop MD [address] [place] [facility] [address] PCP - General Family Medicine 03/19/23 Patient Experience Coordinator Relationship Specialty Start Date End Date Aris Bishop MD [address] [place] [facility] [address] PCP - General Family Medicine 03/19/23 Patient Experience Coordinator Relationship Specialty Start Date End Date Aris Bishop MD [address] [place] [facility] [address] PCP - General Family Medicine 03/19/23 Patient Experience Coordinator Relationship Specialty Start Date End Date Aris Bishop MD [address] [place] [facility] [address] PCP - General Family Medicine 03/19/23 Patient Experience Coordinator Relationship Specialty Start Date End Date Aris Bishop MD [address] [place] [facility] [address] PCP - General Family Medicine 03/19/23 Team Status: Active Member Role Status Dates Aris Bishop MD Primary Care Provider Active Team Status: Inactive Member Role Status Dates Migdalia Crystal DO Attending Provider Active Sta rt: January 14, 2025 End: January 14, 2025 Aris Bishop MD Primary Care Provider Active Start: January 14, 2025 End: January 14, 2025 Patient Experience Coordinator Relationship Specialty Start Date End Date Aris Bishop MD [address] [place] [facility] [address] PCP - General Family Medicine 03/19/23 Patient Experience Coordinator Relationship Specialty Start Date End Date Aris Bishop MD [address] [place] [facility] [address] PCP - General Family Medicine 03/19/23 Reason for Visit (unrecogniz ed section and content) Reason Comments Toe Problem 39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 Pt relates having lichens planus and is now localized to right foot, pt relates very itchy. Reason Comments Well Women Visit Reason Comments Pain Reason Comments Follow-up Reason Comments Pain Reason Onset Date Comments change appt 08/28/2024 Reason Comments Results Reason Comments Menstrual Problem Goals (unrecognized section and content) Goals may [...] BE BASED ON THE PRIMARY CLINICAL RECORDS. [email or web address] provides no warranty or guarantee of the accuracy or completeness of information in this document.
== END 2025-02-11 06:44 | disposition home or self-care (01) ==
LOC: MRI 06:43
PROVIDERS: PCP Family Medicine; Visit Provider Obstetrics & Gynecology
DX: R79.89 Other specified abnormal findings of blood chemistry (principal); D35.2 Benign neoplasm of pituitary gland
CPT/HCPCS: 70553; A9575

== ENCOUNTER 2025-04-15 15:30 | Outpatient (REF) | payer BC, SELFPAY ==
--- OUTSIDE RECORDS SUMMARY | 2025-04-15 14:00 | XMS_ITS | Encounter Summary ---
Author Organization [facility] Address [address] [place] [address] Care Team Providers Care Director Dermatology Name Role Phone Aris Bishop MD Primary Care Provider [phone] Reason for Visit * ReasonCommentsWell Women Visit Encounter Details DateTypeDepartmentCare Team (Latest Contact Info)Bvpgqvhurnm57/26/2025 2:00 PM ESTOffice Visit [facility] [address] [place] [address] Helder Tang DO [address] [place] [address] Well woman exam with routine gynecological exam; Yeast infection Social History Tobacco UseTypesPacks/DayYears UsedDateSmoking Tobacco: Every DayCigarettes Comments:Patient started smo mallika 20 years ago (noted 03/15/22). Smokes 11-20 cigarettes/day after 31-60 minutes of waking up. Alcohol UseStandard Drinks/WeekCommentsYes0 (1 standard drink = 0.6 oz pure alcohol)3 or 4 drinks on a typical day / 2 to 4 times a month.Comments UnknownSex and Gender InformationValueDate RecordedSex Assigned at BirthFemale 03/14/2023 9:47 AM EDTLegal SaaVghbpq02/15/2023 8:28 PM EDTGender IdentityFemale 03/14/2023 9:47 AM EDTSexual QxgifaqemvqMlbrmwze91/25/2023 9:47 AM EDTdocumented as of this encounter Last Filed Vital Signs Vital SignReadingTime TakenCommentsBlood Yjwkxscf503/80106/15/2024 2:18 PM EST Pulse--Temperature--Respiratory Rate--Oxygen Saturation--Inhaled Oxygen Concentration--Ajiujf68.8 kg (182 lb 8 oz)04/15/2025 2:18 PM ESTHeight--Body Mass Index26.9503/25/2024 2:24 PM ESTdocumented in this encounter Plan of Treatment DateTypeDepartmentCare Team (Latest Contact Info)Jpaqsiofoiq47/30/2026 3:00 PM ESTProcedure Visit [facility] [address] [place] [address] Helder Tang DO [address] [facility] [address] [place], [place] [phone] NameTypePriorityAssociated DiagnosesOrder SchedulePap SmearPathology and CytologyRoutine Well woman exam with routine gynecological exam Ordered: 04/15/2025HPV DNA probe, amplifiedMicrobiologyRoutine Well woman exam with routine gynecological exam Ordered: 04/15/2025documented as of this encounter Visit Diagnoses Diagnosis Well woman exam with routine gynecological exam Routine gynecological examination Yeast infection documented in this encounter Care Teams Team MemberRelationshipSpecialtyStart DateEnd Aris Bishop MD [address] [facility] [place] [address] PCP - GeneralFamily Dlieocmu09/30/23documented as of this encounter
--- OUTSIDE RECORDS SUMMARY | 2025-04-15 15:33 | XMS_ITS | Clinical Summary ---
Author Organization [employer] Address [facility] [place] [id number] [address] [place] [address] Care Team Providers Care Vp Scientific Affairs Name Role Phone No Pcp, No Pcp Primary Care Provider Unavailabl e Allergies Active AllergyReactionsCriticalityNoted DateCommentsAdhesive Tape-SiliconesRash Low03/19/2023 Band-aids QlcypomnIszxAsv33/09/2025odeineVomiting,GdzhMxl7003/19/2023 Other Reaction(s): Vomiting PrednisoneOther (See Comments)03/19/2023 Medications MedicationSigDispense QuantityRefillsLast FilledStart DateEnd DateStatus hydroCHLOROthiazide (HYDRODIURIL) 25 mg tablet Take 1 tablet (25 mg total) by mouth daily.5Active carvediloL (COREG) 25 mg tablet Take 1 tablet (25 mg total) by mouth in the morning and 1 tablet (25 mg total) in the evening. Takewith meals.5Active metFORMIN (FORTAMET) 500 MG (OSM) 24 hr tablet Take 1 tablet (500 mg total) by mouth daily with breakfast.Active cabergoline (DOSTINEX) 0.5 mg tablet Indications:HyperprolactinemiaTake 1 tablet (0.5 mg total) by mouth 2 (two) times a week. 28 tablet 5Active meloxicam (MOBIC) 15 mg tablet Take 1 tablet (15 mg total) by mouth in the morning. 30 tablet 5Active Active Problems ProblemNoted DateDiagnosed DateCervical spondylosis without etsntyoynz06/10/2025 Cervical fecezeqnebakt72/25/2025Thoracic spondylosis without myelopathy 10/01/2024 Encounters DateTypeDepartmentCare WxrlWbezeerejml76/20/2025Results Follow-Up [facility] Department of [facility] [address] [address] Tiarra Banks MD Pvazdnvnu68/19/6950Mtcfke20/29/2025Results Follow-[facility] Department of [facility] [address] [address] Tiarra Banks MD Cortisol, Estradiol, Follicle stimulating hormone, Additional followed-up results: Refill [facility] [address] [place] [address] Zoe Holbrook RN 03/05/2025 9:45 AM EDTOffice Visit [facility] Department of [facility] [address] [address] Tiarra Banks MD Pituitary adenoma ([facility]) (Primary Dx); Txbciqhwrxnjdwoyzj19/16/7851Ppftwq53/03/2025 11:59 PM EDTHospital Encounter [facility] [address] [place] [address] Ilan Herrera MD Discharge Disposition: Home01/28/2025 12:45 PM EDTOffice Visit [facility] [address] [place] [address] Lorena Padgett PA-C Cervical spondylosis without myelopathy (Primary Dx)01/28/2025Travelfrom Last 3 Months Family History Medical HistoryRelationNameCommentsAlcohol abuseFatherCirrhosisFatherRelation NameStatusCommentsFather Social History Tobacco UseTypesPacks/DayYears UsedDateSmoking Tobacco: Every BrrNctxaydxbt391.6 Started: 08/28/1999Smokeless Tobacco: Never Tobacco Cessation:Ready to Q uit: No; Counseling Given: Not Answered Alcohol UseStandard Drinks/WeekCommentsYes0 (1 standard drink = 0.6 oz pure alcohol)10 drinks/week, twisted tea dailyChildcareAnswerDate RecordedChildcare Wozigfv9310/30/2018EmploymentAnswerDate SlgmfgyhYwfptfmjyrOuoafkd48/12/2019Hunger ScreeningAnswerDate RecordedWithin the past 12 months we worried whether our food would run out before we got money to buy more.Never True01/28/2025Within the past 12 months the food we bought just didn't last and we didn't have money to get more.Never True01/28/2025CommentsUnknownSex and Gender InformationValueDate RecordedSex Assigned at BirthNot on fileLegal SexFemale 12/24/2014 12:03 PM EDTGender IdentityNot on fileSexual OrientationNot on file Last Filed Vital Signs Vital SignReadingTime TakenCommentsBlood Grhegnwy195/8103/05/2025 9:29 AM EDT Bqstr600103/05/2025 9:29 AM EDTTemperature--Respiratory Gpmh4192 1:00 PM EDTOxygen Cprsqjlukv22%01/28/2025 1:00 PM EDTInhaled Oxygen Concentration-- Zlscai65.9 kg (189 lb 4.8 oz)03/05/2025 9:29 AM TDOFbvfqb276.3 cm (5' 9.02 ) 03/05/2025 9:29 AM EDTBody Mass Index27.9403/05/2025 9:29 AM EDT Plan of Treatment DateTypeDepartmentCare Team (Latest Contact Info)Xbfldscbjoz82/22/2026 10:15 AM EDTSupport Visit [facility] Department of [facility] [address] [facility] [address] [place] [address] Tiarra Banks MD [address] [facility] [place] [address] Health MaintenanceDue DateLast DoneCommentsTobacco Ddaxcjfglc1986DTaP,Tdap and Td Vaccines (6 - Tdap), 01/07/1991, 12/31/1989, Additional history existsDepression Tyitjknba21/11/1998Adult BMI Follow Up Plan 01/30/2004Pap Smear2007Influenza Cpkmtvx4901/19/2025dult BMI Screening Tobacco Svoefljnh22 Medical Devices Not on file Procedures Procedure NamePriorityDate/TimeAssociated DiagnosisCommentsPROLACTINRoutine 04/08/2025 12:45 PM EST Pituitary adenoma (CMS-HCC) MALLORY GENERIC NFCOYRzarbvm75/18/2025 8:48 AM EDT Pituitary adenoma (CMS-HCC) T4, MRDGWcmfkkn92/18/2025 8:48 AM EDT Pituitary adenoma (CMS-HCC) KRVMRKWBJEeeuuhz42/18/2025 8:48 AM EDT Pituitary adenoma (CMS-HCC) LUTEINIZING KTIMFLPJxfwhth17/18/2025 8:48 AM EDT Pituitary adenoma (CMS-HCC) FOLLICLE STIMULATING LZPGOQZKposxvu77/18/2025 8:48 AM EDT Pituitary adenoma (CMS-HCC) WZXBYBCHDUabwyuh02/18/2025 8:48 AM EDT Pituitary adenoma (CMS-HCC) SCNMORYQOuziwka88/18/2025 8:48 AM EDT Pituitary adenoma (CMS-HCC) from Last 3 Months Results * (ABNORMAL) Prolactin (04/08/2025 12:45 PM EST) Only the most recent of2 resultswithin the time period is included. ComponentValueRef RangeTest MethodAnalysis TimePerformed AtPathologist Signature PROLACTIN2.0(L)3.3 - 26.7 ng/mL04/08/2025 7:21 PM [facility] LABORATORYSpecimen (Source)Anatomical Location / LateralityCollection Method / VolumeCollection TimeReceived TimeBloodVenous blood / UnknownVenipuncture / Vjmydsx7604/08/2025 12:45 PM EST04/08/2025 12:45 PM EST Narrative Authorizing ProviderResult TypeResult StatusBalbinalpcharlene Banks MDLAB BLOOD ORDERABLESFinal ResultPerforming OrganizationAddressCity/State/ZIP CodePhone Number [facility] [address] [place] [address], * MALLORY GENERIC ORDER (03/07/2025 8:48 AM EDT)ComponentValueRef RangeTest Method Analysis TimePerformed AtPathologist SignatureTEST RESULTSEE COMMENTS 03/13/2025 12:22 AM [facility] LABORATORIESComment: Test ? Result ? Flag ??Unit ?? RefValue IGF-1, LC/MS ??IGF-1, LCMS ?111 ?ng/mL ??53-331 ?Z-Score (Female) ? -0.5 ? SD ? -2.0 - +2.0 ?This test was developed and its analytical performance ?characteristics have been determined by [employer]. ?It has not been cleared or approved by the FDA. This assay ?has been validated pursuant to the CLIA regulations and is ?used for clinical purposes. ?Test Performed by: ?[facility] ?[address] [facility] ?[place] [address] Specimen (Source)Anatomical Location / LateralityCollection Method / Volume Collection TimeReceived TimeBloodVenous blood / UnknownVenipuncture / Unknown 03/07/2025 8:48 AM EDT1 8:48 AM EDT Narrative Authorizing ProviderResult TypeResult StatusTiarra BAIRD BLOOD ORDERABLESFinal ResultPerforming OrganizationAddressCity/State/ZIP CodePhone Number [facility] [address] [place] [address], [place] * Estradiol (03/07/2025 8:48 AM EDT)ComponentValueRef RangeTest MethodAnalysis TimePerformed AtPathologist LchewcaagSZXYDANAD54.0pg/mL03/07/2025 5:05 PM EDT [facility]YSpecimen (Source)Anatomical Location / LateralityCollection Method / VolumeCollection TimeReceived TimeBloodVenous blood / UnknownVenipuncture / Apgbasz7303/07/2025 8:48 AM EDT1 8:48 AM EDT Narrative [facility] - 03/07/2025 5:05 PM EDT NON- FEMALES Mid follicular: 25-115 pg/mL Ovulatory Peak: 32.1-517 pg/mL Mid Luteal: 36.5-246 pg/mL Post-Menopausal Females: <15.0-25.1 pg/mL (Not on hormone therapy) The Access Sensitive Estradiol assay results are not intended to be used to measure the effectiveness of exogeneous Estradiol supplementation, for example, when the patient is on hormone replacement therapy. The presence of estradiol drug analogues and their metabolites could have an impact on estradiol recovery when using this assay. Authorizing ProviderResult TypeResult StatusTiarra BAIRD BLOOD ORDERABLESFinal ResultPerforming OrganizationAddressCity/State/ZIP CodePhone Number [facility] [address] [place] [address], * T4, free (03/07/2025 8:48 AM EDT)ComponentValueRef RangeTest MethodAnalysis TimePerformed AtPathologist SignatureFREE T40.860.61 - 1.60 ng/dL03/07/2025 4:41 PM [facility] LABORATORYSpecimen (Source)Anatomical Location / LateralityCollection Method / VolumeCollection TimeReceived Time BloodVenous blood / UnknownVenipuncture / Xomkknw7703/07/2025 8:48 AM EDT 03/07/2025 8:48 AM EDT Narrative Authorizing ProviderResult TypeResult StatusTiarra Banks MDLAB BLOOD ORDERABLESFinal ResultPerforming OrganizationAddressCity/State/ZIP CodePhone Number [facility] [address] [place] [address], * Luteinizing hormone (03/07/2025 8:48 AM EDT)ComponentValueRef RangeTest Method Analysis TimePerformed AtPathologist SignatureLUTEINIZING HORMONE5.2mIU/mL 03/07/2025 5:07 PM [facility] LABORATORYSpecimen (Source) Anatomical Location / LateralityCollection Method / VolumeCollection Time Received TimeBloodVenous blood / UnknownVenipuncture / Prbvyjy1703/07/2025 8:48 AM EDT1 8:48 AM EDT Narrative [facility] - 03/07/2025 5:07 PM EDT NORMAL FEMALE Follicular ?? 2.1-10.9 ??mIU/mL Mid Cycle ??19.2-103 ?? mIU/mL Luteal ?? 1.2-12.9 ??mIU/mL Post Therese ??10.9-58.6 ??mIU/mL Authorizing ProviderResult TypeResult StatusTiarra BAIRD BLOOD ORDERABLESFinal ResultPerforming OrganizationAddressCity/State/ZIP CodePhone Number [facility] [address] [place] [address], * Follicle stimulating hormone (03/07/2025 8:48 AM EDT)ComponentValueRef Range Test MethodAnalysis TimePerformed AtPathologist SignatureFOLLICLE STIM HORMONE 7.7mIU/mL03/07/2025 5:06 PM [facility] LABORATORYSpecimen (Source)Anatomical Location / LateralityCollection Method / VolumeCollection TimeReceived TimeBloodVenous blood / UnknownVenipuncture / Pcqyvcq1003/07/2025 8:48 AM EDT1 8:48 AM EDT Narrative [facility] - 03/07/2025 5:06 PM EDT NORMAL FEMALE: Luteal ??1.8-5.1 ?mIU/mL Follicular ??3.8-8.8 ?mIU/mL Mid Cycle ??4.5-22.5 ?? mIU/mL Post Avant ??16.7-113.6 ??mIU/mL Authorizing ProviderResult TypeResult StatusTiarra BAIRD BLOOD ORDERABLESFinal ResultPerforming OrganizationAddressCity/State/ZIP CodePhone Number [facility] [address] [place] [address], * Cortisol (03/07/2025 8:48 AM EDT)ComponentValueRef RangeTest MethodAnalysis TimePerformed AtPathologist SignatureCORTISOL, TOTAL10.8ug/dL03/07/2025 4:42 PM [facility] LABORATORYSpecimen (Source)Anatomical Location / LateralityCollection Method / VolumeCollection TimeReceived TimeBloodVenous blood / UnknownVenipuncture / Erusvek8503/07/2025 8:48 AM EDT1 8:48 AM EDT Narrative [facility] - 03/07/2025 4:42 PM EDT Due to the diurnal variation of cortisol levels in normal subjects, all cortisol measurments should be referenced to the time of day of sample collection. AM Cortisol Age>=6 6.7-22.4 ug/dL PM Cortisol Age>=6 <10 ug/dL Authorizing ProviderResult TypeResult StatusTiarra BAIRD BLOOD ORDERABLESFinal ResultPerforming OrganizationAddressCity/State/ZIP CodePhone Number [facility] [address] [place] [address], from Last 3 Months Insurance Care Teams Team MemberRelationshipSpecialtyStart DateEnd Date No Pcp, [place] [address] PCP - General07/23/13
--- OUTSIDE RECORDS SUMMARY | 2025-04-15 15:33 | XMS_ITS | Clinical Summary ---
Author Organization [facility] Address [address] [place] [address] Care Team Providers Care Customer Support Analyst Name Role Phone Aris Bishop MD Primary Care Provider [phone] Allergies Active AllergyReactionsCriticalityNoted AspsNsoomkddFeradmpFkctcas34/30/2023 Other Reaction(s): Vomiting DvejehihuhAepfx37/30/2023Wound Dressing ZrvgrvbjVjcnQow09/30/2023 Band-aids Medications MedicationSigDispense QuantityRefillsLast FilledStart DateEnd DateStatus hydroCHLOROthiazide (HYDRODiuril) 25 MG tablet Take 25 mg by mouth DailyActive meloxicam (Mobic) 15 MG tablet Take 15 mg by mouth Daily5Active metFORMIN XR (Glucophage-XR) 500 MG 24 hr tablet Indications:Insulin resistanceTake 1 tablet (500 mg) by mouth in the evening. Take with meals Do not crush, chew, or split. 30 tablet 11002/04/676262/6Active cabergoline (Dostinex) 0.5 MG tablet Take 0.5 mg by mouth 2 (two) times a week5Active carvedilol (Coreg) 25 MG tablet TAKE 1 TABLET BY MOUTH TWICE A DAY WITH FOOD FOR 30 DAYSActive fluconazole (Diflucan) 150 MG tablet Indications:Yeast infectionTake 1 tablet (150 mg) by mouth 1 (one) time for 1 dose Repeat in 7 days if symptoms persist. 2 tablet 04/15/5Active carvedilol (Coreg) 12.5 MG tablet Take 12.5 mg by mouth in the morning and 12.5 mg in the evening. Take with meals.Discontinued medroxyPROGESTERone (Provera) 10 MG tablet Indications:AmenorrheaTake 1 tablet (10 mg) by mouth Daily Take 1 tablet by mouth daily for 7 days beginning on day 16 ofthe menstrual cycle. 14 tablet 5106/15/2024Discontinued Active Problems No known active problems Encounters DateTypeDepartmentCare VziwKaawwbxgqhm43/26/2025 2:00 PM ESTOffice Visit [facility] [place] [facility] [place] [address] Khadra Tang, Well woman exam with routine gynecological exam; Yeast aoupmrjnn23/26/2025ambnick [place] [address] Khadra Tang, DO 02/12/2025Telephone [facility] [place] [facility] [place] [address] Khadra Tang, 02/11/2025linisync Result Encounter [facility] External Department Unsolicited Khadra Tang, DO 02/06/2025Telephone [facility] [place] [facility] [place] [address] Herlinda Saenz MA 02/04/2025 1:00 PM EDTOffice [place] [address] Khadra Tang, Encounter to discuss test results; Insulin resistance; Fibroids; Xijpdmdmlt67/17/2025ambnick [place] [address] Khadra Tang, DO 01/26/2025Results [place] [address] Paola Horvath, PERPETUAL INVENTORY CLERK [facility] PEJXYNPUX11/08/2025Telephone [facility] [place] [facility] [address] [place] [address] Paola Horvath SIVAKUMAR 5Clinisync Result Encounter [facility] External Department Unsolicited RyanAnnette mederos, PERPETUAL INVENTORY CLERK 5Clinisync Result Encounter NOMS External Department Unsolicited Annette Davis, PERPETUAL INVENTORY CLERK 01/21/2025 3:00 PM EDTOffice Visit [facility] [place] [facility] [address] [place] [address] Khadra Tang DO Amenorrhea (Primary Dx); Irregular periods/menstrual ewoems1901/21/2025amboo flowsheet [facility] [place] [facility] [address] [place] [address] Khadra Tang DO from Last 3 Months Immunizations ImmunizationAdministration DatesNext EwuSYI1701/08/1992,01/07/1991,12/31/1989, 03/15/1988,02/03/1988HiB, wbgympypvij02/29/0069PXS1001/19/1999,1986OPV 01/07/1991,03/15/1988,02/03/1988,1986 Family History Medical HistoryRelationNameCommentsHeart diseaseMotherPsoriasisNeg HxRelation NameStatusCommentsFatherAliveMotherAlive Social History Tobacco UseTypesPacks/DayYears UsedDateSmoking Tobacco: Every DayCigarettes Tobacco Cessation:Ready to Q uit: Not Asked; [...] Assigned at BirthFemale 03/14/2023 9:47 AM EDTLegal GvuEwlylg88/ 8:28 PM EDTGender IdentityFemale 03/14/2023 9:47 AM EDTSexual MvdgrpldswuYmuinbfg69/25/2023 9:47 AM EDT Last Filed Vital Signs Vital SignReadingTime TakenCommentsBlood Bwfcnklg735/80106/15/2024 2:18 PM EST Pulse--Temperature--Respiratory Rate--Oxygen Saturation--Inhaled Oxygen Concentration--Xdjdco75.8 kg (182 lb 8 oz)04/15/2025 2:18 PM IXHBysvnj181.3 cm (5' 9 )03/25/2024 2:24 PM ESTBody Mass Index26.9503/25/2024 2:24 PM EST Plan of Treatment DateTypeDepartmentCare Team (Latest Contact Info)Dbndkfuntpw85/30/2026 3:00 PM ESTProcedure Visit [facility] [place] [facility] [address] [place] [phone] Khadra Tang DO [address] [place] [address] Procedures Procedure NamePriorityDate/TimeAssociated DiagnosisCommentsMR PITUITARY W AND WO IV WDUPOOHV55/24/2025 9:42 AM EDT US PELVIS W/ CSHDJUNXVBCM69/06/2025 2:57 PM EDT [facility] PHNUWCPQWMsnbupi40/06/2025 12:50 PM EDT MLR HEMOGLOBIN H0SBuxagfe01/06/2025 12:50 PM EDT [facility] PREG QUANT XKPTmhzmmy35/06/2025 12:50 PM EDT ALL THYROID STIM MAEJLTCTovxbxb01/06/2025 12:50 PM EDT ALL CBC WITH AUTO CUTQLssrneg13/06/2025 12:50 PM EDT from Last 3 Months Results * MR BRAIN PITUITARY W & WO CONTRAST (02/11/2025 9:42 AM EDT)Anatomical Region LateralityModalityHead, NeckMagnetic ResonanceSpecimen (Source)Anatomical Location / LateralityCollection Method / VolumeCollection TimeReceived Time 02/11/2025 9:42 AM EDT Narrative 02/11/2025 9:45 AM EDT [facility] ?[address] ? [place] [address] ? Magnetic Resonance Report ? Signed ? Patient: MARY CARMEN,CARLY ? MR#: [id number] ?? : 1985 ?Acct:[id number] ?? Age/Sex: 40 / F ?ADM Date: 02/11/25 ?? Loc: MRI ? Attending Dr: Khadra Tang D.O. ? Ordering Physician: Khadra Tang D.O. ?? Date of Service: 02/11/25 ?? Procedure(s): MR pituitary wo/w con ?? Accession Number(s): [id number] ? cc: Khadra Tang D.O.; Aris Bishop M.D. ? [facility] ? [address] ? [place] [address] ? Patient Name: ?? CARLY LENTZ ? MRN: [facility]:[id number] ? date: 1985 ?Sex: F ?? Assigned Patient Location: MRI ?? Current Patient Location: MRI ?? Accession/Order Number: [id number] ?? Exam Date: 02/11/2025 ??07:00 ?Report Date: 02/11/2025 ??09:42 ? At the request of: ?? KHADRA ??KITTY ??DO ? Procedure: ??MR pituitary wo/w con ? MR pituitary wo/w con ??02/11/2025 7:51 AM ? SIGN AND SYMPTOMS: ?? ELEVATED PROLACTIN LEVELS ? PROTOCOL: Multiplanar multisequence MR images of the brain with and without IV ?? contrast ? CONTRAST: 18 mL of intravenous Dotarem ? COMPARISON: None. ? FINDINGS: ? Extra axial spaces: Age appropriate. ?? Hemorrhage: None. ?? Ventricular system: Within normal limits. ?? Basal cisterns: Within normal limits and not effaced. ?? Cerebral parenchyma: Normal in signal. ?? Midline shift: None.. ?? Cerebellum: Within normal limits. ?? Brainstem: Within normal limits. ? OTHER: ? Calvarium: Normal marrow signal. ?? Vascular system: Satisfactory flow voids within the anterior and posterior ?? circulation. ?? Visualized Paranasal sinuses: Within normal limits. ?? Visualized Orbits: Within normal limits. ?? Visualized upper cervical spine: Within normal limits. ?? Sella and skull base: Centered to the right of midline within the sella is a 9 ?? x 8 x 6 mm area of hypoenhancement changes accompanying T1 hyperintense signal ?? layering dependently on precontrast T1 images. ??This is most consistent with a ?? pituitary microadenoma possibly complicated by proteinaceous debris or ?? previous hemorrhage. ??The pituitary stalk is deviated to the left midline as a ?? result. ? MR/MR pituitary wo/w con ?? IMPRESSION: ? Centered to the right of midline within the sella is a 9 x 8 x 6 mm area of ?? hypoenhancement changes accompanying T1 hyperintense signal layering ?? dependently on precontrast T1 images. ??This is most consistent with a ?? pituitary microadenoma possibly complicated by proteinaceous debris or ?? previous hemorrhage. ? No acute intracranial pathology or abnormal postcontrast enhancement is noted ?? otherwise. ? Impression dictated by: Jones Diallo M.D. ??02/11/2025 9:42 AM ? Dictation Location: [facility]-- ? Electronically authenticated by: [id number] ??Y ?? Date: 02/11/2025 ??09:42 ? Dictated By: ?Jones Diallo M.D. ? Signed By: ?02/11/25 0945 ? DD/ 0942 ? TD/TT: ? Manager Of Case: Procedure Note Radiology, Radiologist, MD - 02/11/2025 [place] [address] Magnetic Resonance Report Signed Patient: CARLY LENTZMR#: [id number] : 1985Acct:[id number] Age/Sex: 40 / FADM Date: 02/11/25 Loc: MRI Attending Dr: Khadra Tang D.O. Ordering Physician: Khadra Tang D.O. Date of Service: 02/11/25 Procedure(s): MR pituitary wo/w con Accession Number(s): [id number] cc: Khadra Tang D.O.; Aris Bishop M.D. [place] [id number] Patient Name: CRALY LENTZ MRN: [id number] date: 1985 Sex: F Assigned Patient Location: MRI Current Patient Location: MRI Accession/Order Number: [id number] Exam Date: 02/11/2025 07:00 Report Date: 02/11/2025 09:42 At the request of: KHADRA TANG DO Procedure: MR pituitary wo/w con MR pituitary wo/w con 02/11/2025 7:51 AM SIGN AND SYMPTOMS: ELEVATED PROLACTIN LEVELS PROTOCOL: Multiplanar multisequence MR images of the brain with andwithout IV contrast CONTRAST: 18 mL of intravenous Dotarem COMPARISON: None. FINDINGS: Extra axial spaces: Age appropriate. Hemorrhage: None. Ventricular system: Within normal limits. Basal cisterns: Within normal limits and not effaced. Cerebral parenchyma: Normal in signal. Midline shift: None.. Cerebellum: Within normal limits. Brainstem: Within normal limits. OTHER: Calvarium: Normal marrow signal. Vascular system: Satisfactory flow voids within the anterior and posterior circulation. Visualized Paranasal sinuses: Within normal limits. Visualized Orbits: Within normal limits. Visualized upper cervical spine: Within normal limits. Sella and skull base: Centered to the right of midline within the sella daniel 9 x 8 x 6 mm area of hypoenhancement changes accompanying T1 hyperintensesignal layering dependently on precontrast T1 images. This is most consistentwith a pituitary microadenoma possibly complicated by proteinaceous debris or previous hemorrhage. The pituitary stalk is deviated to the left midlineas a result. MR/MR pituitary wo/w con IMPRESSION: Centered to the right of midline within the sella is a 9 x 8 x 6 mm areaof hypoenhancement changes accompanying T1 hyperintense signal layering dependently on precontrast T1 images. This is most consistent with a pituitary microadenoma possibly complicated by proteinaceous debris or previous hemorrhage. No acute intracranial pathology or abnormal postcontrast enhancement isnoted otherwise. Impression dictated by: Jones Diallo M.D. 02/11/2025 9:42 AM Dictation Location: [place] [address] Electronically authenticated by: [id number] Y Date: :42 Dictated By: Jones Diallo M.D. Signed By:02/11/25944 DD/ 1 TD/TT: Manager Of Case: Authorizing ProviderResult TypeResult StatusCorey Kitty DOIMG MRI PROCEDURES Final Result * US PELVIS W/ TRANSVAGINAL (01/24/2025 2:57 PM EDT)Anatomical RegionLaterality ModalityOtherSpecimen (Source)Anatomical Location / LateralityCollection Method / VolumeCollection TimeReceived Time01/24/2025 2:57 PM EDT Narrative 01/24/2025 3:00 PM EDT [facility] ?[address] ? [place], [facility] ? Ultrasound Report ? Signed ? Patient: CARLY LENTZ ? MR#: [id number] ?? : 1985 ?Acct:[id number] ?? Age/Sex: 39 / F ?ADM Date: 01/24/25 ?? Loc: US ? Attending Dr: Annette Davis ? Ordering Physician: Annette Davis ?? Date of Service: 01/24/25 ?? Procedure(s): US pelvis w/ transvaginal ?? Accession Number(s): [id number] ? cc: Annette Davis; Aris Bishop M.D. ? [facility] ? [address] [address] ? [place] [address] ? Patient Name: ?? CARLY LENTZ ? MRN: [facility]:[id number] ? date: 1985 ?Sex: F ?? Assigned Patient Location: US ?? Current Patient Location: US ?? Accession/Order Number: [id number] ?? Exam Date: 01/24/2025 ??13:58 ?Report Date: 01/24/2025 ??14:57 ? At the request of: ?? ANNETTE ??RYAN ? Procedure: ??US pelvis w/ transvaginal ? Pelvic ultrasound. ? Reason for exam: Hematuria. ? Comparison: none ? Technique: Transabdominal imaging of the uterus and ovaries was performed. ? Transvaginal imaging of the uterus and ovaries was also obtained. Additional ?? spectral Doppler analysis of the ovaries was also obtained. ? Findings: Uterus measures 6.9 x 3.1 x 3.3 cm. ??Endometrium measures 4.3 mm ?? without focal abnormality. ??Fibroid involving the anterior fundus measuring ?? 1.7 x 1.5 x 1.4 cm. ??Right ovary measures 2.3 x 1.9 x 2.0 cm. ??Left ovary ?? measures 1.6 x 1.5 x 1.8 cm. ??Normal arterial and venous Doppler waveforms. ? No adnexal mass or cyst. ? US/ pelvis w/ transvaginal ?? Impression: Fibroid uterus. ??Unremarkable endometrium and ovaries. ? Impression dictated by: Abhinav Grullon Jr., D.O. ??01/24/2025 2:57 PM ? Dictation Location: [facility] ? Electronically authenticated by: [id number] ??Y ?? Date: 01/24/2025 ??14:57 ? Dictated By: ?Abhinav Grullon M.D. ? Signed By: ?01/24/25 1500 ? DD/ 1457 ? TD/TT: ? Manager Of Case: Procedure Note Radiology, Radiologist, - 01/24/2025 [place] [address] Ultrasound Report Signed Patient: CARLY LENTZMR#: [id number] : 1985Acct:[id number] Age/Sex: 39 / FADM Date: 01/24/25 Loc: US Attending Dr: Annette Davis Ordering Physician: Annette Davis Date of Service: 01/24/25 Procedure(s): US pelvis w/ transvaginal Accession Number(s): [id number] cc: Annette Davis; Aris Bishop M.D. The [address] [address] Patient Name: CARLY LENTZ MRN: [id number]:[id number] date: 1985 Sex: F Assigned Patient Location: US Current Patient Location: US Accession/Order Number: [id number] Exam Date: 01/24/2025 13:58 Report Date: 01/24/2025 14:57 At the request of: ANNETTE DAVIS Procedure: US pelvis w/ transvaginal Pelvic ultrasound. Reason for exam: Hematuria. Comparison: none Technique: Transabdominal imaging of the uterus and ovaries was performed. Transvaginal imaging of the uterus and ovaries was also obtained.Additional spectral Doppler analysis of the ovaries was also obtained. Findings: Uterus measures 6.9 x 3.1 x 3.3 cm. Endometrium measures 4.3 mm without focal abnormality. Fibroid involving the anterior fundusmeasuring 1.7 x 1.5 x 1.4 cm. Right ovary measures 2.3 x 1.9 x 2.0 cm. Left ovary measures 1.6 x 1.5 x 1.8 cm. Normal arterial and venous Dopplerwaveforms. No adnexal mass or cyst. US/US pelvis w/ transvaginal Impression: Fibroid uterus. Unremarkable endometrium and ovaries. Impression dictated by: Abhinav Grullon Jr., D.O. 01/24/2025 2:57 PM Dictation Location: [place] [address] Electronically authenticated by: [id number] Y Date: 4:57 Dictated By: Abhinav Grullon M.D. Signed By:01/24/25 1500 DD/ 1457 TD/TT: Manager Of Case: Authorizing ProviderResult TypeResult StatusAnnette MCGOWANLINISYGUILLE IMAGING Final Result * (ABNORMAL) [facility] PROLACTIN (01/24/2025 12:50 PM EDT)ComponentValueRef RangeTest MethodAnalysis TimePerformed AtPathologist MgknkxpxsYXDXDYFTI329.0(A)4.8 - 33.4 ng/mLTBHComment: Performed at: ??CB - [facility] [address] ??[id number] Claim Clinician: Jorge Vigil PhD, Phone: ??[phone] Specimen (Source)Anatomical Location / LateralityCollection Method / Volume Collection TimeReceived Time01/24/2025 12:50 PM EDT01/24/2025 12:51 PM EDT Narrative [facility] - 01/26/2025 12:08 PM EDT Authorizing ProviderResult TypeResult StatusAnnette Davis NPCLINISYNCFinal ResultPerforming OrganizationAddressCity/State/ZIP CodePhone Number [facility] * [facility] PREG QUANT HCG (01/24/2025 12:50 PM EDT)ComponentValueRef RangeTest Method Analysis TimePerformed AtPathologist SignatureHCG QUANTITATIVE<1mIU/mLTBH Comment: 5-50 ? 0.2-1 WEEK 50-500 ? 1-2 WEEKS 100-5,000 ?2-3 WEEKS 500-10,000 ? 3-4 WEEKS 1,000-50,000 ?? 4-5 WEEKS 10,000-100,000 5-6 WEEKS 15,000-200,000 6-8 WEEKS 10,000-100,000 2-3 MONTHS Specimen (Source)Anatomical Location / LateralityCollection Method / Volume Collection TimeReceived Time01/24/2025 12:50 PM EDT01/24/2025 12:51 PM EDT Narrative CLIN[facility]YGA - 01/24/2025 2:17 PM EDT Authorizing ProviderResult TypeResult StatusAnnette Davis NPCLINISYNCFinal ResultPerforming OrganizationAddressCity/State/ZIP CodePhone Number [facility] * MLR HEMOGLOBIN A1C (01/24/2025 12:50 PM EDT)ComponentValueRef RangeTest Method Analysis TimePerformed AtPathologist SignatureGLYCOHEMOGLOBIN A1C5.64.5 - 6.2 %TBHComment: ADA RECOMMENDED LIMIT 4.0 - 6.0 ADA THERAPEUTIC TARGET < 7.0 ACTION SUGGESTED > 7.0 ESTIMATED AVERAGE GYUYFXM833qc/dLTBHSpecimen (Source)Anatomical Location / LateralityCollection Method / VolumeCollection TimeReceived Time01/24/2025 12:50 PM EDT01/24/2025 12:51 PM EDT Narrative [facility]IN[facility]NC - 01/24/2025 2:18 PM EDT Authorizing ProviderResult TypeResult StatusAnnette Davis NPCLINISYNCFinal ResultPerforming OrganizationAddressCity/State/ZIP CodePhone Number [facility] * ALL THYROID STIM HORMONE (01/24/2025 12:50 PM EDT)ComponentValueRef RangeTest MethodAnalysis TimePerformed AtPathologist SignatureTHYROID STIMULATING HORMONE2.2400.358 - 3.740 uIU/mLTBHSpecimen (Source)Anatomical Location / LateralityCollection Method / VolumeCollection TimeReceived Time01/24/2025 12:50 PM EDT01/24/2025 12:51 PM EDT Narrative KRYSTYNANC - 01/24/2025 2:17 PM EDT Authorizing ProviderResult TypeResult StatusKrmalini Bynumerly NPCLINISYNCFinal ResultPerforming OrganizationAddressCity/State/ZIP CodePhone Number [facility] * (ABNORMAL) ALL CBC WITH AUTO DIFF (01/24/2025 12:50 PM EDT)ComponentValueRef RangeTest MethodAnalysis TimePerformed AtPathologist SignatureTBH WBC9.04.0 - 11.0 10 3/uLTBHTBH RBC4.304.20 - 5.40 10 6/uLTBHTBH HGB14.112.0 - 16.0 g/dLTBH TBH HCT42.136.0 - 48.0 %TBHTBH MCV97.981.0 - 99.0 fLTBHTBH MCH32.826.7 - 34.0 pgTBHTBH MCHC33.529.9 - 35.2 g/dLTBHTBH RDW15.7(H)11.0 - 15.0 %TBHTBH ARX510 150 - 450 10 3/uLTBHTBH MPV9.89.5 - 13.5 fLTBHNEUTROPHILS PERCENT AUTO56.543.0 - 75.0 %TBHLYMPHOCYTES PERCENT AUTO33.120.5 - 60.0 %TBHMONOCYTES PERCENT AUTO 7.71.7 - 12.0 %TBHTBH EO %1.70.9 - 7.0 %TBHBASOPHILS PERCENT AUTO0.40.2 - 2.0 %TBHIMMATURE GRANULOCYTES PCT AUTO0.6(H)0.0 - 0.5 %TBHNEUTROPHILS ABSOLUTE AUTO5.11.4 - 6.5 10 3/uLTBHLYMPHOCYTES ABSOLUTE AUTO3.01.2 - 3.8 10 3/uLTBH MONOCYTES ABSOLUTE AUTO0.70.3 - 0.8 10 3/uLTBHTBH EO #0.20.0 - 0.7 10 3/uLTBH BASOPHILS ABSOLUTE AUTO0.00.0 - 0.1 10 3/uLTBHIMMATURE GRANULOCYTES ABS AUTO 0.05(H)0.00 - 0.03 10 3/uLTBHSpecimen (Source)Anatomical Location / Laterality Collection Method / VolumeCollection TimeReceived Time01/24/2025 12:50 PM EDT 01/24/2025 12:51 PM EDT Narrative [facility] - 01/24/2025 1:24 PM EDT Authorizing ProviderResult TypeResult StatusKristina Ryan NPCLINISYNCFinal ResultPerforming OrganizationAddressCity/State/ZIP CodePhone Number [facility] from Last 3 Months Insurance Care Teams Team MemberRelationshipSpecialtyStart DateEnd Aris Bishop MD [address] [place] [phone] PCP - GeneralFamily Wdlmryps80/30/23
--- OUTSIDE RECORDS SUMMARY | 2025-04-15 15:33 | XMS_ITS | Encounter Summary ---
Author Organization [facility] Address [id number] [place] [address] Care Team Providers Care Cutter Aluminum Sheet Name Role Phone No Pcp, No Pcp Primary Care Provider Unavailabl e Encounter Details DateTypeDepartmentCare Team (Latest Contact Info)Rygzgcenfgr23/19/2025Travel Social History Tobacco UseTypesPacks/DayYears UsedDateSmoking Tobacco: Every ZmfYmhgncxpfe919.6 Started: 08/28/1999Smokeless Tobacco: NeverAlcohol UseStandard Drinks/Week CommentsYes0 (1 standard drink = 0.6 oz pure alcohol)10 drinks/week, twisted tea dailyChildcareAnswerDate NwmacnttEctwsutzvBqzmcku98/12/2019EmploymentAnswerDate PcsmyiccTvjuzseuibPidujnu52/12/2019Hunger ScreeningAnswerDate RecordedWithin the past 12 months we worried whether our food would run out before we got money to buy more.Never True01/28/2025Within the past 12 months the food we bought just didn't last and we didn't have money to get more.Never True01/28/2025 CommentsUnknownSex and Gender InformationValueDate RecordedSex Assigned at Not on fileLegal WwrBycmdd86/06/2015 12:03 PM EDTGender IdentityNot on file Sexual OrientationNot on filedocumented as of this encounter Plan of Treatment DateTypeDepartmentCare Team (Latest Contact Info)Hvnatcscfjl95/22/2026 10:15 AM EDTSupport Visit [facility] Adult [facility], A Department of [facility] [address] [place] [address] Tiarra Banks MD [address] [facility] [facility] [place] [address] documented as of this encounter Visit Diagnoses Not on filedocumented in this encounter Care Teams Team MemberRelationshipSpecialtyStart DateEnd Date No Pcp, [place] [address] PCP - General07/23/13documented as of this encounter
--- OUTSIDE RECORDS SUMMARY | 2025-04-15 15:33 | XMS_ITS | Encounter Summary ---
Author Organization [facility] Address [address] [place] [address] [place] [address] Care Team Providers Care Transfer And Pumphouse Operator Name Role Phone Aris Bishop MD Primary Care Provider [phone] Encounter Details DateTypeDepartmentCare Team (Latest Contact Info)Ktaaicwtbze57/26/2025amboo flowsheet [facility] [place] OBCHELSIE [address] [place] [phone] Helder Tang DO [address] [place], [facility] Social History Tobacco UseTypesPacks/DayYears UsedDateSmoking Tobacco: Every DayCigarettes Comments:Patient started smo mallika 20 years ago (noted 03/15/22). Smokes 11-20 cigarettes/day after 31-60 minutes of waking up. Alcohol UseStandard Drinks/WeekCommentsYes0 (1 standard drink = 0.6 oz pure alcohol)3 or 4 drinks on a typical day / 2 to 4 times a month.Comments UnknownSex and Gender InformationValueDate RecordedSex Assigned at BirthFemale 03/14/2023 9:47 AM EDTLegal MqbFkkzmt61/15/2023 8:28 PM EDTGender IdentityFemale 03/14/2023 9:47 AM EDTSexual DmoovcxllwtRecntodw56/25/2023 9:47 AM EDTdocumented as of this encounter Plan of Treatment DateTypeDepartmentCare Team (Latest Contact Info)Oevshoddlko44/30/2026 3:00 PM ESTProcedure Visit [facility] [place] [facility] [address] [place] [phone] Helder Tang DO [address] [place], [place] [phone] documented as of this encounter Visit Diagnoses Not on filedocumented in this encounter Care Teams Team MemberRelationshipSpecialtyStart DateEnd Date Aris Bishop MD [address] [facility] [place] [phone] PCP - GeneralFamily Dqcvqsxh18/30/23documented as of this encounter
--- OUTSIDE RECORDS SUMMARY | 2025-04-15 15:33 | XMS_ITS | Encounter Summary ---
Author Organization [facility] tem Address [facility] [id number] [address] [place] [address] Care Team Providers Care Staff Air Tactical Officer Name Role Phone No Pcp, No Pcp Primary Care Provider Unavailabl e Encounter Details DateTypeDepartmentCare Team (Latest Contact Info)Bqmkrrpgddn44/20/2025Results Follow-Up [facility] Adult Endocrinology, A Department of [facility] [address] [place] [id number] Tiarra Banks MD [address] [place] [address] Prolactin Social History Tobacco UseTypesPacks/DayYears UsedDateSmoking Tobacco: Every TnyFrmhwxlngv248.6 Started: 08/28/1999Smokeless Tobacco: NeverAlcohol UseStandard Drinks/Week CommentsYes0 (1 standard drink = 0.6 oz pure alcohol)10 drinks/week, twisted tea dailyChildcareAnswerDate UfmuhnkoEctwkpjhqFjervzz25/12/2019EmploymentAnswerDate EnvpceivCxtwmnqzbzZljcijy25/12/2019Hunger ScreeningAnswerDate RecordedWithin the past 12 months we worried whether our food would run out before we got money to buy more.Never True01/28/2025Within the past 12 months the food we bought just didn't last and we didn't have money to get more.Never True01/28/2025 CommentsUnknownSex and Gender InformationValueDate RecordedSex Assigned at Not on fileLegal CxbKpqyri02/06/2015 12:03 PM EDTGender IdentityNot on file Sexual OrientationNot on filedocumented as of this encounter Plan of Treatment DateTypeDepartmentCare Team (Latest Contact Info)Hezyiyofujo33/22/2026 10:15 AM EDTSupport Visit [facility], A Department of [facility] [address] [place] [address] Tiarra Banks MD [address] [place] [address] documented as of this encounter Visit Diagnoses Not on filedocumented in this encounter Care Teams Team MemberRelationshipSpecialtyStart DateEnd Date No Pcp, [place] [address] PCP - General07/23/13documented as of this encounter
--- OUTSIDE RECORDS SUMMARY | 2025-04-15 15:34 | XMS_ITS | CCD ---
Author Organization [facility] CliniSynd Care Team Providers Care Recycling Tech Name Role Phone KITTY, DR GAVIRIA Attending Unavailable KITTY, DR GAVIRIA Consulting Unavailable KITTY, DR GAVIRIA Admitting Unavailable COLBY ., DR MAIN Primary Care Unavailable Aris Bishop MD Primary Care Provider [phone] Migdalia Crystal DO Attending Provider [phone] Aris Bishop MD Primary Care Provider [phone] Aris Bishop MD Primary Care Provider [phone] JOHN CEJA Attending Unavailable JOHN CEJA Referring Unavailable NO DANIELS Attending Unavailable JOHN CEJA Referring Unavailable CARLA EDEN Attending Unavailable JOHN CEJA Referring Unavailable NO DANIELS Attending Unavailable JOHN CEJA Referring Unavailable SOHAIL, LEROY T Attending Unavailable JOHN CEJA Referring Unavailable JOHN CEJA Attending Unavailable LEROY IVERSON T Attending Unavailable JOHN CEJA Referring Unavailable KASEY THEODORE Attending Unavailable JOHN CEJA Referring Unavailable BRAXTON IVERSONEMY T Attending Unavailable JOHN CEJA Referring Unavailable BRAXTON IVERSONEMY T Attending Unavailable JOHN CEJA Referring Unavailable KASEY THEODORE Attending Unavailable JOHN CEJA Referring Unavailable BLACKSESTHER, LEROY T Attending Unavailable JOHN CEJA Referring Unavailable JR. BROWN GEORGE C Attending Unavaila ILDEFONSO Deutsch Attending Unavailable HELDER TANG Attending Unavailable HELDER TANG Attending Unavailable HELDER TANG Attending Unavailable OSMAR EID Attending Unavailab le OSMAR EID Referring Unavailab le NO PCP, NO PCP Primary Care Unavailable JOHN CEJA Attending Unavailable JOHN CEJA Referring Unavailable NO PCP, NO PCP Primary Care Unavailable JOHN CEJA Referring Unavailable NO PCP, NO PCP Primary Care Unavailable VERHONAHEED, SYD N Attending Unavailable JOHN CEJA Referring Unavailable NO PCP, NO PCP Primary Care Unavailable VERHOFF, SYD N Attending Unavailable VERHOFF, SYD N Referring Unavailable NO PCP, NO PCP Primary Care Unavailable VERHOFF, SYD N Attending Unavailable HERRERA, ILAN E Referring Unavailable NO PCP, NO PCP Primary Care Unavailable HERRERA, ILAN E Admitting Unavailable HERRERA, ILAN E Attending Unavailable HERRERA, ILAN E Referring Unavailable NO PCP, NO PCP Primary Care Unavailable VERHOFF, SYD N Attending Unavailable VERHOFF, SYD N Referring Unavailable NO PCP, NO PCP Primary Care Unavailable VERHOFF, SYD N Referring Unavailable NO PCP, NO PCP Primary Care Unavailable VERHOFF, SYD N Attending Unavailable VERHOFF, SYD N Referring Unavailable NO PCP, NO PCP Primary Care Unavailable HERRERA, ILAN E Admitting Unavailable HERRERA, ILAN E Attending Unavailable VERHOFF, SYD N Referring Unavailable NO PCP, NO PCP Primary Care Unavailable OSMAR EID Referring Unavailab le NO PCP, NO PCP Primary Care Unavailable Allergies Allergy ClassificationReported Allergen(s)Allergy TypeDate of OnsetReaction(s) Facility (5 sources)Codeine; Translations: [CODEINE]Drug Vbcnwpc55-60-6643[facility] (20 sources)CodeineDrug Qoxghvd26-50-8863FvqtjcoWVCF Healthcare Work Phone: (20 sources)Prednisone; Translations: [PREDNISONE]Allergy to dkimenbzp04-09-1409 [facility] (20 sources)Wound Dressing AdhesiveDrug Urzhxum02-17-7163IotdUGKO Healthcare (2 sources)Adhesive agent; Translations: [ADHESIVE]Propensity to adverse reactions to drug (disorder)60-84-8801RasZvrmos Repository (2 sources)ADHESIVE TAPE-SILICONES; Translations: [ADHESIVE TAPE-SILICONES] Propensity to adverse reactions to drug (disorder)53-37-0684ScxSthouj Repository Medications Current Medications MedicationDrug Class(es)DatesSig (Normalized)Sig (Original)carvedilol 12.5 mg oral tablet (8 sources)alpha-Adrenergic Efra, beta-Adrenergic BlockerStart: 09-04-2024 take 1 tablet by mouth in the morningcarvedilol (Coreg) 12.5 MG tablet Take 12.5 mg by mouth in the morning and 12.5 mg in the evening. Take with meals. 09/04/2024 ActivehydroCHLOROthiazide 25 mg oral tablet (8 sources)Thiazide Diuretictake 1 tablet by mouth once dailyhydroCHLOROthiazide (HYDRODiuril) 25 MG tablet Take 25 mg by mouth Daily ActivemedroxyPROGESTERone acetate 10 mg oral tablet (3 sources)ProgestinStart: 02-04-2025 End: 43-27-5462elsf 1 tablet by mouth once dailymedroxyPROGESTERone (Provera) 10 MG tablet Indications: Amenorrhea Take 1 tablet (10 mg) by mouth Daily Take 1 tablet by mouth daily for 7 days beginning on day 16 of the menstrual cycle. 14 tablet 02/04/2026 Activemeloxicam 15 mg oral tablet (10 sources)Nonsteroidal Anti-inflammatory DrugStart: 07-46-0925xbcc 1 tablet by mouth once dailymeloxicam (Mobic) 15 MG tablet Take 15 mg by mouth Daily 01/28/2025 ActiveStart: 01-17-2025 End: 00-97-1621rira 1 tablet by mouth once dailymeloxicam (Mobic) 7.5 MG tablet Take 7.5 mg by mouth Daily 01/17/2025 02/04/2025 Discontinued (Other)24 hr metFORMIN hydrochloride 500 mg extended release oral tablet (3 sources)BiguanideStart: 02-04-2025 End: 38-10-8688vuti 1 tablet by mouth every twenty-four hours at mealtime metFORMIN XR (Glucophage-XR) 500 MG 24 hr tablet Indications: Insulin resistance Take 1 tablet (500mg) by mouth in the evening. Take with meals Do not crush, chew, or split. 30 tablet 11 02/04/2025 02/04/2026 Activeterbinafine 250 mg oral tablet (6 sources)Allylamine AntifungalStart: 03-24-2024 End: 27-65-5686alcx 1 tablet by mouth once dailyterbinafine (LamISIL) 250 MG tablet Indications: Onychomycosis Take 1 tablet (250 mg) by mouth Daily 90 tablet 03/24/2024 06/22/2024 Active Completed/Discontinued Medications MedicationDrug Class(es)DatesSig (Normalized)Sig (Original)celecoxib 200 mg oral capsule (19 sources)Nonsteroidal Anti-inflammatory DrugStart: 07-02-2024 End: 83-90-4538huiq 1 capsule by mouth once dailycelecoxib (CeleBREX) 200 MG capsule Indications: Acute pain of left shoulder , Scapular dyskinesis Take 1 capsule (200 mg) by mouth Daily 30 capsule 1 07/02/2024 08/26/2024 Discontinued (Therapy completed)cyclobenzaprine hydrochloride 10 mg oral tablet (7 sources)Muscle RelaxantStart: 01-17-2025 End: 78-55-4030pbnq 1 tablet by mouth three times daily as needed for muscle spasmscyclobenzaprine (Flexeril) 10 MG tablet Take 10 mg by mouth 3 (three) times a day as needed for muscle spasms 01/17/2025 02/04/2025 Discontinued (Other)methylPREDNISolone (6 sources)CorticosteroidStart: 03-19-2024 End: 42-95-9785civoemJVUUTYOckapr (Medrol Dospak) 4 MG tablets Indications: Lichen planus Take as directed on package. 21 tablet 03/19/2024 03/25/2024 DiscontinuedStart: 09-29-4392bjpjdpHRWPAOWagpmf (Medrol Dospak) 4 MG tablets Indications: Lichen planus Take as directed on package. 21 tablet 03/19/2024 Active Problems Active Problems Problem ClassificationProblemDateDocumented DateEpisodic/Chronic Administrative/social admission (2 sources)Patient encounter status; Translations: [Person consulting for explanation of examination or test findings]94-53-6300XdavkfzkCnmhrjn and fatigue (2 sources)Fatigue; Translations: [Other fatigue]42-45-6066ZljxiryqSifofrjap disorders (6 sources)Amenorrhea; Translations: [Amenorrhea, unspecified]55-62-8404Pisjyac Mycoses (5 sources)Onychomycosis; Translations: [Tinea unguium]90-54-6373OqjevlcfNbdls and unspecified benign neoplasm (2 sources)Leiomyoma; Translations: [Benign neoplasm of connective and other soft tissue, unspecified]18-70-3476YxitrqskPwria and unspecified benign neoplasm (2 sources)Benign neoplasm of pituitary gland; Translations: [Benign neoplasm of pituitary gland]Onset: 12-13-6499BfjscovbRucrz connective tissue disease (2 sources)Pain in right foot; Translations: [Pain in right foot]03-19-2024 EpisodicOther connective tissue disease (2 sources)Myofascial pain; Translations: [Myalgia, other site]07-02-2024 EpisodicOther endocrine disorders (1 source)Hyperprolactinemia; Translations: [Hyperprolactinemia]Onset: 90-48-8994HnfifxzUmjuz hereditary and degenerative nervous system conditions (8 sources)Finding of scapular structure; Translations: [Other specified extrapyramidal and movement disorders]34-72-9258WeezseuQecik inflammatory condition of skin (2 sources)Lichen planus; Translations: [Lichen planus, unspecified]03-19-2024 EpisodicOther non-traumatic joint disorders (4 sources)Derangement of left shoulder joint; Translations: [Other specific joint derangements of left shoulder, not elsewhere classified]76-65-6219Vpzywgd Other non-traumatic joint disorders (1 source)Other specific joint derangements of left shoulder, not elsewhere classified; Translations: [Other specific joint derangements of left shoulder, not elsewhere classified]Onset: 77-92-6842KkmzcydVyedq non-traumatic joint disorders (10 sources)Pain in left shoulder; Translations: [Pain in joint, shoulder region]38-40-5360XymrsptmAwdkb nutritional; endocrine; and metabolic disorders (2 sources)Insulin resistance; Translations: [Insulin resistance]02-04-2025 ChronicSpondylosis; intervertebral disc disorders; other back problems (3 sources)Spondylosis without myelopathy or radiculopathy, cervical region; Translations: [Thoracic spondylosis without myelopathy]Onset: 16-31-3477Axkffpe Spondylosis; intervertebral disc disorders; other back problems (10 sources)Acute thoracic back pain; Translations: [Pain in thoracic spine] Onset: 324421-34-4378BjayyrhlFnjiorenegzx (2 sources)Acute pain of left lxmunxyc84-51-6721Krpqpjqneqgt (2 sources)Finding of scapular scrjfzhje78-13-0498Bxgtcwoorhhz (1 source)New PatientOnset: 03-05-2025 Past or Other Problems Problem ClassificationProblemDateDocumented DateEpisodic/ChronicImmunizations and screening for infectious disease (1 source)Encounter for screening for human papillomavirus (HPV); Translations: [ENC SCREENING HUMAN PAPILLOMAVIRUS]Onset: 54-46-0735NbyfvierRjotz non-traumatic joint disorders (1 source)Shoulder painOnset: 67-54-6673UbqlfvtkJblhn screening for suspected conditions (not mental disorders or infectious disease) (4 sources)Encounter for screening for malignant neoplasm of cervix; Translations: [ENC SCREENING MALIG NEOPLASM CERV]Onset: 55-07-1978Zzjnjmrc Results Test NameValueInterpretationReference RangeFacilityCORTISOLon 03-07-2025 CORTISOL, TOTAL10.8 ug/dLNormHolzer Health SystemComment on above:Order Comment: Drawn between 8-9am Due to the diurnal variation of cortisol levels in normal subjects, all cortisol measurments should be referenced to the time of day of sample collection. AM Cortisol Age>=6 6.7-22.4 ug/dL PM Cortisol Age>=6 <10 ug/dLPerformed By: #### HUMBERTO #### [facility] ([facility]) [address] [place] [address] VIRESTRADIOLon 18-92-5982XXPUMRQEP50.0 pg/mLNormalDetwiler Memorial HospitalComuniversity of michigan health on above:Order Comment: NON- FEMALES Mid follicular: 25-115 pg/mL Ovulatory [...] impact on estradiol recovery when using this assay.Performed By: #### ESTD #### [facility] ([facility]) [address] [place] [address] VIRFOLLICLE STIMULATING HORMONEon 16-67-2298CZHNYZSQ STIM HORMONE7.7 mIU/mLNormalDetwiler Memorial HospitalComment on above:Order Comment: NORMAL FEMALE: Luteal 1.8-5.1 mIU/mL Follicular 3.8-8.8 mIU/mL Mid Cycle 4.5-22.5 mIU/mL Post Therese 16.7-113.6 mIU/mLPerformed By: #### FSH #### [facility] ([facility]) [address] [place] [address] VIRINSULIN-LIKE GROWTH FACTOR-1, MASS SPECTROMETRYon 03-07-2025 INSULIN-LIKE GROWTH FACTOR-1, MASS SPECTROMETRYIGFMS INSULIN-LIKE GROWTH FACTOR- 1, MASS SPECTROMETRY CancelledTwin City HospitalLUTEINIZING HORMONEon 29-04-8073DNCUSFSXWSW HORMONE5.2 mIU/mLNormalDetwiler Memorial HospitalComment on above:Order Comment: NORMAL FEMALEFollicular 2.1-10.9 mIU/mLMid Cycle 19.2-103 mIU/mLLuteal 1.2-12.9 mIU/mLPost [place] 10.9-58.6 mIU/mL Performed By: #### LH ####[facility] ([facility])[address], [place] [address] VIRMAYO GENERIC ORDERon 63-53-7207EJBZ RESULTSEE COMMENTSTwin City HospitalComuniversity of michigan health on above:Result Comment: Test Result Flag Unit RefValue IGF-1, LC/MS IGF-1, LCMS 111 ng/mL 53-331 Z-Score (Female) -0.5 SD -2.0 - +2.0 This test was developed and its analytical performance characteristics have been determined by [facility]. It has not been cleared or approved by the FDA. This assay has been validated pursuant to the CLIA regulations and is used for clinical purposes. Test Performed by: [facility] [address] [place] [address]Aetbokdzx By: #### MGO ####[facility] ([facility])[address] [place] [address] VIRPROLACTINon 03-07-2025 EVVHGFZUL216.5 ng/mLHigh3.3-26.7ProMemorial Hermann Orthopedic & Spine HospitalComment on above: Performed By: #### PROL #### [facility] ([facility]) [address] [place] [address] VIRT4, FREEon 56-94-7091Prkd T4 [Mass/Vol]0.86 ng/dLNormal 0.61-1.60ProMemorial Hermann Orthopedic & Spine HospitalComment on above:Performed By: #### FT4 #### [facility] ([facility]) [address] [place] [address] VIRMR Pituitary and Sella turcica WO and W contrast Faye 60-82-7934[address] [address] Magnetic Resonance Report Signed Patient: SUSAN LENTZ MR#: [id number] : 1985 Acct:[id number] Age/Sex: 40 / F ADM Date: 02/11/25 Loc: MRI Attending Dr: Helder Tang D.O. Ordering Physician: Helder Tang D.O. Date of Service: 02/11/25 Procedure(s): MR pituitary wo/w con Accession Number(s): [id number] cc: Helder Tang D.O.; Aris Bishop M.D. The [address] [address] Patient Name: SUSAN LENTZ MRN: [id number] date: 1985 Sex: F Assigned Patient Location: MRI Current Patient Location: MRI Accession/Order Number: [id number] Exam Date: 02/11/2025 07:00 Report Date: 02/11/2025 09:42 At the request of: HELDER TANG DO Procedure: MR pituitary wo/w con MR pituitary wo/w con 02/11/2025 7:51 AM SIGN AND SYMPTOMS: ELEVATED PROLACTIN LEVELS PROTOCOL: Multiplanar multisequence MR images of the brain with and without IV contrast CONTRAST: 18 mL of intravenous [...] of hypoenhancement changes accompanying T1 hyperintense signal layering dependently on precontrast T1 images. This is most consistent with a pituitary microadenoma possibly complicated by proteinaceous debris or previous hemorrhage. The pituitary stalk is deviated to the left midline as a result. MR/MR pituitary wo/w con IMPRESSION: Centered to the right of midline within the sella is a 9 x 8 x 6 mm area of hypoenhancement changes accompanying T1 hyperintense signal layering dependently on precontrast T1 images. This is most consistent with a pituitary microadenoma possibly complicated by proteinaceous debris or previous hemorrhage. No acute intracranial pathology or abnormal postcontrast enhancement is noted otherwise. Impression dictated by: Jones Diallo M.D. 02/11/2025 9:42 AM Dictation Location: [place] [address] Electronically authenticated by: [id number] Y Date: 02/11/2025 09:42 Dictated By: Jones Diallo M.D. Signed By: 02/11/2545 DD/ 1 TD/TT: Sales Development Executive:BROOKadiologjulián, Radiologist, - 02/11/2025 [place] [address] Magnetic Resonance Report Signed Patient: SUSAN LENTZ MR#: [id number] : 1985 Acct:[id number] Age/Sex: 40 / F ADM Date: 02/11/25 Loc: MRI Attending Dr: Heldre Tang D.O. Ordering Physician: Helder Tang D.O. Date of Service: 02/11/25 Procedure(s): MR pituitary wo/w con Accession Number(s): [id number] cc: Helder Tang D.O.; Aris Bishop M.D. The [place] [address] Patient Name: SUSAN LENTZ MRN: [id number] date: 1985 Sex: F Assigned Patient Location: MRI Current Patient Location: MRI Accession/Order Number: [id number] Exam Date: 02/11/2025 07:00 Report Date: 02/11/2025 09:42 At the request of: HELDER TANG DO Procedure: MR pituitary wo/w con MR pituitary wo/w con 02/11/2025 7:51 AM SIGN AND SYMPTOMS: ELEVATED PROLACTIN LEVELS PROTOCOL: Multiplanar multisequence MR images of the brain with and without IV contrast CONTRAST: 18 mL of intravenous [...] of hypoenhancement changes accompanying T1 hyperintense signal layering dependently on precontrast T1 images. This is most consistent with a pituitary microadenoma possibly complicated by proteinaceous debris or previous hemorrhage. The pituitary stalk is deviated to the left midline as a result. MR/MR pituitary wo/w con IMPRESSION: Centered to the right of midline within the sella is a 9 x 8 x 6 mm area of hypoenhancement changes accompanying T1 hyperintense signal layering dependently on precontrast T1 images. This is most consistent with a pituitary microadenoma possibly complicated by proteinaceous debris or previous hemorrhage. No acute intracranial pathology or abnormal postcontrast enhancement is noted otherwise. Impression dictated by: Jones Diallo M.D. 02/11/2025 9:42 AM Dictation Location: [place] [address] Electronically authenticated by: [id number] Y Date: 02/11/2025 09:42 Dictated By: Jones Diallo M.D. Signed By: 02/11/2545 DD/ TD/TT: Sales Development Executive: [facility] HealthcareRadiology Study observation (narrative)[facility] Pituitary and Sella turcica WO and W contrast IVOrdered By: Radiologist Radiology on 65-02-5497MDUEMissouri Southern Healthcare Work Phone: all CBC WITH AUTO DIFFon 96-99-1430WSOQMDNSR ABSOLUTE [id number] HealthcareBasophils/100 WBC (Bld)0.4 %0.2 - 2.0 %[facility] Eosinophils/100 WBC (Bld)1.7 %0.9 - 7.0 %[facility] HealthcareErythrocyte distribution width (RBC) [Ratio]15.7 %High11.0 - 15.0 %[facility] HealthcareHematocrit (Bld) [Volume fraction]42.1 %36.0 - 48.0 %[facility] HealthcareHemoglobin (Bld) [Mass/Vol] 14.1 g/dL12.0 - 16.0 g/dLLOGAN REGIONAL [facility]OSPITAL HealthcareIMMATURE GRANULOCYTES ABS AUTO0.05High NOM HealthcareImmature granulocytes/100 WBC (Bld)0.6 %High0.0 - 0.5 %[facility] HealthcareInterpretation and review of laboratory resultsAbnormalNOKY Healthcare LYMPHOCYTES ABSOLUTE [id number] HealthcareLymphocytes/100 WBC (Bld)33.1 %20.5 - 60.0 %[facility] CenterH (RBC) [Entitic mass]32.8 pg26.7 - 34.0 pgNOSac-Osage HospitalHC (RBC) [Mass/Vol]33.5 g/dL29.9 - 35.2 g/dLNOSac-Osage HospitalV (RBC) [Entitic vol]97.9 fL81.0 - 99.0 fLNOKY HealthcareMONOCYTES ABSOLUTE AUTO0.7NOMS HealthcareMonocytes/100 WBC (Bld)7.7 %1.7 - 12.0 %NOM HealthcareNEUTROPHILS ABSOLUTE AUTO5.1NOMS HealthcareNeutrophils/100 WBC (Bld)56.5 %43.0 - 75.0 %NOM HealthcarePlatelet mean volume (Bld) [Entitic vol]9.8 fL9.5 - 13.5 fLNOKY HealthcareTBH EO #0.2NOMS HealthcareTBH [id number] [facility] HospitalTBH RBC4.3NOMS HealthcareTBH [id number] HealthcareCLINISYNCNOMS HealthcareUS PELVIS W/ TRANSVAGINALon 30-05-9325[place], [place] [address] Ultrasound Report Signed Patient: SUSAN LENTZ MR#: [id number] : 1985 Acct:[id number] Age/Sex: 39 / F ADM Date: 01/24/25 Loc: US Attending Dr: Kashmir Davis Ordering Physician: Kashmir Davis Date of Service: 01/24/25 Procedure(s): US pelvis w/ transvaginal Accession Number(s): [id number] cc: Kashmir Davis; Aris Bishop M.D. [address] [address] Patient Name: SUSAN LENTZ MRN: [id number] date: 1985 Sex: F Assigned Patient Location: US Current Patient Location: US Accession/Order Number: [id number] Exam Date: 01/24/2025 13:58 Report Date: 01/24/2025 14:57 At the request of: KASHMIR DAVIS Procedure: US pelvis w/ transvaginal Pelvic [...] Jr., D.O. 01/24/2025 2:57 PM Dictation Location: [place] [address] Electronically authenticated by: [id number] Y Date: 01/24/2025 14:57 Dictated By: Abhinav Grullon M.D. Signed By: 01/24/25 1500 DD/ 1457 TD/TT: Sales Development Executive:TBHRadiology, Radiologist, - 01/24/2025 [place] [address] Ultrasound Report Signed Patient: SUSAN LENTZ MR#: [id number] : 1985 Acct:[id number] Age/Sex: 39 / F ADM Date: 01/24/25 Loc: US Attending Dr: Kashmir Davis Ordering Physician: Kashmir Davis Date of Service: 01/24/25 Procedure(s): US pelvis w/ transvaginal Accession Number(s): [id number] cc: Kashmir Davis; Aris Bishop M.D. The [address] [address] Patient Name: SUSAN LENTZ MRN: [id number] date: 1985 Sex: F Assigned Patient Location: US Current Patient Location: US Accession/Order Number: [id number] Exam Date: 01/24/2025 13:58 Report Date: 01/24/2025 14:57 At the request of: KASHMIR DAVIS Procedure: US pelvis w/ transvaginal Pelvic [...] Jr., D.O. 01/24/2025 2:57 PM Dictation Location: [place] [address] Electronically authenticated by: [id number] Y Date: 01/24/2025 14:57 Dictated By: Abhinav Grullon M.D. Signed By: 01/24/25 1500 DD/ 1457 TD/TT: Sales Development Executive: ASHLEY HealthcareRadiology Study observation (narrative)NOMThania HealthcareUS PELVIS W/ TRANSVAGINALOrdered By: Radiologist Radiology on 96-81-1279WYAE [employer] Work Phone: XR SPINE CERVICAL 3 VWS OR LESSon 56-88-0058XK SPINE CERVICAL 3 VWS OR LESSXR SPINE CERVICAL 3 VWS OR LESS CERVICAL SPINE 3 VIEW COMPARISON: None. HISTORY: Cervical radiculopathy. . IMPRESSION: * No evidence for an acute fracture. No subluxation. C7-T1 level is partially obscured by the shoulders. * C5-6 disc space narrowing with posterior endplate spurring. Diffuse facet arthropathy. Finalized by Cliff Cantor MD on 12/17/2024 9:41 [facility] CenterMR [facility] WO CONTon 00-08-5665TD THORACIC SPINE WO CONTMR THORACIC SPINE WO CONT EXAM: MRI THORACIC [...] height throughout the thoracic spine. The disc spacelevels of the thoracic spine are normal. Finalized by August Obrien MD on 09/28/2024 12:18 [facility] MR SHOULDER LT WO CONTon 59-97-6168UU SHOULDER LT WO CONTMR SHOULDER LT WO CONT MR SHOULDER LT WO CONT CLINICAL INFORMATION: 39 years old Female with left shoulder pain times 3-5 months. COMPARISON: None PROCEDURE: Multiplanar multisequence images of the shoulder performed. No intravenous contrast. FINDINGS: ROTATOR [employer]IATED STRUCTURES Long head biceps tendon: No tear or significant tendinosis. The extra articular portion of the longhead of the biceps tendon is properly situated [...] by Cliff Cantor MD on 08/25/2024 1:20 [facility]XR SP[facility] THORACIC 2 VWSon 72-27-9581CZ SPINE THORACIC 2 VWSXR SPINE THORACIC 2 VWS EXAM: XR SPINE [...] by August Obrien MD on 08/24/2024 2:43 PMNormalProMedica Seton Medical CenterXR Shoulder - left 2 Viewson 31-71-7329Sojslmt Result: AP and Scap Y Left shoulder: No acute fracture or dislocation Minimal degenerative changes AC joint Visualized lung kingsley unremarkable Glenohumeral joint well aligned Impression: no acute process left shoulderNovant Health/N[facility]MC Radiology Study observation (narrative)NOMS HealthcareIGP,APTIMA HPV,AGE GDLNon 49-01-0384JAT GDLN ACOG TESTINGNote.[facility] HealthcareComment on above:TESTS RESULT FLAG UNITS REF RANGE LAB Clinician Provided Cytology Information Source.............Cervix;Endocervix No. of containers..01 ThinPrep Vial Age Algo ACOG Juana... 30-65 01 FLAG LEGEND: L-Low Normal,H-High Normal,LL-Alert Low,HH-Alert High <-Panic Low,>-Panic High,A-Abnormal,AA-Critical Abnormal Performed at: 01 =G [facility] [address] Lesley Metz MD, HPV APTIMANegativeNegativeLOGAN REGIONAL HOSPITAL HealthcareComment on above:This nucleic acid amplification test detects fourteen high- risk HPV types (16,18,31,33,35,39,45,51,52,56,58,59,66,68) without differentiation. Performed at: =G - [facility] [address], [place] [id number] Associate Chemist: Lesley Metz MD, Phone: [phone] Performed at: WB - [facility] [address], [place] [id number] Associate Chemist: Lesley Metz MD, Phone: [phone] IGP, APTIMA HPV, RFX 16/18,45NoteAbnormal.NOMS HealthcareComment on above:TESTS RESULT FLAG UNITS REF RANGE LAB DIAGNOSIS: [A] 02 EPITHELIAL CELL ABNORMALITY. ATYPICAL SQUAMOUS CELLS OF UNDETERMINED SIGNIFICANCE (ASC-US). Recommendation: [A] 02 Suggest follow up as clinically appropriate. Specimen adequacy: 02 Satisfactory for evaluation. Endocervical and/or squamous metaplastic cells (endocervical component) are present. Performed by: 02 Jody Merino, General Manager Food (ASCP) Electronically si... 02 Keren Jarrell MD, [...] Low,>-Panic High,A-Abnormal,AA-Critical Abnormal Performed at: 02 [facility] [address] [address] Lesley Metz MD, Interpretation and review of laboratory resultsAbnormMeadows Psychiatric Center BRUSH-SPATULA CERVIX ENDOCERVIX CLINISYNCMissouri Southern HealthcareALL CBC WITH AUTO DIFFon 84-94-8333GVTHGSLZO ABSOLUTE AUTO0.1NOMS HealthcareBasophils/100 WBC (Bld)0.5 %0.2 - 2.0 %NOMTwo [facility] Psychiatric Hospital Eosinophils/100 WBC (Bld)1.7 %0.9 - 7.0 %[facility] HealthcareErythrocyte distribution width (RBC) [Ratio]13.9 %11.0 - 15.0 %[facility] HealthcareHematocrit (Bld) [Volume fraction]42.5 %36.0 - 48.0 %[facility] HealthcareHemoglobin (Bld) [Mass/Vol]13.8 g/dL 12.0 - 16.0 g/dLMissouri Southern HealthcareIMMATURE GRANULOCYTES ABS AUTO0.07HighNOTwo Rivers Psychiatric HospitalImmature granulocytes/100 WBC (Bld)0.7 %High0.0 - 0.5 %[facility] Interpretation and review of laboratory resultsAbUniversity of [facility] LYMPHOCYTES ABSOLUTE AUTO2.6NOMS [facility] Methodist HospitalLymphocytes/100 WBC (Bld)25.5 %20.5 - 60.0 %[facility] HealthcareMCH (RBC) [Entitic mass]31 pg26.7 - 34.0 pgNOTwo Rivers Psychiatric Hospital MCHC (RBC) [Mass/Vol]32.5 g/dL29.9 - 35.2 g/dLMissouri Southern HealthcareMCV (RBC) [Entitic vol]95.5 fL81.0 - 99.0 fLNOTwo Rivers Psychiatric HospitalMONOCYTES ABSOLUTE AUTO0.8NOMS HealthcareMonocytes/100 WBC (Bld)7.9 %1.7 - 12.0 %NOMTwo Rivers Psychiatric HospitalNEUTROPHILS ABSOLUTE AUTO6.5NOMS HealthcareNeutrophils/100 WBC (Bld)63.7 %43.0 - 75.0 %NOMS HealthcarePlatelet mean volume (Bld) [Entitic vol]9.9 fL9.5 - 13.5 fLNOMS HealthcareTBH EO #0.2NOMS HealthcareTBH OMS413AAGO HealthcareTBH RBC4.45NOMS HealthcareTB WBC10.2NOMS HealthcareCLINISYNCNOMS HealthcareAST AND Marcus 09-27-3316WVFG HealthcareCytology Cervical or vaginal smear or scraping study Ordered By: Herlinda Saenz on 23-87-0203VAPNMissouri Southern HealthcarePAP ACOG PANEL 2: 30 to 65on 03-23-2022..NormalThe Cleveland Clinic FoundationComment on above:Result Comment: Performed at: WBPerformed By: #### [id number] #### [facility] [address] [place] [address] Dr. Douglas Palumbo Gdln ACOG Luglojv74-90BksshsPbnCleveland Clinic Euclid HospitalComment on above:Performed By: #### [id number] #### [facility] [address] [address] [address] Douglas StoutDIAGNOSIS:CommentNoCleveland Clinic Euclid HospitalComment on above: Result Comment: NEGATIVE FOR INTRAEPITHELIAL LESION OR MALIGNANCY. Performed at: WBPerformed By: #### [id number] #### [facility] [address] [place] [address] Dr. Douglas Cardenas AptimaNegativeNormalNegativeOhio State University Wexner Medical CenterComment on above:Result Comment: This nucleic acid amplification test detects fourteen high-risk HPV types (16,18,31,33,35,39,45,51,52,56,58,59,66,68) without differentiation. Performed at: =GPerformed By: #### [id number] #### [facility] [address] [address] [address] Douglas Cardenas Genotype ReflexCommentNoCleveland Clinic Euclid HospitalComment on above:Result Comment: Criteria not met, HPV Genotype not performed. Performed at: WBPerformed By: #### [id number] #### [facility] [address] [address] [address] Douglas StoutMethodology:CommentSumma Health Barberton Campus on above: Result Comment: This liquid based ThinPrep(R) pap test was screened with the use of an image guided system. Performed at: WBPerformed By: #### [id number] #### [facility] [address] [place] [address] Dr. Douglas StoutNote:CommentSumma Health Barberton Campus on above:Result Comment: The Pap smear is a screening test designed to aid in the detection of premalignant and malignant conditions of the uterine cervix. It is not a diagnostic procedure and should not be used as the sole means of detecting cervical cancer. Both false-positive and false-negative reports do occur. . Performed at: WBPerformed By: #### [id number] #### [facility] [address] [place] [address] Dr. Douglas StoutPerformed by:CommentSumma Health Barberton Campus on above: Result Comment: Fang Raza, General Manager Food (ASCP) Performed at: WBPerformed By: #### [id number] #### [facility] [address] [place] [address] Dr. Douglas StoutSpecimen adequacy:CommentSumma Health Barberton Campus on above:Result Comment: Satisfactory for evaluation. Endocervical and/or squamous metaplastic cells (endocervical component) are present. Performed at: WBPerformed By: #### [id number] #### [facility] [address] [place] [address] Dr. Douglas Stout Vital Signs Date TimeVital SignValuePerforming GhfyklbagPjxgxohu63-12-4209 13:00-0400Body mass index (BMI) [Ratio]28.81 kg/a6Bcust Kitty DO Work Phone: [facility] HealthcareZziwacqyvj36-41-9840 13:00-0400Body burzfk08.51 kgCore Kitty DO Work Phone: [facility] HealthcareOibhstavgj63-42-5483 13:00-0400Diastolic blood obgnfnll98 mm[Hg]Helder Kitty DO Work Phone: [facility] HealthcareWzyxyvqwxh63-19-1504 13:00-0400Systolic blood mm[Hg]Helder Kitty DO Work Phone: [facility] HealthcareNmkibslnqf59-80-7912 15:27-0400Body mass index (BMI) [Ratio]28.8 kg/j3Yfhlc Kitty DO Work Phone: [facility] HealthcareHtcqolzejy57-70-3669 15:27-0400Body takzdw38.45 kgCorey Kitty DO Work Phone: [facility] HealthcareEcaebcmwzj63-39-7249 15:27-0400Diastolic blood wpkidwqd66 mm[Hg]Helder Kitty DO Work Phone: [facility] HealthcareJqtyqfanqf28-87-8144 15:27-0400Systolic blood bivazhcm601 mm[Hg]Helder Kitty DO Work Phone: [facility] HealthcarePopfuhlibe79-89-9021 14:24-0500Body gsvebq397.3 cmCorey Kitty DO Work Phone: [address] [place] [address]Hygynumdmx90-00-4794 14:24-0500Body mass index (BMI) [Ratio]28.86 kg/m9Hyekr Kitty DO Work Phone: [facility] HealthcareNuhcncmzmz34-68-0824 14:24-0500Body qkgyac11.63 kgCorey Kitty DO Work Phone: [facility] HealthcareSwigsmxvty69-15-5459 14:24-0500Diastolic blood nituknfx13 mm[Hg]Helder Kitty DO Work Phone: [address] [address]Tyiudphmdi68-01-7184 14:24-0500Systolic blood rebtaggp037 mm[Hg]Helder Kitty DO Work Phone: [facility] HealthcareJucpgqkyyu92-35-2102 13:09-0400Body qacrlf478.3 cmAnthony Rusher DPM Work Phone: [facility] HealthcareDftjlyvmyw24-59-2937 13:09-0400Body mass index (BMI) [Ratio]28.32 kg/q8Pbpmhji Rusher DPM Work Phone: noMS Ulaqdmsecl51-78-7845 13:09-0400Body kg Ildefonso Mansfield DPM Work Phone: [facility] Encounters Encounter DateEncounter TypeCare ProviderFacilityStart: 82-17-5635semutccdqj [facility] WASHINGTONYPSt. [facility] Hospital HospitalStart: 03-05-2025 End: 21-34-2284fmrmkwkdgtJRFLKVS MAEVEZanesville City Hospital HospitalStart: 02-20-2025 End: 48-58-2103ghgxxululmZLCEFLG E HOGANProMedica Glenville HospitalStart: 02-11-2025 End: 63-29-2523Ohkgtrdqn Result EncounterCorey Kitty DO Work Phone: noms External Department UnsolicitedStart: 02-11-2025 End: 26-83-0846Yjzgkfvis Result EncounterCorey Kitty DO Work Phone: noms External Department UnsolicitedStart: 02-04-2025 End: 79-49-4523Ggjhyt flowsheetCorey Kitty DO Work Phone: noms [place] OBGYNStart: 02-04-2025 End: 43-13-5712Wmzsjl flowsheetCorey Kitty DO Work Phone: noms [place] OBGYNStart: 02-04-2025 End: 74-71-5647Azklky outpatient visit 15 minutesCorey Kitty DO Work Phone: noms [place] OBGYNComment on above:Encounter to discuss test results; Insulin resistance; Fibroids; AmenorrheaStart: 02-04-2025 End: 72-32-5404celuzdjifuVXGTA FAZIONot AvailableStart: 01-28-2025 End: 13-61-0279mcymvwkunuTGTCE N VERHOFFProMedica Glenville HospitalStart: 01-24-2025 End: 29-11-8569Egrjirfsm Result EncounterKashmir Davis NP Work Phone: noms External Department UnsolicitedStart: 01-24-2025 End: 10-46-8119Hclulidon Result EncounterKashmir Davis NP Work Phone: noms External Department UnsolicitedStart: 01-21-2025 End: 04-74-8804nvruvdhhgdBNMJE FAZIONot AvailableStart: 01-21-2025 End: 89-42-9679Zfkpjd outpatient visit 15 minutesCorey Kitty DO Work Phone: noms [place] OBGYNComment on above:Amenorrhea (Primary Dx); Irregular periods/menstrual cyclesStart: 01-21-2025 End: 33-35-4195Obdrjs flowsheetCorey Kitty DO Work Phone: noms [place] OBGYNStart: 01-21-2025 End: 56-09-7423Mziriy flowsheetCorey Kitty DO Work Phone: NO [place] OBGYNStart: 01-14-2025 End: 95-21-3387czhbnqajgnKepkgaz M Hoy MD Work Phone: [facility] Work Phone: Start: 01-14-2025 End: 69-59-4145Lmdjned encounter procedureNiclg Crystal DO-[facility] [place] Work Phone: Start: 12-16-2024 End: 36-79-0850loydmgxkclMLYCI N VERHOFFProMedica Glenville HospitalStart: 11-12-2024 End: 24-66-7175fbdpbbtgwxGVLSS N VERHOFFProMedica Glenville HospitalStart: 10-17-2024 End: 61-61-1955gsdidbqmasGINCNEF E HOGANProMedica Glenville HospitalStart: 10-01-2024 End: 25-42-3849jywnayhvreUEMLS N VERHOFFProMedica Glenville HospitalStart: 09-25-2024 End: 87-67-2670igqvfmrhznVDGLP N VERHOFFProMedica Mission Hospital of Huntington Parktart: 08-28-2024 End: 06-82-0475Vaxegdcge encounterJr. Jennifer Brown DO Work Phone: noms FB ORTHOPAEDICSComment on above:change apptStart: 08-27-2024 End: 30-61-2972tzconumeyySJXLU N VERHOFFProMedica Mission Hospital of Huntington Parktart: 08-26-2024 End: 91-51-8619Tjwsxo outpatient visit 15 minutesJr. Jennifer Brown DO Work Phone: noms FB ORTHOPAEDICSComment on above:Acute left-sided thoracic back pain (Primary Dx)Start: 08-26-2024 End: 17-18-0903xegcxbcgesJK., JENNIFER Chun LUCIANot AvailableStart: 08-25-2024 End: 86-82-9067zqfmbvdfhjPmxuhc T Blackston PT Work Phone: noms CI PTComment on above:Acute pain of left shoulder (Primary Dx); Scapular dyskinesisStart: 08-25-2024 End: 88-17-9559Rsfthq flowsheetLuis Albertoremy T Blacksesther PT Work Phone: noms CI PTStart: 08-25-2024 End: 78-07-3916Bemvgm flowsCash T Sohail PT Work Phone: noms CI PTStart: 08-22-2024 End: 83-69-4488ikchqjwkswYHMFNCF J MEYERProSelect Medical Specialty Hospital - Trumbullca Glen[facility] HospitalStart: 08-20-2024 End: 62-86-8516goyepdjnetIozwzkpd Brink PTANOMS CI PTComment on above:Acute pain of left shoulder (Primary Dx); Scapular dyskinesisStart: 08-20-2024 End: 21-54-1303Tpreny flowsheetMarshall Brink PTANOMS CI PTStart: 08-20-2024 End: 17-38-7782Cxczst flowsheetMarshall Brink PTANOMS CI PTStart: 08-14-2024 End: 53-46-8681sxqtrfbmszLhwxcc T Blackston PT Work Phone: noms CI PTComment on above:Acute pain of left shoulder (Primary Dx); Scapular dyskinesisStart: 08-14-2024 End: 67-17-6071Truuxu flowsGalileoy Tone Hoesther PT Work Phone: noms CI PTStart: 08-14-2024 End: 82-72-4937Egpxae flowsheetMingoy Tone Hoesther PT Work Phone: noms CI PTStart: 08-12-2024 End: 56-44-8507soqtxaqrsqLTXNTG Tone IVERSONNot AvailableStart: 08-06-2024 End: 83-74-9488mvxoypqhjeZVEHYISE BRINKNot AvailableStart: 08-05-2024 End: 88-92-4699lnxwnrodrbYFYDGH T BLACKSTONNot AvailableStart: 07-30-2024 End: 13-49-7738Vpstqn Susi COLLINS Work Phone: noms FB ORTHOPAEDICSStart: 07-30-2024 End: 52-72-4830Lwzcuy Susi COLLINS Work Phone: noms FB ORTHOPAEDICSStart: 07-30-2024 End: 43-57-4354Nqwwrk outpatient visit 15 minutesMagirish COLLINS Work Phone: noms FB ORTHOPAEDICSComment on above:Acute pain of left shoulder (Primary Dx); Acute left-sided thoracic back pain; Internal derangement of left shoulderStart: 07-30-2024 End: 31-46-1058nialogailwEFZKXLD J MEYERNot AvailableStart: 07-28-2024 End: 35-34-4281dbrigdbgqhPPNDIF T BLACKSTONNot AvailableStart: 07-28-2024 End: 77-93-0525Rllqqx flowsGalileoy Tone Hoesther PT Work Phone: noms CI PTStart: 07-28-2024 End: 12-25-5190Txmadj flowsYordyremy Tone Sohail PT Work Phone: noms CI PTStart: 07-21-2024 End: 85-34-2822fbnsddiwysUhzzrrqfv Daniels PTNOMS CI PTComment on above:Acute pain of left shoulder (Primary Dx); Scapular dyskinesisStart: 07-21-2024 End: 70-29-6956Gfmuiq flowsheetSammantha Daniels PTNOMS CI PTStart: 07-21-2024 End: 37-77-8886Jadpfs flowsheetSammantha Daniels PTNOMS CI PTStart: 07-17-2024 End: 32-43-7188rwvoislujcWwxzygq Kelbley PTANOMS CI PTComment on above:Acute pain of left shoulder (Primary Dx); Scapular dyskinesisStart: 07-17-2024 End: 74-48-5437Ulgobk flowsheetMelissa Kelbley PTANOMS CI PTStart: 07-17-2024 End: 62-24-9391Kbamye flowsheetMelissa Kelbley PTANOMS CI PTStart: 07-14-2024 End: 28-43-3948yvrzwizzkyJycnsniwg Daniels PTNOMS CI PTComment on above:Acute pain of left shoulder (Primary Dx); Scapular dyskinesisStart: 07-14-2024 End: 98-60-1948Wdfciw flowsheetSammantha Daniels PTNOMS CI PTStart: 07-14-2024 End: 65-40-9522Ipwpqg flowsheetSammantha Daniels PTNOMS CI PTStart: 07-02-2024 End: 61-41-5683Hsuwrw flowsNemo COLLINS Work Phone: noms FB ORTHOPAEDICSStart: 07-02-2024 End: 55-81-8431Xwbfyy Susi COLLINS Work Phone: noms FB ORTHOPAEDICSStart: 07-02-2024 End: 26-32-9189Zubhzq outpatient new 45 minutesMatttimbo COLLINS Work Phone: noms FB ORTHOPAEDICSComment on above:Acute pain of left shoulder (Primary Dx); Scapular dyskinesis; Chronic myofascial painStart: 07-02-2024 End: 91-69-3263ycaptlpgisHATKZFI J Estelle AvailableStart: 03-29-2024 End: 42-60-8313Bxzytyozi Result EncounterCorey Kitty DO Work Phone: noms External Department UnsolicitedStart: 03-29-2024 End: 26-31-8642Nujwhhwlu Result EncounterCorey Kitty DO Work Phone: noms External Department UnsolicitedStart: 03-25-2024 End: 49-16-5564Nqkcfa flowsheetCorey Kitty DO Work Phone: noms BCP OBStart: 03-25-2024 End: 04-16-7997Ecauby flowsheetCorey Kitty DO Work Phone: noms BCP OBStart: 03-25-2024 End: 00-60-1839Hayxqmzuu Result EncounterCorey Kitty DO Work Phone: noms External Department UnsolicitedStart: 03-25-2024 End: 13-63-7807Yfswrxv encounter procedureCorey Kitty DO Work Phone: [facility] Work Phone: Start: 03-25-2024 End: 82-25-4514Gmpjcuvj preventive med est patient 18-39 yrsCorey Kitty DO Work Phone: noms [facility] OBComment on above:Well woman exam with routine gynecological exam; Fatigue, unspecified typeStart: 03-25-2024 End: 77-02-3832jrtyrttagcXIYMU FAZIONot AvailableStart: 03-24-2024 End: 71-24-6085Atwlfn OnlyAnthony S Rusher DPM Work Phone: noms PODIATRYComment on above:Onychomycosis (Primary Dx)Start: 03-19-2024 End: 74-54-4067Ptfxps flowsheetAnthony S Rusher DPM Work Phone: noms PODIATRYStart: 03-19-2024 End: 39-71-2957Jntcko flowsheetAna Maríamary Monteiro Shyla DPM Work Phone: NOCB PODIATRYStart: 03-19-2024 End: 81-21-6217Iweyiw outpatient new 45 minutesAna Maríamary Monteiro Lamin DPM Work Phone: NOWQ PODIATRYComment on above:Onychomycosis (Primary Dx); Tinea pedis of right foot; Lichen planus; Right foot painStart: 03-19-2024 End: 34-34-5883swtoaofooqBURAHHH S RUSHERNot AvailableStart: 03-15-2022 End: 29-79-7728usqokxgnfvPT HELDER FAZIOFacility:H1 Procedures DateProcedureProcedure DetailPerforming ClinicianStart: 87-40-1761Jao brain brain stem w/o w/contrast materialCorey Kitty DO Work Phone: Start: 74-90-2548HT PELVIS W/ TRANSVAGINALKristina Ryan HUMAN PERFORMANCE TECHNOLOGIST Work Phone: Start: 29-83-8034ZLM CBC WITH AUTO DIFFKristina Ryan HUMAN PERFORMANCE TECHNOLOGIST Work Phone: Start: 15-97-1218Nsanr shoulder complete minimum 2 viewsMatthew J Marcial COLLINS Work Phone: Start: 13-22-9815VKI CBC WITH AUTO DIFFCorey Kitty DO Work Phone: Start: 12-17-7772XCV,APTIMA HPV,AGE GDLNCorey Kitty DO Work Phone: Start: 67-42-9467GSW AND ALTIldefonso Mansfield DPM Work Phone: Start: 44-17-7133Ntwa cerv/vag auto thin layer prep mnl screenCorey Kitty DO Work Phone: Plan of Treatment DateCare ActivityDetailAuthorStart: 04-15-2025 End: 77-13-2752Zrlimjb encounter /26/2025 2:00 PM EST [facility] [address] [place] [place] [address] Helder Tang, DO [address] [place] [address] NOMS [place] OBGYNStart: 02-04-2025 End: 37-49-6732Jjhqiuh encounter dqwregpnj29/17/2025 1:00 PM EDT Office Visit [facility] [address] [place] [place] [address] Helder Tang, DO [address] [place] [address] ArrivedNOMS [place]eder OBGYNComment on above:ArrivedStart: 01-21-2025 End: 82-34-2277JW PelvisUS Pelvis w/ TV Imaging Routine Amenorrhea Expected: 01/21/2025, Expires: 01/21/2026NOMS HealthcareComment on above:Expected: 01/21/2025, Expires: 01/21/2026Start: 09-23-2024 End: 44-77-9246Jpxruda encounter jgazsimcr84/06/2025 9:45 AM EDT Office Visit [facility] [address] [address] Jr. Jennifer Brown, DO [address] [facility] [address] [place] [address] NOMS FB ORTHOPAEDICSStart: 08-26-2024 End: 25-11-1940Xbdyint encounter lmxwvagmg80/08/2025 8:15 AM EDT Office Visit [facility] [address] [place] [address] Jr. Jennifer Brown, DO [address] [facility] [address] [place] [address] NOMS FB ORTHOPAEDICSStart: 08-25-2024 End: 64-82-6952jtxtqofriyHWNC CI PTComment on above:ArrivedStart: 08-20-2024 End: 11-70-5917bzljuaeinlBKIQ CI PTComment on above:Acute pain of left shoulder (Primary Dx); Scapular dyskinesisStart: 08-14-2024 End: 22-09-5272gzwhwjaecmZLCE CI PTComment on above:ArrivedStart: 08-12-2024 End: 72-64-8283nuphhancvf24/25/2025 5:00 PM EDT Treatment [facility] [address] [place] [address] [place] [address] Leroy Iverson, PT [address] [place] [address] [place] [address] NOMS CI PTStart: 08-06-2024 End: 94-97-2736kwmhksxukb02/19/2025 4:00 PM EDT Treatment [facility] [address] [place] [address] [place] [address] Kasey Theodore, TECHNOLOGY RISK INTERN NOMS CI PTStart: 08-04-2024 End: 27-72-8310tnwvnjkksa65/17/2025 4:30 PM EDT Treatment [facility] [address] [place] [address] [place] [address] Leroy Iverson, PT [address] [place] [address] [place] [address] NOMS CI PTStart: 07-30-2024 End: 49-71-6363VB Shoulder - left WO contrastMR shoulder left wo IV contrast Imaging Routine Internal derangement of left shoulder Expected: 07/30/2024 (Approximate), Expires: 07/30/2025NOMS HealthcareComment on above:Expected: 07/30/2024 (Approximate), Expires: 07/30/2025Start: 07-30-2024 End: 01-80-0337SZ Thoracic spine 2 ViewsXR thoracic spine 2 views Imaging Routine Acute left-sided thoracic back pain Expected: 07/30/2024 (Approximate), Expires: 07/30/2025[facility] Work Phone: Comment on above:Expected: 07/30/2024 (Approximate), Expires: 07/30/2025Start: 07-30-2024 End: 41-14-1447Bcylvuc encounter procedureNOMS FB ORTHOPAEDICSComment on above: Acute pain of left shoulder (Primary Dx)Start: 07-28-2024 End: 53-52-8386dqyvpmtxufJYBV CI PTComment on above:ArrivedStart: 07-23-2024 End: 74-20-0736Albimem encounter /05/2025 2:00 PM EST Office Visit [facility] [address] [facility] [place] [id number] Ildefonso Mansfield, DPM [address] [place], [place] [address] NOMS PODIATRYStart: 07-21-2024 End: 73-91-1309iisftcpdku93/03/2025 4:30 PM EST Treatment [facility] [address] [facility] [address] [place] [address] No Daniels, ROLLYNOMS CI PTStart: 07-17-2024 End: 67-49-4393mevxdoxktj93/27/2025 4:00 PM EST Treatment [facility] [address] [facility] [address] [place] [address] Carla Eden, TECHNOLOGY RISK INTERN NOM[facility] CI PTStart: 07-14-2024 End: 48-20-9584cltytgyypr47/24/2025 4:00 PM EST Evaluation [facility] [address] [facility] [address] [place] [address] No Daniels, PT Acute pain of left shoulder; Scapular dyskinesisNOMS CI PTComment on above: Acute pain of left shoulder; Scapular dyskinesisStart: 07-02-2024 End: 02-72-3640Noscyev encounter xmzbbxatq15/12/2025 1:30 PM EST Office Visit [facility] [address] [address] John Ceja, KARINA [address] [place] [address] [place], [place] [address] Acute pain of left shoulder (Primary Dx)[facility] Comment on above:Acute pain of left shoulder (Primary Dx)Start: 03-25-2024 End: 09-23-8289Pyjwp 1996 panel - Serum or PlasmaLipid panel Lab Routine Fatigue, unspecified type Expected: 03/25/2024 (Approximate), Expires: 03/25NOMS HealthcareComment on above:Expected: 03/25/2024 (Approximate), Expires: 03/25/2025Start: 03-25-2024 End: 99-67-2521Fdbxhto encounter procedureNOMS BCP OBComment on above:Arrived Start: 03-19-2024 End: 36-80-7744Brsqnrt aminotransferase [Enzymatic activity/volume] in Serum or PlasmaALT Lab Routine Onychomycosis Expected: 03/19/2024 (Approximate), Expires: 03/19/2025[facility] Work Phone: Comment on above:Expected: 03/19/2024 (Approximate), Expires: 03/19/2025Start: 03-19-2024 End: 77-15-5986Gnjibzjlt aminotransferase [Enzymatic activity/volume] in Serum or PlasmaAST Lab Routine Onychomycosis Expected: 03/19/2024 (Approximate), Expires: 03/19/2025NOMS HealthcareComment on above:Expected: 03/19/2024 (Approximate), Expires: 03/19/2025Start: 03-19-2024 End: 52-56-0809Dfsmqck encounter uzrzfrwcy85/30/2024 1:30 PM EDT Office Visit [facility] [address] [place] [address] Ildefonso Mansfield, DPM [address] [place], [place] [address] [facility] PODIATRYComment on above:ArrivedCBC W Auto Differential panel - BloodCBC and differential Lab Routine Fatigue, unspecified type Ordered: 03/25/2024[facility] HealthcareComment on above:Ordered: 03/25/2024BC W Auto Differential panel - BloodCBC and differential Lab Routine Amenorrhea Ordered: 01/21/2025[facility] HealthcareComment on above:Ordered: 01/21/2025omprehensive metabolic 2000 panel - Serum or PlasmaComprehensive metabolic panel Lab Routine Fatigue, unspecified type Ordered: 03/25/2024[facility] HealthcareComment on above: Ordered: 03/25/2024ytology Cervical or vaginal smear or scraping studyPap Smear Pathology and Cytology Routine Well woman exam with routine gynecological exam Ordered: 03/25/2024[facility] Healthcare Work Phone: comment on above:Ordered: 03/25/2024hCG, quantitative, pregnancyhCG, quantitative, Lab Routine Amenorrhea Ordered: 01/21/2025 [facility] HealthcareComment on above:Ordered: 01/21/2025Hemoglobin A1c/Hemoglobin.total in BloodHemoglobin A1c Lab Routine Fatigue, unspecified type Ordered: 03/25/2024[facility] HealthcareComment on above:Ordered: 03/25/2024 Hemoglobin A1c/Hemoglobin.total in BloodHemoglobin A1c Lab Routine Amenorrhea Ordered: 01/21/2025[facility] HealthcareComment on above:Ordered: 01/21/2025Human papilloma virus DNA [Presence] in Unspecified specimen by Probe with amplificationHPV DNA probe, amplified Microbiology Routine Well woman exam with routine gynecological exam Ordered: 03/25/2024[facility] HealthcareComment on above: Ordered: 03/25/2024rolactinProlactin Lab Routine Amenorrhea Ordered: 01/21/2025 [facility] HealthcareComment on above:Ordered: 01/21/2025Thyrotropin [Units/volume] in Serum or PlasmaTSH Lab Routine Fatigue, unspecified type Ordered: 03/25/2024 [facility] Healthcare Work Phone: combxrn on above:Ordered: 03/25/2024Thyrotropin [Units/volume] in Serum or PlasmaTSH Lab Routine Amenorrhea Ordered: 01/21/2025 [facility] Work Phone: comment on above:Ordered: 01/21/2025 Immunizations Immunization DateImmunizationNotesCare OnrvqtjtOwsjjpev83-71-1942wenfnol, mumps and rubella virus vaccineAnthony Rusher DPM Work Phone: [phone] [place], [place] [address]Vmfqnhwzog50-62-4818pbjppybjbj, tetanus toxoids and pertussis vaccineAnthony Rusher DPM Work Phone: [phone] [id number], tetanus toxoids and pertussis vaccineAnthony Rusher DPM Work Phone: [phone] [id number] poliovirus vaccine, live, oralAnthony Rusher DPM Work Phone: [phone] [address] [id number], tetanus toxoids and pertussis vaccineAnthony Rusher DPM Work Phone: [phone] [address] StreetDneqktaohu58-14-1964lmkzyihensz influenzae type b vaccine, conjugate unspecified formulationAnthony Rusher DPM Work Phone: [phone] [place] StreetMxevgfietr92-63-1439zlusthrtqa, tetanus toxoids and pertussis vaccineAnthony Rusher DPM Work Phone: [phone] [place], [place] [address]Kajxhrauut61-61-2039kuworuxny poliovirus vaccine, live, oralAnthony Rusher DPM Work Phone: [phone] [address] StreetMxezirdmwi46-00-6822jltplcjnun, tetanus toxoids and pertussis vaccineAnthony Rusher DPM Work Phone: [phone] [address] StreetMscgsuunjf93-46-6626fdyrufhsa poliovirus vaccine, live, oralAnthony Rusher DPM Work Phone: [phone] [place], [place] [address]Dnxwduhdma16-04-6198rouszhf, mumps and rubella virus vaccineAnthony Rusher DPM Work Phone: [phone] [place], [place] [address]Wvlxxnrwnz06-79-5193qaykwneww poliovirus vaccine, live, oralAnthony Rusher DPM Work Phone: [phone] [place] [address] Payers DatePayer CategoryPayerPolicy [id number] [id number] [facility] [place] [id number] [id number] [id number] 2..1.573594.3.57[id number] 2..1.421346.3.57[id number] 2..1.036133.3.57[id number] 2..1.109131.3.57[id number] 2..1.119576.3.57[id number] 2.0.1.128646.3.57[id number] 2.16840.1.061396.3.57[id number] 2.16840.1.438453.3.57[id number] 2.0.1.357788.3.579.2.475643-44-9339Rowyevr6360045 2.0.1.635101.3.579.2.534919-77-3187Ytpemmc5281476 2.0.1.889361.3.579.2.379811-53-6835Eigydsq5327055 2.0.1.247518.3.579.2.92[id number] 2..1.686074.3.579.2.674220-36-0983Zebioon8187924 2.0.1.401289.3.579.2.[id number] 2.0.1.038075.3.579.2.262298-04-3686Udoorun0757535 2.0.1.456466.3.57[id number] 2..1.693799.3.579.2.714884-77-2814Jjdlcud1104494 2.0.1.325551.3.579.2.5[id number] 2.840.1.872277.3.579.2.4[id number] 2.0.1.063553.3.57[id number] 2.16.840.1.900543.3.579.[id number] 2.16.840.1.761827.3.579.2.[id number] 2.16.840.1.236093.3.579.2.[id number] 2.16.840.1.516015.3.57[id number] 2.16.840.1.589094.3.579.2.34[id number] 2.16.840.1.066026.3.579.2.120[id number] 2.16.840.1.931960.3.579.2.12[id number] 2.16.840.1.567588.3.579.2.652188-86-0091Fecxzep206472031 2.16.840.1.852216.3.579.2.588851-29-0147Cnxauyq831498596 2.16.840.1.793446.3.579.2.93[id number] 2.840.1.164192.3.579.2.17[id number] Social History DateTypeDetailFacilityStart: 03-05-2023 End: 85-23-9447Gzrsrwa smoking status NHISSmokes tobacco dailyNOMS Healthcare History of tobacco useCigarette SmokerNOMS HealthcareStart: 10-08-2023 End: 80-86-2310Ukresjmpv beverage intakeCurrent drinker of alcohol (finding)[facility] HealthcareStart: 03-05-2023 End: 56-98-7589Vjgqwho of Social functionNOMS HealthcareStart: 03-05-2023 End: 53-14-8184Qhpbrkq use panelLOGAN REGIONAL HOSPITAL HealthcareStart: 58-82-0780Yguseyj Comment Patient started smoking 20 years ago (noted 03/15/22).Smokes 11-20 cigarettes/day after 31-60 minutes of waking up.[facility] HealthcareStart: 03-05-2023 Alcohol Comment3 or 4 drinks on a typical day / 2 to 4 times a month.[facility] HealthcareStart: 21-28-3020Ohh assigned at birthN[facility] HealthcareStart: 08-87-7982Lrkpcg identityIdentifies as female gender (finding)[facility] Start: 53-46-6498Wjebke orientationHeterosexual (finding)[facility] smoking status NHISUnknown if ever smokedDoctors Hospital Work Phone: SexFemale (finding)[facility] Clinical Notes 03-19-2024 to 02-04-2025 Note Date & FcqhFuynLxhxtzqz57-97-4624 History of Present illness Narrative* Lashon Terrell, WALLCOVERING HANGER - 02/04/2025 1:00 PM EDT Reason for Appointment: Patient ID: Susan Lentz is a 40 y.o. female who [...] nursing note reviewed. Exam conducted with a command post craftsman present. Vitals: Estimated body mass index is [...] to pharmacy. MRI is being precerted for elevatedprolactin. Pt to start provera to induce period. Pt voiced understanding. Documented by Lashon Tejada LPN on behalf of: Helder Tang DO documented in this encounterMissouri Southern HealthcarePnlwhsjdhc17-30-0531 History of Present illness Narrative* Kashmir Davis NP - 01/21/2025 3:00 PM EDT Reason for Appointment: Patient ID: Susan Lentz is a 39 y.o. female who [...] nursing note reviewed. Exam conducted with a command post craftsman present. Vitals: Estimated body mass index is [...] review all labs and imagining. Documented by Kashmir Davis NP on behalf of: Helder Tang DO documented in this encounterMissouri Southern HealthcareOmjreecbtw08-07-0076 Telephone encounter Note* Telephone Encounter - Sandra Lopez - 08/28/2024 2:55 PM EDT Susan seen Dr. Brown 08/26 he referred her [...] Dr. Brown to set up his appt. [facility] Ejspuhwnhy49-20-4033 Miscellaneous Notes* Telephone Encounter - Sandra Lopez - 08/28/2024 2:55 PM EDT Susan seen Dr. Brown 08/26 he referred her [...] set up his appt. documented in this encounterMissouri Southern HealthcareDszzgvqafw65-21-9881 History of Present illness Narrative* Jr. Jennifer Brown, - 08/26/2024 8:15 AM EDT Images from the original note were not included. EveryHISTORY OF PRESENT ILLNESS: EST PT Susan Lentz is an 39 y.o. @ female. (EST PT WITH [facility]) RECHECK LT SHOULDER PAIN - HERE FOR RESULTS; XRAY T-SPINE AND MRI LT SHOULDER DONE 08/22/24 @ [facility] - [facility] ALSO REFERRED PT TO PAIN MANAGEMENT [facility]; 1ST APPT IS TOMORROW (08/27/24) - FINISHED PT [facility]; TRIED DRY NEEDLING; DENIES RELIEF - S/P CELEBREX; DISCONTINUED DUE TO HEART PALPITATIONS MRI LT SHOULDER 08/22/24 [facility] 08/22/24 [facility] (L) SHOULDER 07/02/24 IN EPIC XRAY EXA 04/09/19 DEPO INJECTION 04/09/19 - NO RELIEF P.T [facility] (#4 VISITS) PAIN MANAGEMENT [facility]; 1ST VISIT WILL BE 08/27/24 NOTES SOME LATERAL SHOULDER AFTER PHYSICAL THERAPY-PAIN CONTINUES BETWEEN LT SCAPULA AND SPINE- DENIES RADIATING PAIN- DENIES N/T- PAIN IS CONSTANT- INCREASE PAIN WITH SNEEZING/YAWNING/COUGHING-NOTESSOME LIMITATIONS WITH SHOULDER ROM- +TYLENOL/IBUPROFEN - +WAKES [...] parathoracic soft tissues/ + pain medial scapular borderleft Neg MARCELL TEST, No winging noted. Range [...] for requiring urgent evaluation. documented in this encounterMissouri Southern HealthcareGwtxxgepmu61-39-9437 History of Present illness Narrative* Leroy Iverson, PT - 08/25/2024 4:00 PM EDT Images from the original note were not included. Physical Therapy Treatment Visit Patient Name: Susan Lentz Today's Date: 08/25/24 Encounter Diagnoses Name Primary? Acute pain of left shoulder Yes Scapular dyskinesis Visit number: 10 Timed Code Treatment : 30 minutes Total Treatment Time: 30 minutes Time In: 1622 Time Out: 1700 History: Pt states left shoulder has been gradually worsening over the last 3 months. Pt states shehas been noticing popping and tightness in shoulder but now having significant pain. States can barely buckle seat belt with left UE. Some pain in anterior shoulder but greatest most posterior and near shoulder blade. Pt states she has had multiple cortisone injections; however, never really noticed relief. Last injection was about 10 years ago. Precautions: [place] Subjective: Pt. Reports of no change in [...] strength to reduce reliance on rhomboid regions. Moderatecues needed to improve scapular movement and coordination. [...] to be instructed in home exercise program. 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 Date: documented in this encounterMissouri Southern HealthcareNzrllqyvnt47-04-8793 History of Present illness Narrative* Leroy Iverson, PT - 08/14/2024 4:00 PM EDT Images from the original note were not included. Physical Therapy Treatment Visit Patient Name: Susan Lentz Today's Date: 08/14/24 Encounter Diagnoses Name Primary? Acute pain of left shoulder Yes Scapular dyskinesis Visit number: 8 Timed Code Treatment : 25 minutes Total Treatment Time: 33 minutes Time In: 1600 Time Out: 1633 History: Pt states left shoulder has been gradually worsening over the last 3 months. Pt states shehas been noticing popping and tightness in shoulder but now having significant pain. States can barely buckle seat belt with left UE. Some pain in anterior shoulder but greatest most posterior and near shoulder blade. Pt states she has had multiple cortisone injections; however, never really noticed relief. Last injection was about 10 years ago. Precautions: [place] Subjective: Pt. Reports of no change in [...] strength to reduce reliance on rhomboid regions. Moderatecues needed to improve scapular movement and coordination. [...] to be instructed in home exercise program. Detention Goals: To be met in 10 weeks [...] Please sign below. Date: documented in this encounterMissouri Southern HealthcareNwnkbjmtkt56-12-4422 History of Present illness Narrative* KARINA Quiroz - 07/30/2024 1:15 PM EDT Images from the original note were not included. HISTORY OF PRESENT ILLNESS: EST PT Susan Lentz is an 39 y.o. @ female. (EST PT) RECHECK LT SHOULDER PAIN - S/P CELEBREX, TOPICAL CAPSAICIN CREAM, AND P.T AT [facility] (#4 VISITS) XRAY (L) SHOULDER 07/02/24 IN [facility] XRAY EXA 04/09/19 DEPO INJECTION 04/09/19 - NO RELIEF P.T [facility] (#4 VISITS) MINIMAL IMPROVEMENT WITH CELEBREX. +TYL [...] Reason: Specialty Services Required Referred to Provider: Ilan Herrera MD Requested Specialty: Pain Medicine Number [...] She has been doing physical therapy and takingCelebrex along with Tylenol without any significant improvement [...] for requiring urgent evaluation. documented in this encounterMissouri Southern HealthcareFnvhbshute36-74-2057 History of Present illness Narrative* No Daniels, PT - 07/21/2024 4:30 PM EST Images from the original note were not included. Physical Therapy Treatment Visit Patient Name: Susan Lentz Today's Date: 07/21/2024 Encounter Diagnoses Name Primary? Acute pain of left shoulder Yes Scapular dyskinesis Visit number: 3 Timed Code Treatment : 32 minutes Total Treatment Time: 47 minutes Time In: 4:30 PM Time Out: 5:22 PM History: Pt states left shoulder has been gradually worsening over the last 3 months. Pt states shehas been noticing popping and tightness in shoulder but now having significant pain. States can barely buckle seat belt with left UE. Some pain in anterior shoulder but greatest most posterior and near shoulder blade. Pt states she has had multiple cortisone injections; however, never really noticed relief. Last injection was about 10 years ago. Precautions: [place] Subjective: Left shoulder and scapular region pain [...] pt supine to cervical spine traction, upper trap, levator stretching , STM sitting left scapular [...] to be instructed in home exercise program. 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 Date: documented in this encounterMissouri Southern HealthcareZqhbotrsyu49-27-0099 History of Present illness Narrative* KARINA Quiroz - 07/02/2024 1:30 PM EST Images from the original note were not included. NAME: Susan Lentz : 1985 HISTORY OF PRESENT ILLNESS: NEW PT Susan Lentz is an 39 y.o. @ female. (NEW PT) PREVIOUSLY TX BY [facility] 2018. LT SHOULDER FOR YRS. NKI. XRAY TODAY EPIC 07/02/24 XRAY EXA 04/09/19 DEPO INJECTION 04/09/19 - NO RELIEF PAIN NEAR SCAPULA AND SPINE. OCCAS RADIATES TO RIBS. CONSTANT PAIN. WORSE WITH MOVEMENTS, COUGHING,SNEEZING, ETC. +TYL OR IBU WITH NO RELIEF. [...] age of 18, which have recently escalated inseverity over the past few weeks or month. She reports no new injury. There is no evidence of rash.Her sleep is not disturbed by her symptoms as she takes a sleeping pill at night. ALLERGIES The patient has an intolerance to oral steroids, which cause increased joint pain and swelling. MEDICATIONS Current: Alex PAST MEDICAL HISTORY: Past Medical History: Diagnosis [...] long-term use of Motrin. Tylenol can be usedif needed in addition to this. If symptoms persist, an MRI of the left shoulder will be considered,along with a discussion of cervical pathology or [...] for requiring urgent evaluation. documented in this encounterMissouri Southern HealthcareQvxhoeukrl13-41-4958 History of Present illness Narrative* Lashon Tejada LPN - 03/25/2024 2:00 PM EST Reason for Appointment: Patient ID: Susan Lentz is a 39 y.o. female who presents for [facility] Visit Patient presents today for Annual [...] nursing note reviewed. Exam conducted with a command post craftsman present. Vitals: Estimated body mass index is [...] by Lashon Tejada LPN on behalf of: Helder Tang DO documented in this encounterMissouri Southern HealthcareCnhnsxrikh92-66-9158 History of Present illness Narrative* Ildefonso Mansfield DPM - 03/19/2024 1:30 PM EDT Images from the original note were not included. Subjective Patient ID: Susan Lentz is a 39 y.o. 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 Shestates that since that time she has had [...] a few months ago after removing toenail Khmer. No treatment tried. She denies injury. Review [...] oral antifungals. Additionally I have discussed chemical matrixectomy.At this time the patient elects for oral antifungal therapy. A clean nail nipper was utilized to take a sample of the affected right hallux toenail and sent for pathological examination, fungal stain, and culture to guide antifungal therapy. A nail nipper and electric bur convex grinder were also utilizedto debride the affected nails to help reduce fungal load and to palliate the symptomatic nails. Once nail specimen reviewed if there is positive fungal infection then she will get lab work. I printedout in order requisition for her today because she will get this done at [facility]. When I receive these results I will prescribe oral antifungal therapy if appropriate. Follow-up in 4 months. Additionally patient has clinical exam consistent with tinea pedis. Possibility of lichen planus aswell given her history of biopsy but this was many years ago and on her wrist. Recommend oral Medrol Dosepak at this time to reduce pruritic symptomatology along the plantar aspect of the right foot.Also believe there is a component of fungal infection given the scaling, erythema, peeling of the skin in a moccasin distribution. Recommend oral antifungal therapy. At this time we will see if thereis fungal disease in the nail as well [...] or corrected. Thank you for your understanding. Ildefonso Mansfield DPM documented in this encounterLOGAN REGIONAL [facility]PITAL HealthcareEvaluation note* Diagnosis Onychomycosis- Primary Dermatophytosis of nail Tinea [...] Chronic myofascial pain documented in this encounter [facility] HealthcareEvaluation note* Diagnosis Acute pain of left shoulder- Primary Scapular dyskinesis Lack of coordination documented in this encounter [facility] HealthcareEvaluation note* Diagnosis Acute pain of left shoulder- Primary Scapular dyskinesis Lack of coordination documented in this encounter [facility] HealthcareEvaluation note* Diagnosis Acute pain of left shoulder- Primary Acute left-sided thoracic back pain Internal derangement of left shoulder documented in this encounter [facility] HealthcareEvaluation note* Diagnosis Acute pain of left shoulder- Primary Scapular dyskinesis Lack of coordination documented in this encounter [facility] HealthcareEvaluation note* Diagnosis Acute pain of left shoulder- Primary Scapular dyskinesis Lack of coordination documented in this encounter [facility] HealthcareEvaluation note* Diagnosis Acute left-sided thoracic back pain- Primary documented in this encounter [facility] HealthcareEvaluation noteNo assessment information availableDoctors Hospital Work Phone: Evaluation note* Diagnosis Encounter to discuss test results Other specified counseling Insulin resistance Other abnormal glucose Fibroids Leiomyoma of uterus, unspecified Amenorrhea Absence of menstruation documented in this encounter [facility] HealthcareEvaluation note* Diagnosis Amenorrhea- Primary Absence of menstruation Irregular periods/menstrual cycles documented in this encounter [facility] HealthcareReason for referral (narrative)No reason for referral information availableDoctors Hospital Work Phone: Revxwt for visit Narrative* Consultation (Routine) - AuthorizedSpecialtyDiagnoses / ProceduresReferred By ContactReferred To ContactPhysical Therapy Diagnoses Acute pain of left shoulder Scapular dyskinesis Procedures CO OFFICE/OUTPATIENT [facility] 60 MINUTES John Ceja PA [address] [facility] [address] [place] [address] Phone: tel: fax: Leroy Iverson, PT [address] [facility] [address] [place] [address] Phone: tel: fax: Referral IDStatusReasonStart DateExpiration DateVisits RequestedVisits [id number] Consult and Treat 2/ [facility] HealthcareReason for visit Narrative* Consultation (Routine) - Authorized SpecialtyDiagnoses / ProceduresReferred By ContactReferred To ContactPhysical Therapy Diagnoses Acute pain of left shoulder Scapular dyskinesis Procedures CO OFFICE/OUTPATIENT [facility] MDM 60 MINUTES John Ceja PA [address] [facility] [address] [place] [address] Phone: tel: fax: Leroy Iverson, PT [address] [facility] [address] [place] [address] Phone: tel: fax: Referral IDStatusReasonStart DateExpiration DateVisits RequestedVisits [id number] Consult and Treat [facility] HealthcareReason for visit Narrative* Consultation (Routine) - Closed SpecialtyDiagnoses / ProceduresReferred By ContactReferred To ContactPhysical Therapy Diagnoses Acute pain of left shoulder Scapular dyskinesis Procedures CO OFFICE/OUTPATIENT [facility] MDM 60 MINUTES John Ceja PA [address] [facility] [address] [place] [address] Phone: tel: fax: Leroy Iverson, PT [address] [facility] [address] [place] [address] Phone: tel: fax: Referral IDStatusReasonStart DateExpiration DateVisits RequestedVisits [id number] Consult and Treat [facility] Healthcare Summary Purpose Family History [...] section and content) DATE CREATED AUTHOR 09/22/2022 [facility] DATE CREATED AUTHOR AUTHOR'S ORGANIZ ATION 02/05/2025 [facility] DATE CREATED AUTHOR AUTHOR'S ORGANIZ ATION 03/07/2025 [facility] DATE CREATED AUTHOR AUTHOR'S ORGANIZ ATION 03/14/2025 [facility] Care Teams (unrecognized sec tion and content) Team MemberRelationshipSpecialtyStart DateEnd Date Aris Bishop MD [address] [place] [facility] [place] [address] PCP - GeneralFamily Klcbubha08/30/23Te MemberRelationshipSpecialtyStart Date End Date Aris Bishop MD [address] [place] [facility] [place] [address] PCP - GeneralFamily Nrutgnez58/30/23Team MemberRelationshipSpecialtyStart Date End Date Aris Bishop MD [address] [place] [facility] [place] [address] PCP - GeneralFamily Awjoscyd10/30/23Team MemberRelationshipSpecialtyStart Date End Date Aris Bishop MD [address] [place] [facility] [place] [address] PCP - GeneralFamily Dwekdjhl12/30/23Team MemberRelationshipSpecialtyStart Date End Date Aris Bishop MD [address] [place] [facility] [place] [address] PCP - GeneralFamily Mmsizmfz09/30/23Team MemberRelationshipSpecialtyStart Date End Date Aris Bishop MD [address] [place] [facility] [place] [address] PCP - GeneralFamily Kiamckwp00/30/23Team MemberRelationshipSpecialtyStart Date End Date Aris Bishop MD [address] [place] [facility] [place] [address] PCP - GeneralFamily Njnajbla50/30/23Team MemberRelationshipSpecialtyStart Date End Date Aris Bishop MD [address] [facility], [facility] PCP - GeneralFamily Ggoxpdgi13/30/23Team MemberRelationshipSpecialtyStart Date End Date Aris Bishop MD [address] [facility], [facility] PCP - GeneralFamily Xmzykkah48/30/23Team MemberRelationshipSpecialtyStart Date End Date Aris Bishop MD [address] [facility], [facility] PCP - GeneralFamily Qugzyrfe42/30/23Team MemberRelationshipSpecialtyStart Date End Date Aris Bishop MD [address] [facility], [facility] PCP - GeneralFamily Wcjdfuhl69/30/23Team MemberRelationshipSpecialtyStart Date End Date Aris Bishop MD [address] [place] [facility] [place] [address] PCP - GeneralFamily Ulkoklwh23/30/23Team MemberRelationshipSpecialtyStart Date End Date Aris Bishop MD [address] [place] [facility] [place] [address] PCP - GeneralMercyone [facility]ouxland Medical Centerly Yczzymoo34/30/23Team MemberRelationshipSpecialtyStart Date End Date Aris Bishop MD [address] [place] [facility] [place] [address] [facility] - [facility] Dpkixchd98/30/23Team MemberRelationshipSpecialtyStart Date End Date Aris Bishop MD [address] [place] [facility] [place] [address] PCP - [facility] Dkempzck30/30/23Team MemberRelationshipSpecialtyStart Date End Date Aris Bishop MD [address] [place] [facility] [place] [address] PCP - [facility] Mwnfbesd96/30/23Team MemberRelationshipSpecialtyStart Date End Date Aris Bishop MD [address] [place] [facility] [place] [address] PCP - [facility] Pvcpcpxn19/30/23 Team Status: Active Member Role Status Dates Aris Bishop MD Primary Care Provider Active Team Status: Inactive Member Role Status Dates Migdalia Crystal DO Attending Provider Active Sta rt: January 14, 2025 End: January 14, 2025Kaylie Mario Care ProviderActiveStart: January 14, 2025 End: January 14, 2025Team MemberRelationshipSpecialtyStart DateEnd Date Aris Bishop MD [address] [place] [facility] [place] [address] PCP - GeneralFamily Qyqdrndu78/30/23Team MemberRelationshipSpecialtyStart Date End Date Aris Bishop MD [address] [place] [address] PCP - GeneralFamily Dfnqauik38/30/23 Reason for Visit (unrecogniz ed section and content) ReasonCommentsToe Cgowogh25ay 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 Pt relates having lichens planus and is now localized to right foot, pt relates very itchy.ReasonCommentsWell Women VisitReasonCommentsPainReasonCommentsFollow-upReasonCommentsPainReasonOnset Date Commentschange appt08/28/2024ReasonCommentsResultsReasonCommentsMenstrual Problem Goals (unrecognized section and content) Goals [...] BE BASED ON THE PRIMARY CLINICAL RECORDS. [employer] [facility]. provides no warranty or guarantee of the accuracy or completeness of information in this document.
== END 2025-04-15 15:31 | disposition home or self-care (01) ==
LOC: LAB 15:30
PROVIDERS: PCP Family Medicine; Visit Provider Obstetrics & Gynecology
DX: Z01.419 Encounter for gynecological examination (general) (routine) without abnormal findings (principal)
CPT/HCPCS: 87624; 88175